=== PATIENT | male | born 1995 | race Caucasian/White ===

== ENCOUNTER 2017-12-06 09:32 | Inpatient (IN) | payer OTHER ==
[2017-12-06 09:40] VITALS: BMI 26.2
[2017-12-06] MEDS ORDERED: ACETAMINOPHEN 500 MG TABLET (FP) PO ONE (12:12)
[2017-12-06] MEDS ORDERED: CLINDAMYCIN 600MG PREMIX IVPB 600 MG/50 ML BAG IVPB ONE ×2 (12:12→13:18)
--- NOTE | 2017-12-06 12:49 | PDOC ---
History of Present Illness - General Chief Complaint: Abscess Boil Stated Complaint: ABSCESS BOIL Time Seen by Provider: 12/06/17 10:37 History Source: Patient, Parent(s) (mother) Exam Limitations: No Limitations - History of Present Illness Initial Comments: 12/06/17 12:00 22-year-old male brought in by mother for evaluation of abscess to the right knee and right arm. Patient with history of cerebral palsy who was mainly wheelchair bound but can pull himself on the ground. Patient goes to day program and mother states unsure when the abscess started on his right arm although she bathes him. She states patient started complaining of the one on his right arm this morning but states the abscess on his right knee started 3 days ago but has worsened in severity over the past few days. Patient denies fever, chills but states pain with movement or palpation minimally relieved with Motrin. Mother denies history of MRSA. Timing/Duration: unsure, getting worse Severity: moderate Associated Symptoms: denies: fever/chills Past History - Travel Traveled outside of the country in the last 30 days: No - Past Medical History Allergies/Adverse Reactions: Allergies Allergy/AdvReac Type Severity Reaction Status Date / Time No Known Allergies Allergy Verified 12/06/17 09:34 Home Medications: Ambulatory Orders Enalapril Maleate 0 mg PO DAILY 12/06/17 Hydrochlorothiazide [Hctz -] 0 mg PO DAILY 12/06/17 Levothyroxine [Synthroid -] 0 mcg PO DAILY 12/06/17 COPD: No Hypercholesterolemia: Yes Thyroid Disease: Yes (HYPER) Other medical history: CEREBRAL PALSY - Suicide/Smoking/Psychosocial Hx Smoking History: Never smoked Have you smoked in the past 12 months: No Information on smoking cessation initiated: No Hx Alcohol Use: No Drug/Substance Use Hx: No Substance Use Type: None Patient Lives Alone: No Lives with/in: parents Review of Systems - Review of Systems Able to Perform ROS?: Yes Constitutional: No: Symptoms Reported HEENTM: No: Symptoms Reported Respiratory: No: Symptoms reported Cardiac (ROS): No: Symptoms Reported ABD/GI: No: Symptoms Reported : No: Symptoms Reported Musculoskeletal: Yes: Joint Pain (right knee) Integumentary: Yes: Erythema, Lumps *Physical Exam - Vital Signs Last Vital Signs Temp Pulse Resp BP Pulse Ox 98.7 F 117 H 18 165/93 100 12/06/17 09:34 12/06/17 09:34 12/06/17 09:34 12/06/17 09:34 12/06/17 09:34 - Physical Exam General Appearance: Yes: Nourished, Appropriately Dressed. No: Apparent Distress Respiratory/Chest: positive: Lungs Clear, Normal Breath Sounds. negative: Respiratory Distress, Accessory Muscle Use Cardiovascular: positive: Regular Rhythm, Tachycardia. negative: Murmur Extremity: positive: Normal Capillary Refill, Tender (noted5 x 3" tender erythematous raised papule with center draining nonodorous purulence drainage. No fluctuance. surrounding skin intact). negative: Normal Inspection (noted 4 x 4 " erythematous raised papule over the right patellla. Noted crepitus to lateral aspect of opened center which is draining minimal purulent drainage. surrounding skin intact), Normal Range of Motion (slightly contracted) Integumentary: positive: Erythema, Swelling Neurologic: positive: Normal Mood/Affect, Motor Strength 02/25 ED Treatment Course - LABORATORY CBC & Chemistry Diagram: 12/06/17 13:30 12/06/17 13:30 - RADIOLOGY Radiology Studies Ordered: Category Date Time Status LOWER EXTREMITY CT W/O CONTR [CT] Stat CT Scan 12/06/17 12:11 Ordered Medical Decision Making - Medical Decision Making 12/06/17 12:12 Patient sent for evaluation of 2 draining abscesses was right forearm and right knee. mother denies history of MRSA. Patient concerning for sepsis secondary to heart rate and clinical presentation of wounds. Patient ordered for IV clindamycin cleaning blood cultures, lactic acid and CT of the right patella. wound culture ordered. 12/06/17 15:19 Laboratory Tests 12/06/17 12/06/17 13:30 13:30 WBC 10.2 H Hgb 15.4 Hct 46.0 Neutrophils % 66.5 Monocytes % 14.6 H Lactic Acid 2.3 H* 12/06/17 16:02 ET of the lower extremity shows confluent complex prepatellar fluid as described above may be attributed to the provided clinical history of abscess. However alternative consideration to be considered including prepatellar bursitis and hematoma. Right prepatellar skin thickening and subcutaneous fat reticulation with fluid extending from the level of the distal femur to the proximal tibia is nonspecific. Please correlate for cellulitis. Pt to be admitted to hospitalist group *DC/Admit/Observation/Transfer Diagnosis at time of Disposition: Elevated lactic acid level, Cellulitis - Discharge Dispostion Admit: Yes - Referrals Referrals: Osmani Lee [Primary Care Provider] - - Patient Instructions - Post Discharge Activity
[2017-12-06] MEDS ORDERED: ACETAMINOPHEN 325 MG TABLET (FP) ONE ×2 (13:19→20:01)
[2017-12-06 13:58] LABS: BASO % 0.3 % (0-2.0); EOS % 0.8 % (0-4.5); HEMOGLOBIN 15.4 GM/dL (11.7-16.9); LYMPH % 17.8 % (8-40); MCH 28.8 pg (25.7-33.7); MCHC 33.5 g/dl (32.0-35.9); MEAN PLT VOLUME 7.8 fl (7.5-11.1); MONO % 14.6 % (3.8-10.2); NEUT % 66.5 % (42.8-82.8); PLATELET COUNT 383 K/MM3 (134-434); RBC 5.35 M/mm3 (4.00-5.60); RDW 12.2 % (11.9-15.9); WHITE BLOOD COUNT 10.2 K/mm3 (4.0-10.0)
--- NOTE | 2017-12-06 18:14 | PDOC ---
*Physical Exam - Vital Signs Last Vital Signs Temp Pulse Resp BP Pulse Ox 98.7 F 117 H 18 165/93 100 12/06/17 09:34 12/06/17 09:34 12/06/17 09:34 12/06/17 09:34 12/06/17 09:34 ED Treatment Course - LABORATORY CBC & Chemistry Diagram: 12/06/17 13:30 12/06/17 13:30 - ADDITIONAL ORDERS Additional order review: Laboratory Results 12/06/17 12/06/17 12/06/17 15:30 13:30 13:30 Sodium Cancelled Cancelled Potassium Cancelled Cancelled Chloride Cancelled Cancelled Carbon Dioxide Cancelled Cancelled Anion Gap Cancelled Cancelled BUN Cancelled Cancelled Creatinine Cancelled Cancelled Creat Clearance w eGFR Cancelled Cancelled Random Glucose Cancelled Cancelled Lactic Acid 2.3 H* Calcium Cancelled Cancelled Total Bilirubin Cancelled Cancelled AST Cancelled Cancelled ALT Cancelled Cancelled Alkaline Phosphatase Cancelled Cancelled Total Protein Cancelled Cancelled Albumin Cancelled Cancelled 12/06/17 13:30 RBC 5.35 MCV 86.0 MCHC 33.5 RDW 12.2 MPV 7.8 Neutrophils % 66.5 Lymphocytes % 17.8 Monocytes % 14.6 H Eosinophils % 0.8 Basophils % 0.3 - Medications Given in the ED: ED Medications Discontinued Medications Generic Name Dose Route Start Last Admin Trade Name Freq PRN Reason Stop Dose Admin Acetaminophen 975 mg 12/06/17 12:12 12/06/17 13:14 Tylenol - PO 12/06/17 12:13 975 mg ONCE ONE Administration Clindamycin Phosphate 600 mg in 50 mls @ 100 mls/hr 12/06/17 12:12 12/06/17 13:14 Cleocin 600 Mg Premix Ivpb - IVPB 12/06/17 12:41 100 mls/hr ONCE ONE Administration Medical Decision Making - Medical Decision Making 12/06/17 18:11 22 yo M h/o CP presenting to the ER due to right arm and right knee abscess Mild surrounding erythema No fevers or chills No drainage Pt has had abscesses in the past ? MRSA GENERAL: The patient is in no acute distress. HEAD: Normal LUNGS: Breath sounds equal, clear to auscultation bilaterally. No wheezes, and no crackles. HEART:Regular rate and rhythm, normal S1 and S2 without murmur, rub or gallop. ABDOMEN: Soft, nontender, normoactive bowel sounds. No guarding, no rebound. No masses palpable. EXTREMITIES: Normal range of motion, no edema. NEUROLOGICAL: Cranial nerves II through XII grossly intact. Normal speech. No focal neurological deficits. MUSCULOSKELETAL: Back non-tender to palpation, no CVA tenderness SKIN: Right forearm abscess Right knee abscess Pt would not allow me to touch the area of tenderness Patient appears to have local abscesses Will plan to give antibiotics Will plan to have patient admitted Clinical impression: Abscess, initial presentation Pt seen by Midlevel Provider under my direct supervision Pt interviewed and examined Ancillary studies reviewed I agree with plan as outlined by Midlevel Provider *DC/Admit/Observation/Transfer Diagnosis at time of Disposition: Elevated lactic acid level, Cellulitis - Referrals Referrals: Osmani Lee [Primary Care Provider] - - Patient Instructions - Post Discharge Activity
[2017-12-06] MEDS ORDERED: VANCOMYCIN 1,000 MG in DEXTROSE 5%-WATER - 250 ML IVPB ONE (18:30)
[2017-12-06 18:49] LABS: ALBUMIN 3.6 g/dl (3.4-5.0); ANION GAP 7 (8-16); BLOOD UREA NITROGEN 12 mg/dL (7-18); CALCIUM 8.7 mg/dL (8.5-10.1); CHLORIDE 97 mmol/L (98-107); CO2 31 mmol/L (21-32); GLUCOSE,RANDOM 93 mg/dL (74-106); POTASSIUM 3.3 mmol/L (3.5-5.1); SGOT/AST 65 U/L (15-37); SODIUM 135 mmol/L (136-145)
[2017-12-06 19:12] LABS: ALK PHOS 107 U/L (45-117); SGPT/ALT 55 U/L (12-78); TOT PROT 7.5 g/dl (6.4-8.2)
[2017-12-06] MEDS ORDERED: PIPERACILLIN/TAZOB 3.375 GM/50 ML PRE-DOCKED IVPB SCH (19:15)
--- NOTE | 2017-12-06 19:16 | HP ---
CHIEF COMPLAINT: Painful abscesses right knee and right arm PCP: Osmani Lee HISTORY OF PRESENT ILLNESS: 22 year-old young man with a PMH significant for hypothyroidism and cerebral palsy with developmental delay, wheelchair bound. Patient brought to the ED by his mother for draining abscesses of his right knee and right forearm. Mother states patient is taken out of his wheelchair at times and is allowed to pull himself across the floor. She noticed a pimple on his right knee about three days ago. Today the pimple became enlarged, painful, and started draining pus. It was only today when patient complained of pain to his right arm that she noticed a similar large, painful, draining abscess on his right forearm. Mother states patient has not had a fever, sweats, or chills, nausea, vomiting, or diarrhea. ER course was notable for: (1) Clindamycin IV 600mg x 1; Tylenol (2) Right knee culture sent Recent Travel: No PAST MEDICAL HISTORY: Hypothyroidism Cerebral palsy Developmental delay PAST SURGICAL HISTORY: Social History: attends [employer]; lives with mother, stepfather, other children Smoking: no Alcohol: no Drugs: no Family History: Allergies No Known Allergies Allergy (Verified 12/06/17 09:34) HOME MEDICATIONS: Home Medications Medication Instructions Recorded Enalapril Maleate 0 mg PO DAILY 12/06/17 Hydrochlorothiazide [Hctz -] 0 mg PO DAILY 12/06/17 Levothyroxine [Synthroid -] 0 mcg PO DAILY 12/06/17 REVIEW OF SYSTEMS CONSTITUTIONAL: Absent: fever, chills, diaphoresis, generalized weakness, malaise, loss of appetite, weight change HEENT: Absent: rhinorrhea, nasal congestion, throat pain, throat swelling, difficulty swallowing, mouth swelling, ear pain, eye pain, visual changes CARDIOVASCULAR: Absent: chest pain, syncope, palpitations, irregular heart rate, lightheadedness , peripheral edema RESPIRATORY: Absent: cough, shortness of breath, dyspnea with exertion, orthopnea, wheezing, stridor, hemoptysis GASTROINTESTINAL: Absent: abdominal pain, abdominal distension, nausea, vomiting, diarrhea, constipation, melena, hematochezia GENITOURINARY: Absent: dysuria, frequency, urgency, hesitancy, hematuria, flank pain, genital pain MUSCULOSKELETAL: Absent: myalgia, arthralgia, joint swelling, back pain, neck pain SKIN: +right knee abscess, right forearm abscess Absent: rash, itching, pallor HEMATOLOGIC/IMMUNOLOGIC: Absent: easy bleeding, easy bruising, lymphadenopathy, frequent infections ENDOCRINE: Absent: unexplained weight gain, unexplained weight loss, heat intolerance, cold intolerance NEUROLOGIC: Absent: headache, focal weakness or paresthesias, dizziness, unsteady gait, seizure, mental status changes, bladder or bowel incontinence PSYCHIATRIC: Absent: anxiety, depression, suicidal or homicidal ideation, hallucinations. PHYSICAL EXAMINATION Vital Signs - 24 hr 12/06/17 09:34 Temperature 98.7 F Pulse Rate 117 H Respiratory 18 Rate Blood Pressure 165/93 O2 Sat by Pulse 100 Oximetry (%) GENERAL/NEURO: Awake, alert, and fully oriented. Tearful, distressed about mother leaving him alone. HEAD: Normal with no signs of trauma. EYES: Pupils equal, round and reactive to light, extraocular movements intact, sclera anicteric, conjunctiva clear. No lid lag. EARS, NOSE, THROAT: Ears normal, nares patent, oropharynx clear without exudates. Moist mucous membranes. NECK: Normal range of motion, supple without lymphadenopathy, JVD, or masses. LUNGS: Breath sounds equal, clear to auscultation bilaterally. No wheezes, and no crackles. No accessory muscle use. HEART: Regular rate and rhythm, normal S1 and S2 without murmur, rub or gallop. ABDOMEN: Soft, nontender, not distended, normoactive bowel sounds, no guarding, no rebound, no masses. MUSCULOSKELETAL: Normal range of motion at all joints. No bony deformities or tenderness. No CVA tenderness. UPPER EXTREMITIES: RIGHT FOREARM: large, approx 10cm in circumference, area of induration with a raised center, erythematous, warm to touch, no drainage observed LOWER EXTREMITIES: RIGHT KNEE: large, approx 8cm in circumference, area of induration, fluid, with raised center, erythematous, warm to touch, no drainage observed Laboratory Results - last 24 hr 12/06/17 12/06/17 12/06/17 13:30 13:30 13:30 WBC 10.2 H RBC 5.35 Hgb 15.4 Hct 46.0 MCV 86.0 MCH 28.8 MCHC 33.5 RDW 12.2 Plt Count 383 MPV 7.8 Neutrophils % 66.5 Lymphocytes % 17.8 Monocytes % 14.6 H Eosinophils % 0.8 Basophils % 0.3 Sodium Cancelled Potassium Cancelled Chloride Cancelled Carbon Dioxide Cancelled Anion Gap Cancelled BUN Cancelled Creatinine Cancelled Creat Clearance w eGFR Cancelled Random Glucose Cancelled Lactic Acid 2.3 H* Calcium Cancelled Total Bilirubin Cancelled AST Cancelled ALT Cancelled Alkaline Phosphatase Cancelled Total Protein Cancelled Albumin Cancelled 12/06/17 15:30 WBC RBC Hgb Hct MCV MCH MCHC RDW Plt Count MPV Neutrophils % Lymphocytes % Monocytes % Eosinophils % Basophils % Sodium Cancelled Potassium Cancelled Chloride Cancelled Carbon Dioxide Cancelled Anion Gap Cancelled BUN Cancelled Creatinine Cancelled Creat Clearance w eGFR Cancelled Random Glucose Cancelled Lactic Acid Calcium Cancelled Total Bilirubin Cancelled AST Cancelled ALT Cancelled Alkaline Phosphatase Cancelled Total Protein Cancelled Albumin Cancelled Imaging 12/06 CT RLE: mild confluent fluid within subq fat and subq fat reticulation from distal femur to proximal tibia; fluid overlying the patella with extension posteriorly; thickening of quadricepts tendon suggestive of tendinopathy with possible tears. ASSESSMENT/PLAN: 22 year-old young man with a PMH significant for hypothyroidism and cerebral palsy with developmental delay, admitted for two large, draining skin abscesses. Right forearm abscess Right knee abscess Cellulitis --start vanco and Zosyn --ortho consult for knee; will see if ortho will address arm abscess, if not will need general surgery --ID consult --Tylenol PRN (mother does not want narcotics to be given) Hypothyroidism --TSH ordered --continue levothyroxine Hypertension --continue enalapril, HCTZ FEN Fluids: PO intake adequate Electrolytes: replete as indicated Nutrition: low sodium DVT prophylaxis: hold chemical prophylaxis pending surgical intervention; SCD left leg Physical therapy: ROM Dispo: continues to require inpatient care. Full code. Visit type - Emergency Visit Emergency Visit: Yes ED Registration Date: 12/06/17 Care time: The patient presented to the Emergency Department on the above date and was hospitalized for further evaluation of their emergent condition. - New Patient This patient is new to me today: Yes Date on this admission: 12/07/17 - Critical Care Critical Care patient: No
[2017-12-06] MEDS ORDERED: HYDROCHLOROTHIAZIDE 25 MG TABLET (FP) ONE ×2 (21:16→22:56)
[2017-12-06] MEDS ORDERED: ENALAPRIL MALEATE 5 MG TABLET (FP) ONE ×2 (21:16→22:56)
[2017-12-06] MEDS ORDERED: PIPERACILLIN/TAZOB 3.375 GM 3.375 GM/50 ML BAG IVPB ONE (21:17)
[2017-12-06] MEDS: ENALAPRIL MALEATE 2.5 MG TABLET (FP) PO SCH (22:04)
[2017-12-06] MEDS: HYDROCHLOROTHIAZIDE 12.5 MG CAPSULE (FP) PO SCH (22:04)
[2017-12-06] MEDS: PIPERACILLIN/TAZOB 3.375 GM 3.375 GM in DEXTROSE 5%-WATER - 50 ML IVPB SCH (22:04)
[2017-12-06] MEDS: HEPARIN NA (PORCINE) 5,000 UNITS/ML 1ML VIAL SQ SCH (22:05)
[2017-12-07] MEDS ORDERED: POTASSIUM CHLORIDE TABS 20 MEQ TABLET.ER (FP) PO ONE ×2 (01:35→07:35)
[2017-12-07] MEDS: POTASSIUM CHLORIDE TABS 20 MEQ TABLET.ER (FP) PO SCH ×2 (02:03→08:08)
[2017-12-07] MEDS ORDERED: PIPERACILLIN/TAZOB 3.375 GM 3.375 GM/50 ML BAG IVPB ONE (02:29)
[2017-12-07] MEDS: PIPERACILLIN/TAZOB 3.375 GM 3.375 GM in DEXTROSE 5%-WATER - 50 ML IVPB SCH (02:43)
[2017-12-07] MEDS ORDERED: LEVOTHYROXINE NA 25 MCG TABLET (FP) ONE (07:35)
[2017-12-07 07:41] LABS: BASO % 0.2 % (0-2.0); EOS % 3.7 % (0-4.5); HEMATOCRIT 45.6 % (35.4-49); LYMPH % 27.5 % (8-40); MCH 28.6 pg (25.7-33.7); MEAN CELL VOLUME 86.8 fl (80-96); MEAN PLT VOLUME 8.2 fl (7.5-11.1); MONO % 15.4 % (3.8-10.2); NEUT % 53.2 % (42.8-82.8); PLATELET COUNT 330 K/MM3 (134-434); RBC 5.26 M/mm3 (4.00-5.60); RDW 12.7 % (11.9-15.9); WHITE BLOOD COUNT 6.4 K/mm3 (4.0-10.0)
[2017-12-07] MEDS ORDERED: POTASSIUM CHLORIDE ORAL LIQUID 20 MEQ/15 ML ONE (07:48)
[2017-12-07 08:08] LABS: CHLORIDE 98 mmol/L (98-107); SODIUM 136 mmol/L (136-145)
[2017-12-07] MEDS: LEVOTHYROXINE NA 25 MCG TABLET (FP) PO SCH (08:08)
[2017-12-07 08:18] LABS: ALBUMIN 3.4 g/dl (3.4-5.0); ALK PHOS 103 U/L (45-117); ANION GAP 10 (8-16); BILIRUBIN,TOTAL 0.8 mg/dL (0.2-1.0); BLOOD UREA NITROGEN 11 mg/dL (7-18); CALCIUM 8.7 mg/dL (8.5-10.1); CO2 28 mmol/L (21-32); CREATININE 1.2 mg/dL (0.7-1.3); GLUCOSE,RANDOM 86 mg/dL (74-106); MAGNESIUM 1.8 mg/dL (1.8-2.4); PHOSPHOROUS 3.9 mg/dL (2.5-4.9); SGOT/AST 59 U/L (15-37); SGPT/ALT 58 U/L (12-78); TOT PROT 7.2 g/dl (6.4-8.2)
[2017-12-07] MEDS: ENALAPRIL MALEATE 2.5 MG TABLET (FP) PO SCH (11:00)
[2017-12-07] MEDS: HYDROCHLOROTHIAZIDE 12.5 MG CAPSULE (FP) PO SCH (11:00)
[2017-12-07] MEDS: HEPARIN NA (PORCINE) 5,000 UNITS/ML 1ML VIAL SQ SCH (12:15)
--- NOTE | 2017-12-07 12:41 | PN ---
Physical Exam: SUBJECTIVE: Patient seen and examined with mother present. Periods of agitation , expresses he wants to go home. OBJECTIVE: Vital Signs Period Temp Pulse Resp BP Sys/Hubbard Pulse Ox Last 24 Hr 98.4 F-98.5 F 78-101 16-18 128-148/74-110 99-99 GENERAL/NEURO: Awake, alert, and fully oriented. Anxious. LUNGS: Breath sounds equal, clear to auscultation bilaterally. No wheezes, and no crackles. No accessory muscle use. HEART: Regular rate and rhythm, normal S1 and S2 without murmur, rub or gallop. ABDOMEN: Soft, nontender, not distended, normoactive bowel sounds, no guarding, no rebound, no masses. MUSCULOSKELETAL: Normal range of motion at all joints. No bony deformities or tenderness. No CVA tenderness. UPPER EXTREMITIES: RIGHT FOREARM: large, approx 10cm in circumference, area of induration with a raised center, erythema improved, warm to touch, no drainage observed LOWER EXTREMITIES: RIGHT KNEE: large, approx 8cm in circumference, area of induration, fluid, with raised center, erythema improved, warm to touch, no drainage observed Laboratory Results - last 24 hr 12/06/17 12/06/17 12/06/17 13:30 13:30 13:30 WBC 10.2 H RBC 5.35 Hgb 15.4 Hct 46.0 MCV 86.0 MCH 28.8 MCHC 33.5 RDW 12.2 Plt Count 383 MPV 7.8 Neutrophils % 66.5 Lymphocytes % 17.8 Monocytes % 14.6 H Eosinophils % 0.8 Basophils % 0.3 Sodium Cancelled Potassium Cancelled Chloride Cancelled Carbon Dioxide Cancelled Anion Gap Cancelled BUN Cancelled Creatinine Cancelled Creat Clearance w eGFR Cancelled Random Glucose Cancelled Lactic Acid 2.3 H* Calcium Cancelled Phosphorus Magnesium Total Bilirubin Cancelled AST Cancelled ALT Cancelled Alkaline Phosphatase Cancelled Total Protein Cancelled Albumin Cancelled 12/06/17 12/06/17 12/07/17 15:30 16:05 06:30 WBC 6.4 D RBC 5.26 Hgb 15.0 Hct 45.6 MCV 86.8 MCH 28.6 MCHC 33.0 RDW 12.7 Plt Count 330 MPV 8.2 Neutrophils % 53.2 Lymphocytes % 27.5 D Monocytes % 15.4 H Eosinophils % 3.7 D Basophils % 0.2 Sodium Cancelled 135 L Potassium Cancelled 3.3 L Chloride Cancelled 97 L Carbon Dioxide Cancelled 31 Anion Gap Cancelled 7 L BUN Cancelled 12 Creatinine Cancelled 1.0 Creat Clearance w eGFR Cancelled > 60 Random Glucose Cancelled 93 Lactic Acid Calcium Cancelled 8.7 Phosphorus Magnesium Total Bilirubin Cancelled 1.0 AST Cancelled 65 H ALT Cancelled 55 Alkaline Phosphatase Cancelled 107 Total Protein Cancelled 7.5 Albumin Cancelled 3.6 12/07/17 12/07/17 06:30 06:57 WBC RBC Hgb Hct MCV MCH MCHC RDW Plt Count MPV Neutrophils % Lymphocytes % Monocytes % Eosinophils % Basophils % Sodium 136 Potassium 4.0 D Chloride 98 Carbon Dioxide 28 Anion Gap 10 BUN 11 Creatinine 1.2 Creat Clearance w eGFR > 60 Random Glucose 86 Lactic Acid 1.5 Calcium 8.7 Phosphorus 3.9 Magnesium 1.8 Total Bilirubin 0.8 AST 59 H ALT 58 Alkaline Phosphatase 103 Total Protein 7.2 Albumin 3.4 Active Medications Generic Name Dose Route Start Last Admin Trade Name Freq PRN Reason Stop Dose Admin Enalapril Maleate 2.5 mg 12/06/17 19:00 12/07/17 11:00 Vasotec - PO 2.5 mg DAILY JUAN Administration Hydrochlorothiazide 12.5 mg 12/06/17 19:00 12/07/17 11:00 Hctz - PO 12.5 mg DAILY JUAN Administration Levothyroxine Sodium 25 mcg 12/07/17 07:00 12/07/17 08:08 Synthroid - PO 25 mcg DAILY@0700 JUAN Administration Piperacillin Sod/Tazobactam Sod 3.375 gm 12/06/17 19:15 Zosyn 3.375gm Ivpb (Pre-Docked) IVPB Q8H [facility] Protocol ASSESSMENT/PLAN Imaging 12/06 CT RLE: mild confluent fluid within subq fat and subq fat reticulation from distal femur to proximal tibia; fluid overlying the patella with extension posteriorly; thickening of quadricepts tendon suggestive of tendinopathy with possible tears. ASSESSMENT/PLAN: 22 year-old young man with a PMH significant for hypothyroidism and cerebral palsy with developmental delay, admitted for two large, draining skin abscesses. Right forearm abscess Right knee abscess Cellulitis --mother gives history of boils, does not know MRSA status; continue vanco ( day #2) --ortho consult for knee, discussed with Dr. Vera --general surgery for arm, Dr. Ford requested --ID following --Tylenol PRN (mother does not want narcotics to be given) Hypothyroidism --TSH very elevated 53.50 --free T4 ordered --continue levothyroxine Hypertension Tachycardia --may be thyroid-related --increase enalapril to 5mg daily; continue HCTZ FEN Fluids: PO intake adequate Electrolytes: replete as indicated Nutrition: low sodium DVT prophylaxis: hold chemical prophylaxis pending surgical intervention; SCD left leg Physical therapy: ROM Dispo: continues to require inpatient care. Full code. Visit type - Emergency Visit Emergency Visit: Yes ED Registration Date: 12/06/17 Care time: The patient presented to the Emergency Department on the above date and was hospitalized for further evaluation of their emergent condition. - New Patient This patient is new to me today: No - Critical Care Critical Care patient: No
[2017-12-07] MEDS ORDERED: VANCOMYCIN 1 GRAM (PRE-DOCKED) 1,000 MG/250 ML BAG IVPB ONE (13:45)
--- NOTE | 2017-12-07 13:48 | CON.ID ---
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 presents with worsening abscess on his right arm and right knee he gets frequent skin boils- mom places warm compresses and they usually pop sometimes he takes antibiotics she is unaware of MRSA status no fevers/chills eating well - History Source History Provided By: Family Member Limitations to Obtaining History: Clinical Condition - Past Medical History PHERESIS SPECIALIST: Yes: Other (cerebral palsy) Endocrine: Yes: Hypothyroidism - Alcohol/Substance Use Hx Alcohol Use: No - Smoking History Smoking history: Never smoked Have you smoked in the past 12 months: No - Social History Usual Living Arrangement: With Parent ADL: Family Assistance Place of : [facility] History of Recent Travel: No Home Medications - Allergies Allergies/Adverse Reactions: Allergies Allergy/AdvReac Type Severity Reaction Status Date / Time No Known Allergies Allergy Verified 12/06/17 09:34 - Home Medications Home Medications: Ambulatory Orders Enalapril Maleate 0 mg PO DAILY 12/06/17 Hydrochlorothiazide [Hctz -] 0 mg PO DAILY 12/06/17 Levothyroxine [Synthroid -] 0 mcg PO DAILY 12/06/17 Family Disease History - Family Disease History Family History: Unable to Obtain Review of Systems - Review of Systems Constitutional: reports: No Symptoms. denies: Chills, Fever Eyes: reports: No Symptoms HENT: reports: No Symptoms Neck: reports: No Symptoms Cardiovascular: denies: Chest Pain Respiratory: denies: Cough, SOB Gastrointestinal: denies: Abdominal Pain Musculoskeletal: reports: No Symptoms Integumentary: reports: Other (abscesses) Physical Exam Vital Signs: Vital Signs Temperature 98.4 F 12/06/17 22:05 Pulse Rate 101 H 12/07/17 10:30 Respiratory Rate 18 12/07/17 10:30 Blood Pressure 148/110 12/07/17 10:30 O2 Sat by Pulse Oximetry (%) 99 12/07/17 10:30 Constitutional: Yes: Well Nourished, Anxious HENT: Yes: Atraumatic, Normocephalic Neck: Yes: Supple, Trachea Midline Cardiovascular: Yes: Regular Rate and Rhythm Respiratory: Yes: Regular, CTA Bilaterally Gastrointestinal: Yes: Normal Bowel Sounds, Soft Extremities: Yes: Other (right elbow with 3 cm abscess on patella, 2 cm abscess right upper arm +erythema) Labs: CBC, BMP 12/07/17 06:30 12/07/17 06:30 cultures pending Imaging - Results Cat Scan: Report Reviewed Problem List - Problems (1) Abscess Code(s): L02.91 - CUTANEOUS ABSCESS, UNSPECIFIED (2) Cerebral palsy Code(s): G80.9 - CEREBRAL PALSY, UNSPECIFIED Assessment/Plan skin abscesses with history of recurrent skin boils most likely staph or strep continue vancomycin, surgical evaluation
[2017-12-07] MEDS: VANCOMYCIN 1,000 MG in DEXTROSE 5%-WATER - 250 ML IVPB SCH ×2 (13:50→14:09)
--- NOTE | 2017-12-07 15:36 | PN ---
Progress Note (short form) - Note Progress Note: General Surgery: Pt seen and examined with his mother at the bedside. She states that while changing his shirt he flinched with pain and stated that his arm hurt. His mother was aware of his right knee redness and had been applying warm compresses. This has happened to him in the past because he is wheelchair bound but does crawl on his forearms. No fevers/chills. Overall, the mother states that his arm has improved, not as red PMHX: Cerebral palsy, developmental delay, hypothyroidism Vital Signs Period Temp Pulse Resp BP Sys/Hubbard Pulse Ox Last 24 Hr 98.4 F-98.5 F 78-101 16-18 128-148/74-110 99-99 GEN: appears comfortable Right upper ext: quarter sized scab area with mild erythema approximately 1cm. Mild induration/no purulent drainage but somewhat difficult to access the level of tenderness because pt retracts his arm with examination. CBC, BMP 12/07/17 06:30 12/07/17 06:30 Microbiology 12/06/17 13:30 Blood - Peripheral Venous Blood Culture - Preliminary NO GROWTH OBTAINED AFTER 24 HOURS, INCUBATION TO CONTINUE FOR 4 DAYS. 12/06/17 13:15 Blood - Peripheral Venous Blood Culture - Preliminary NO GROWTH OBTAINED AFTER 24 HOURS, INCUBATION TO CONTINUE FOR 4 DAYS. A/P: 22 yo male with CP right forearm abscess Abscess seems to be clinically improving, he was treated with IV Vacno/zosyn Recommend warm compresses to the area with bacitracin daily and keep the area covered D/w Dr. Ford and he agress with the care plan If the patient is to be discharged recommend the above local wound care with continued oral antibiotics as per ID Pt to f/u with Dr. Ford in his office for wound check
[2017-12-07] MEDS: ENALAPRIL MALEATE 5 MG TABLET (FP) PO SCH (17:02)
--- NOTE | 2017-12-07 17:46 | CONSULT ---
Consult - History of Present Illness History of Present Illness: 22y/o male c/o right knee pain which began 4 days ago. mother states he crawls on the ground and might have had a small cut on the knee. Pt has a history of CP and is unable to walk. He had increased pain, swelling and redness of the knee and was eventually taken to the ER. Has been on IV abx and symptoms have been improving. - History Source History Provided By: Patient, Medical Record - Past Medical History [employer]: Yes: Other (cerebral palsy) Endocrine: Yes: Hypothyroidism - Alcohol/Substance Use Hx Alcohol Use: No - Smoking History Smoking history: Never smoked Have you smoked in the past 12 months: No - Social History Usual Living Arrangement: With Parent ADL: Family Assistance History of Recent Travel: No Home Medications - Allergies Allergies/Adverse Reactions: Allergies Allergy/AdvReac Type Severity Reaction Status Date / Time No Known Allergies Allergy Verified 12/06/17 09:34 - Home Medications Home Medications: Ambulatory Orders Enalapril Maleate 0 mg PO DAILY 12/06/17 Hydrochlorothiazide [Hctz -] 0 mg PO DAILY 12/06/17 Levothyroxine [Synthroid -] 0 mcg PO DAILY 12/06/17 Review of Systems - Review of Systems Constitutional: reports: No Symptoms Eyes: reports: No Symptoms HENT: reports: No Symptoms Neck: reports: No Symptoms Cardiovascular: reports: No Symptoms Respiratory: reports: No Symptoms Gastrointestinal: reports: No Symptoms Genitourinary: reports: No Symptoms Breasts: reports: No Symptoms Reported Musculoskeletal: reports: No Symptoms Integumentary: reports: No Symptoms Neurological: reports: No Symptoms Endocrine: reports: No Symptoms Hematology/Lymphatic: reports: No Symptoms Psychiatric: reports: No Symptoms Physical Exam Vital Signs: Vital Signs Temperature 98.3 F 12/07/17 17:07 Pulse Rate 113 H 12/07/17 17:07 Respiratory Rate 20 12/07/17 17:07 Blood Pressure 154/114 12/07/17 17:07 O2 Sat by Pulse Oximetry (%) 96 12/07/17 17:07 Constitutional: Yes: Well Nourished, Calm HENT: Yes: Atraumatic, Normocephalic Musculoskeletal: Yes: Other (Right knee: There is a aproxamently 1.5cmx1.5cm area of erythema along the patella. there is mild swelling in this area and a healed wound without drainage along the patella. No palpable abcess. No joint space tenderness. Smooth motion of the knee 0-90 degrees. has mild discomfort with ROM. patella centrally tracking. Calf nontender. Compartments soft. NVID.) Labs: CBC, BMP 12/07/17 06:30 12/07/17 06:30 Imaging - Results Cat Scan: Report Reviewed, Image Reviewed (Prepatellar fluid.) Assessment/Plan Right knee cellulitis, improving on IV abx -Continue ABX per ID -No surgical intervention indicated at this time -Awaiting C/S -Please reconsult if needed
[2017-12-07] MEDS: ACETAMINOPHEN 325 MG TABLET (FP) PO PRN (18:31)
[2017-12-07] MEDS: BACITRACIN 15 GM TUBE TOPICAL OINTMENT TP SCH (22:18)
[2017-12-08] MEDS: VANCOMYCIN 1,000 MG in DEXTROSE 5%-WATER - 250 ML IVPB SCH ×2 (01:36→14:39)
[2017-12-08] MEDS: ACETAMINOPHEN 325 MG TABLET (FP) PO PRN ×3 (01:57→21:07)
[2017-12-08] MEDS: LEVOTHYROXINE NA 25 MCG TABLET (FP) PO SCH (06:13)
[2017-12-08 07:41] LABS: BASO % 0.4 % (0-2.0); EOS % 4.4 % (0-4.5); HEMATOCRIT 43.9 % (35.4-49); HEMOGLOBIN 14.5 GM/dL (11.7-16.9); LYMPH % 30.2 % (8-40); MCH 28.7 pg (25.7-33.7); MEAN CELL VOLUME 87.1 fl (80-96); MEAN PLT VOLUME 8.1 fl (7.5-11.1); MONO % 13.1 % (3.8-10.2); NEUT % 51.9 % (42.8-82.8); PLATELET COUNT 366 K/MM3 (134-434); RBC 5.04 M/mm3 (4.00-5.60); RDW 12.5 % (11.9-15.9); WHITE BLOOD COUNT 7.1 K/mm3 (4.0-10.0)
[2017-12-08 07:56] LABS: ALBUMIN 3.5 g/dl (3.4-5.0); ANION GAP 5 (8-16); BLOOD UREA NITROGEN 11 mg/dL (7-18); CALCIUM 8.8 mg/dL (8.5-10.1); CHLORIDE 99 mmol/L (98-107); CO2 33 mmol/L (21-32); GLUCOSE,RANDOM 87 mg/dL (74-106); MAGNESIUM 1.9 mg/dL (1.8-2.4); SGPT/ALT 52 U/L (12-78); SODIUM 137 mmol/L (136-145)
[2017-12-08 08:00] LABS: ALK PHOS 101 U/L (45-117); BILIRUBIN,TOTAL 0.7 mg/dL (0.2-1.0); CREATININE 1.2 mg/dL (0.7-1.3); SGOT/AST 33 U/L (15-37); TOT PROT 7.5 g/dl (6.4-8.2)
--- NOTE | 2017-12-08 10:04 | PN ---
Progress Note (short form) - Note Progress Note: Subjective: The patient was seen and examined at the bedside, he states he knee no longer hurts. He states he is missing his mother Current Medications Generic Name Dose Route Start Last Admin Trade Name Freq PRN Reason Stop Dose Admin Acetaminophen 650 mg 12/07/17 18:21 12/08/17 01:57 Tylenol - PO 650 mg Q6H PRN Administration PAIN LEVEL 6-10 Bacitracin 1 applic 12/07/17 22:00 12/07/17 22:18 Bacitracin - TP 1 applic BID JUAN Administration Enalapril Maleate 5 mg 12/07/17 14:53 12/07/17 17:02 Vasotec - PO 5 mg DAILY JUAN Administration Hydrochlorothiazide 12.5 mg 12/06/17 19:00 12/07/17 11:00 Hctz - PO 12.5 mg DAILY JUAN Administration Vancomycin HCl 1,000 mg/ 250 mls @ 166.667 mls/hr 12/07/17 13:45 12/08/17 01: 36 Dextrose IVPB 166.667 mls/hr BID@0200,1400 JUAN Administration Protocol Levothyroxine Sodium 25 mcg 12/07/17 07:00 12/08/17 06:13 Synthroid - PO 25 mcg DAILY@0700 JUAN Administration Objective: Vital Signs Period Temp Pulse Resp BP Sys/Hubbard Pulse Ox Last 24 Hr 98.3 F-99.3 F 64-113 18-20 134-154/78-114 96-99 Physical Exam: General: NAD HEENT: B/l strabismus Lungs: CTA bilaterally Heart: RRR, S1S2 Abd: Soft, non-tender, non-distended. Normoactive bowel sounds Ext: Right knee with anterior scab, no drainage, mild erythema. No tenderness. Right forearm abscess CBCD WBC 7.1 K/mm3 (4.0-10.0) 12/08/17 06:00 RBC 5.04 M/mm3 (4.00-5.60) 12/08/17 06:00 Hgb 14.5 GM/dL (11.7-16.9) 12/08/17 06:00 Hct 43.9 % (35.4-49) 12/08/17 06:00 MCV 87.1 fl (80-96) 12/08/17 06:00 MCHC 33.0 g/dl (32.0-35.9) 12/08/17 06:00 RDW 12.5 % (11.9-15.9) 12/08/17 06:00 Plt Count 366 K/MM3 (134-434) 12/08/17 06:00 MPV 8.1 fl (7.5-11.1) 12/08/17 06:00 CMP Sodium 137 mmol/L (136-145) 12/08/17 06:00 Potassium 4.0 mmol/L (3.5-5.1) 12/08/17 06:00 Chloride 99 mmol/L (98-107) 12/08/17 06:00 Carbon Dioxide 33 mmol/L (21-32) H 12/08/17 06:00 Anion Gap 5 (8-16) L 12/08/17 06:00 BUN 11 mg/dL (7-18) 12/08/17 06:00 Creatinine 1.2 mg/dL (0.7-1.3) 12/08/17 06:00 Creat Clearance w eGFR > 60 (>60) 12/08/17 06:00 Random Glucose 87 mg/dL (74-106) 12/08/17 06:00 Calcium 8.8 mg/dL (8.5-10.1) 12/08/17 06:00 Total Bilirubin 0.7 mg/dL (0.2-1.0) 12/08/17 06:00 AST 33 U/L (15-37) D 12/08/17 06:00 ALT 52 U/L (12-78) 12/08/17 06:00 Alkaline Phosphatase 101 U/L (45-117) 12/08/17 06:00 Total Protein 7.5 g/dl (6.4-8.2) 12/08/17 06:00 Albumin 3.5 g/dl (3.4-5.0) 12/08/17 06:00 Microbiology 12/06/17 13:19 Knee - Right Gram Stain - Final 12/06/17 13:30 Blood - Peripheral Venous Blood Culture - Preliminary NO GROWTH OBTAINED AFTER 24 HOURS, INCUBATION TO CONTINUE FOR 4 DAYS. 12/06/17 13:15 Blood - Peripheral Venous Blood Culture - Preliminary NO GROWTH OBTAINED AFTER 24 HOURS, INCUBATION TO CONTINUE FOR 4 DAYS. Assessment: This is a 22 year old male with PMHx of hypothyroidism, cerebral palsy with developmental delay, who presented to the ED with two skin abscesses. Plan: 1) Right forearm abscess, right knee abscess with cellulitis - Mother states patient gets frequent skin boils for which she treats with warm soaks - Continue Vancomycin (12/06- ) - F/u wound culture - Per surgery, warm compresses to area with bacitracin daily. Keep area covered - Ortho consult appreciated, no surgical intervention at this time 2) Hypothyroidism - TSH 53.5, T4 1.01 - Called pharmacy and verified dosage of Synthroid 137mcg daily. Given high TSH (with tachycardia), will increase to 150mcg daily - Will need repeat TSH testing in 2 weeks 3) F/E/N: - Sodium controlled diet - Monitor electrolytes 4) Prophylaxis: - Heparin 5,000u sq tid 5) Dispo: - Requires continued inpatient care CODE STATUS: FULL CODE Visit type - Emergency Visit Emergency Visit: Yes ED Registration Date: 12/06/17 Care time: The patient presented to the Emergency Department on the above date and was hospitalized for further evaluation of their emergent condition. - New Patient This patient is new to me today: Yes Date on this admission: 12/08/17 - Critical Care Critical Care patient: No
[2017-12-08] MEDS: HYDROCHLOROTHIAZIDE 12.5 MG CAPSULE (FP) PO SCH (10:09)
[2017-12-08] MEDS: BACITRACIN 15 GM TUBE TOPICAL OINTMENT TP SCH ×2 (10:09→21:03)
[2017-12-08] MEDS: ENALAPRIL MALEATE 5 MG TABLET (FP) PO SCH (10:09)
[2017-12-08] MEDS ORDERED: LEVOTHYROXINE NA 25 MCG TABLET (FP) PO SCH (10:27)
--- NOTE | 2017-12-08 10:33 | PN ---
Progress Note (short form) - Note Progress Note: Attending Surgeon Patient seen and evaluated; concur w/ a/p as outlined by GUEVARA Mcmahan 12/07/17. Barry Ford MD FACS
[2017-12-08] MEDS ORDERED: LEVOTHYROXINE 112 MCG, LEVOTHYROXINE 25 MCG PO SCH (11:00)
[2017-12-08] MEDS: LEVOTHYROXINE NA 150 MCG TABLET PO SCH (12:32)
[2017-12-08] MEDS: HEPARIN NA (PORCINE) 5,000 UNITS/ML 1ML VIAL SQ SCH ×2 (14:39→21:03)
[2017-12-08] MEDS ORDERED: DOCUSATE SODIUM 100 MG CAPSULE (FP) PO PRN (16:23)
[2017-12-08] MEDS: POLYETHYLENE GLYCOL 3350 119 GM BTL PO SCH (18:31)
[2017-12-09] MEDS: VANCOMYCIN 1,000 MG in DEXTROSE 5%-WATER - 250 ML IVPB SCH ×2 (01:14→17:15)
[2017-12-09] MEDS ORDERED: ONDANSETRON 4 MG/2 ML VIAL IVPUSH ONE (03:13)
[2017-12-09] MEDS ORDERED: ONDANSETRON 4 MG/2 ML VIAL ONE (03:23)
[2017-12-09] MEDS: LEVOTHYROXINE NA 150 MCG TABLET PO SCH (06:05)
[2017-12-09] MEDS: HEPARIN NA (PORCINE) 5,000 UNITS/ML 1ML VIAL SQ SCH ×2 (06:05→17:15)
[2017-12-09] MEDS ORDERED: LEVOTHYROXINE 112 MCG, LEVOTHYROXINE 25 MCG PO SCH (07:00)
[2017-12-09] MEDS: ACETAMINOPHEN 325 MG TABLET (FP) PO PRN (10:05)
[2017-12-09] MEDS: HYDROCHLOROTHIAZIDE 12.5 MG CAPSULE (FP) PO SCH (10:05)
[2017-12-09] MEDS: POLYETHYLENE GLYCOL 3350 119 GM BTL PO SCH (10:06)
[2017-12-09] MEDS: BACITRACIN 15 GM TUBE TOPICAL OINTMENT TP SCH (10:06)
[2017-12-09] MEDS: ENALAPRIL MALEATE 5 MG TABLET (FP) PO SCH (10:06)
--- NOTE | 2017-12-09 11:11 | PN ---
Progress Note (short form) - Note Progress Note: Subjective: The patient was seen and examined at the bedside, he states his right knee hurts, has just received Tylenol prior to exam Current Medications Generic Name Dose Route Start Last Admin Trade Name Freq PRN Reason Stop Dose Admin Acetaminophen 650 mg 12/07/17 18:21 12/09/17 10:05 Tylenol - PO 650 mg Q6H PRN Administration PAIN LEVEL 6-10 Bacitracin 1 applic 12/07/17 22:00 12/09/17 10:06 Bacitracin - TP 1 applic BID JUAN Administration Docusate Sodium 100 mg 12/08/17 16:23 12/08/17 21:08 Colace - PO 100 mg Q8H PRN Administration CONSTIPATION Enalapril Maleate 5 mg 12/07/17 14:53 12/09/17 10:06 Vasotec - PO 5 mg DAILY JUAN Administration Heparin Sodium (Porcine) 5,000 unit 12/08/17 14:00 12/09/17 06:05 Heparin - SQ 5,000 unit TID JUAN Administration Hydrochlorothiazide 12.5 mg 12/06/17 19:00 12/09/17 10:05 Hctz - PO 12.5 mg DAILY JUAN Administration Vancomycin HCl 1,000 mg/ 250 mls @ 166.667 mls/hr 12/07/17 13:45 12/09/17 01: 14 Dextrose IVPB 166.667 mls/hr BID@0200,1400 JUAN Administration Protocol Levothyroxine Sodium 150 mcg 12/08/17 11:00 12/09/17 06:05 Synthroid - PO 150 mcg DAILY@0700 JUAN Administration Polyethylene Glycol 17 gm 12/08/17 16:30 12/09/17 10:06 Miralax (For Daily Use) - PO 17 gm DAILY JUAN Administration Objective: Vital Signs Period Temp Pulse Resp BP Sys/Hubbard Pulse Ox Last 24 Hr 97.9 F-98.8 F 77-113 18-18 129-144/76-96 97 Physical Exam: General: NAD HEENT: B/l strabismus Lungs: CTA bilaterally Heart: RRR, S1S2 Abd: Soft, non-tender, non-distended. Normoactive bowel sounds Ext: Right knee with anterior scab, no drainage, mild erythema. No tenderness. Right forearm abscess CBCD WBC 7.1 K/mm3 (4.0-10.0) 12/08/17 06:00 RBC 5.04 M/mm3 (4.00-5.60) 12/08/17 06:00 Hgb 14.5 GM/dL (11.7-16.9) 12/08/17 06:00 Hct 43.9 % (35.4-49) 12/08/17 06:00 MCV 87.1 fl (80-96) 12/08/17 06:00 MCHC 33.0 g/dl (32.0-35.9) 12/08/17 06:00 RDW 12.5 % (11.9-15.9) 12/08/17 06:00 Plt Count 366 K/MM3 (134-434) 12/08/17 06:00 MPV 8.1 fl (7.5-11.1) 12/08/17 06:00 CMP Sodium 137 mmol/L (136-145) 12/08/17 06:00 Potassium 4.0 mmol/L (3.5-5.1) 12/08/17 06:00 Chloride 99 mmol/L (98-107) 12/08/17 06:00 Carbon Dioxide 33 mmol/L (21-32) H 12/08/17 06:00 Anion Gap 5 (8-16) L 12/08/17 06:00 BUN 11 mg/dL (7-18) 12/08/17 06:00 Creatinine 1.2 mg/dL (0.7-1.3) 12/08/17 06:00 Creat Clearance w eGFR > 60 (>60) 12/08/17 06:00 Random Glucose 87 mg/dL (74-106) 12/08/17 06:00 Calcium 8.8 mg/dL (8.5-10.1) 12/08/17 06:00 Total Bilirubin 0.7 mg/dL (0.2-1.0) 12/08/17 06:00 AST 33 U/L (15-37) D 12/08/17 06:00 ALT 52 U/L (12-78) 12/08/17 06:00 Alkaline Phosphatase 101 U/L (45-117) 12/08/17 06:00 Total Protein 7.5 g/dl (6.4-8.2) 12/08/17 06:00 Albumin 3.5 g/dl (3.4-5.0) 12/08/17 06:00 Microbiology 12/06/17 13:30 Blood - Peripheral Venous Blood Culture - Preliminary NO GROWTH OBTAINED AFTER 48 HOURS, INCUBATION TO CONTINUE FOR 3 DAYS. 12/06/17 13:15 Blood - Peripheral Venous Blood Culture - Preliminary NO GROWTH OBTAINED AFTER 48 HOURS, INCUBATION TO CONTINUE FOR 3 DAYS. 12/06/17 13:19 Knee - Right Gram Stain - Final 12/06/17 13:19 Knee - Right Wound Culture - Preliminary Presumptive Mrsa (Pbp2a Pos) Assessment: This is a 22 year old male with PMHx of hypothyroidism, cerebral palsy with developmental delay, who presented to the ED with two skin abscesses. Plan: 1) Right forearm abscess, right knee abscess with cellulitis, presumptive MRSA - Continue Vancomycin (12/06- ) - Per surgery, warm compresses to area with bacitracin daily. Keep area covered - Ortho consult appreciated, no surgical intervention at this time 2) Hypothyroidism - TSH 53.5, T4 1.01 - Called pharmacy and verified dosage of Synthroid 137mcg daily. Given high TSH (with tachycardia), will increase to 150mcg daily - Will need repeat TSH testing in 2 weeks 3) F/E/N: - Sodium controlled diet - Monitor electrolytes 4) Prophylaxis: - Heparin 5,000u sq tid 5) Dispo: - Requires continued inpatient care CODE STATUS: FULL CODE Visit type - Emergency Visit Emergency Visit: Yes ED Registration Date: 12/06/17 Care time: The patient presented to the Emergency Department on the above date and was hospitalized for further evaluation of their emergent condition. - New Patient This patient is new to me today: No - Critical Care Critical Care patient: No
--- NOTE | 2017-12-09 12:40 | PN ---
Progress Note (short form) - Note Progress Note: doing well alert conversant mom at bedside Vital Signs Period Temp Pulse Resp BP Sys/Hubbard Pulse Ox Last 24 Hr 97.9 F-98.8 F 77-113 18-18 129-144/76-96 97 cor-rrr lungs clear forearm abscess much improved knee abscess much improved CBC, BMP 12/08/17 06:00 12/08/17 06:00 Microbiology 12/06/17 13:19 Knee - Right Gram Stain - Final 12/06/17 13:19 Knee - Right Wound Culture - Final S Aureus 12/06/17 13:30 Blood - Peripheral Venous Blood Culture - Preliminary NO GROWTH OBTAINED AFTER 48 HOURS, INCUBATION TO CONTINUE FOR 3 DAYS. 12/06/17 13:15 Blood - Peripheral Venous Blood Culture - Preliminary NO GROWTH OBTAINED AFTER 48 HOURS, INCUBATION TO CONTINUE FOR 3 DAYS. a/p MRSA skin abscess mom reports this is the first time in a very long time doing well day #3 vancomycin plan po bactrim ds 1 po bid for 7 days explained to mom that if he gets recurrent abscesses - she should discuss MRSA decolonization with his PMD Problem List - Problems (1) Abscess Code(s): L02.91 - CUTANEOUS ABSCESS, UNSPECIFIED (2) Cerebral palsy Code(s): G80.9 - CEREBRAL PALSY, UNSPECIFIED
--- NOTE | 2017-12-09 13:20 | DS ---
Physical Examination Vital Signs: Vital Signs Temperature 98.5 F 12/09/17 06:38 Pulse Rate 77 12/09/17 06:38 Respiratory Rate 18 12/09/17 06:38 Blood Pressure 129/76 12/09/17 06:38 O2 Sat by Pulse Oximetry (%) 97 12/08/17 21:00 Labs: CBC, BMP 12/08/17 06:00 12/08/17 06:00 Discharge Summary Reason For Visit: CELLULITIS Current Active Problems Abscess (Acute) Cellulitis (Acute) Cerebral palsy (Acute) Elevated lactic acid level (Acute) Condition: Improved - Instructions Diet, Activity, Other Instructions: Please return to the ED with new, persistent, or worsening symptoms. Please follow-up with providers as indicated. Wound care: Warm compresses to the area Bacitracin ointment daily and keep the area covered Referrals: Osmani Lee [Primary Care Provider] - (Please follow-up with your primary care provider within 1 week for follow-up on your abscesses and to discuss MRSA decolonization. ) Judy Parada MD [Staff Physician] - 1 Week Disposition: HOME - Home Medications Comprehensive Discharge Medication List: Ambulatory Orders Enalapril Maleate 0 mg PO DAILY 12/06/17 Levothyroxine [Synthroid -] 0 mcg PO DAILY 12/06/17 Bacitracin - [Bacitracin Topical Ointment -] 1 applic TP BID #1 tube 12/09/17 Docusate Sodium [Colace -] 100 mg PO Q8H PRN #90 capsule 12/09/17 Enalapril Maleate [Vasotec -] 5 mg PO DAILY #30 tablet 12/09/17 Hydrochlorothiazide [Hctz -] 12.5 mg PO DAILY #30 cap 12/09/17 Levothyroxine [Synthroid -] 150 mcg PO DAILY@0700 #30 tablet 12/09/17 Polyethylene Glycol 3350 [Miralax 119 gm Btl -] 17 gm PO DAILY #1 bottle Sulfamethoxazole/Trimethoprim [Bactrim Ds -] 1 tab PO BID #14 tablet 12/09/17
[2017-12-09 15:16] VITALS: BP 142/74; PULSE 101; TEMP 98.9
== END 2017-12-09 18:55 | disposition home or self-care (01) | DRG 383 ==
LOC: JERFT 09:32 → JER 09:32 → JERBED 18:00 → J7W 12-07 16:38
PROVIDERS: ADMIT Internal Medicine; ATTEND Registered Nurse
DX: L03.115 Cellulitis of right lower limb (principal); L03.113 Cellulitis of right upper limb; E03.9 Hypothyroidism, unspecified; G80.9 Cerebral palsy, unspecified; E87.2 Acidosis; R62.50 Unspecified lack of expected normal physiological development in childhood; R00.0 Tachycardia, unspecified; I10 Essential (primary) hypertension
CPT/HCPCS: 36415; 73700-TC-RT; 74018-TC-FY; 80053; 83605; 83735; 84100; 84439; 84443; 85025; 87040; 87070; 87186; 87205; 97161-GP; 99283-25; J1644

== ENCOUNTER 2019-10-31 23:36 | Emergency (ER) | payer OTHER ==
[2019-10-31 23:53] VITALS: BMI 25.2
--- NOTE | 2019-11-01 00:30 | PDOC ---
Attending Attestation - Resident Resident Name: Rachel Holloway - ED Attending Attestation I have performed the following: I have examined & evaluated the patient, The case was reviewed & discussed with the resident, I agree w/resident's findings & plan - HPI HPI: 11/01/19 01:44 see resident hpi - Physicial Exam PE: 11/01/19 01:44 agree with resident exam - Medical Decision Making 11/01/19 01:44 24-year-old male with pain and swelling to the left hip consistent with abscess I&D performed by emergency department resident with drainage of purulent fluid Wound culture sent Will DC on Clinda with 48-hour follow-up for wound check
[2019-11-01] MEDS ORDERED: CLINDAMYCIN HCL 150 MG CAPSULE (FP) PO ONE (01:43)
--- NOTE | 2019-11-01 01:48 | PDOC ---
History of Present Illness - General Chief Complaint: Wound Stated Complaint: BOIL ON LEFT LEG Time Seen by Provider: 11/01/19 00:25 - History of Present Illness Initial Comments: 24 year old with mental delay who presents with L thigh abcess for 1 day with no apparent drainage. kasey deniex any fever but reports that he finds the abscess very painful. mother has no other compliants ROS- limitex 2/2 delay GENERAL/CONSTITUTIONAL: No fever or chills. No weakness. HEAD, EYES, EARS, NOSE AND THROAT: No sore throat. CARDIOVASCULAR: No chest pain or shortness of breath RESPIRATORY: No cough, wheezing GASTROINTESTINAL: No nausea, vomiting, diarrhea or constipation. GENITOURINARY: No dysuria, frequency, or change in urination. MUSCULOSKELETAL: No joint or muscle swelling + pain. No neck or back pain. SKIN: + abscess NEUROLOGIC: No headache, vertigo, loss of consciousness, or change in strength/ sensation. ENDOCRINE: No increased thirst. No abnormal weight change PE GENERAL: Awake, alert, and fully oriented, in no acute distress HEAD: No signs of trauma, normocephalic, atraumatic EYES: EOMI, sclera anicteric, conjunctiva clear ENT: oropharynx clear without exudates. Moist mucosa NECK: Normal ROM, supple, LUNGS: No distress, speaks full sentences, clear to auscultation bilaterally HEART: Regular rate and rhythm, normal S1 and S2, no murmurs, rubs or gallops, peripheral pulses normal and equal bilaterally. ABDOMEN: Soft, nontender, No guarding, no rebound. No masses EXTREMITIES : Normal inspection, Normal range of motion, no edema. No clubbing or cyanosis. NEUROLOGICAL: Cranial nerves II through XII grossly intact. Normal speech, normal gait, no focal sensorimotor deficits SKIN:+ L lateral thigh 2x3cm erythematius fluctuang abscess O MDM ED Course: id abscess with no complications dc eith clindamycin strict return preactuotions pcp fu Patient stable for discharge. Given follow up instructions and strict return precaution Rachel Holloway, PGY2 Emergency Medicine Past History - Past Medical History Allergies/Adverse Reactions: Allergies Allergy/AdvReac Type Severity Reaction Status Date / Time No Known Allergies Allergy Verified 10/31/19 23:53 Home Medications: Ambulatory Orders Docusate Sodium [Colace -] 100 mg PO Q8H PRN #90 capsule 12/09/17 Enalapril Maleate [Vasotec -] 5 mg PO DAILY #30 tablet 12/09/17 Hydrochlorothiazide [Hctz -] 12.5 mg PO DAILY #30 cap 12/09/17 Levothyroxine [Synthroid -] 150 mcg PO DAILY@0700 #30 tablet 12/09/17 Polyethylene Glycol 3350 [Miralax 119 gm Btl -] 17 gm PO DAILY #1 bottle Pantoprazole Sodium [Protonix -] 20 mg PO DAILY #30 tablet.ec 11/14/19 Polyethylene Glycol 3350 [Miralax 119 gm Btl -] 17 gm PO BID bottle 11/14/19 Simethicone [Mylicon -] 80 mg PO PRN PRN #30 tab.chew 11/14/19 Vancomycin HCl 1,250 mg IVPB DAILY 2 Days #2 vial 11/14/19 COPD: No Hypercholesterolemia: Yes Thyroid Disease: Yes (HYPER) Other medical history: CP - Psycho Social/Smoking Cessation Hx Smoking History: Never smoked Have you smoked in the past 12 months: No Information on smoking cessation initiated: No Hx Alcohol Use: No Drug/Substance Use Hx: No Substance Use Type: None *Physical Exam - Vital Signs Last Vital Signs Temp Pulse Resp BP Pulse Ox 98.6 F 156 H 22 H 191/134 H 100 10/31/19 23:51 10/31/19 23:51 10/31/19 23:51 10/31/19 23:51 10/31/19 23:51 ED Treatment Course - LABORATORY CBC & Chemistry Diagram: 11/01/19 01:32 11/01/19 01:32 Discharge - Discharge Information Problems reviewed: Yes Clinical Impression/Diagnosis: Abscess Condition: Stable Disposition: HOME - Admission No - Follow up/Referral - Patient Discharge Instructions Patient Printed Discharge Instructions: DI for Skin Abscess Additional Instructions: You were seen in the ED for complaints of L leg abscess In the ED you were evaluated and had an incision and drainage of the wound Your labs were within normal There does not appear to be an acute need for immediate hospitalization. You are advised to follow up with your Primary Care Physician within 1 week. You were given a prescription for antibiotics that should be taken as prescribed Return to the ER or your Primary Doctor in 48 hours for wound check Return to the ED immediately if you experience worsening swelling, rash, drainage, fever or any other concerning symptoms. - Post Discharge Activity
[2019-11-01] MEDS ORDERED: CLINDAMYCIN HCL 150 MG CAPSULE (FP) ONE (01:54)
[2019-11-01 01:57] LABS: BASO % 0.2 % (0-2.0); EOS % 0.4 % (0-4.5); HEMATOCRIT 51.6 % (35.4-49); HEMOGLOBIN 17.5 GM/dL (11.7-16.9); LYMPH % 18.6 % (8-40); MCH 30.3 pg (25.7-33.7); MCHC 33.8 g/dl (32.0-35.9); MEAN CELL VOLUME 89.7 fl (80-96); MEAN PLT VOLUME 8.5 fl (7.5-11.1); MONO % 24.8 % (3.8-10.2); PLATELET COUNT 240 K/MM3 (134-434); RBC 5.76 M/mm3 (4.00-5.60); RDW 12.9 % (11.9-15.9); WHITE BLOOD COUNT 9.9 K/mm3 (4.0-10.0)
[2019-11-01 02:25] LABS: ALBUMIN 4.2 g/dl (3.4-5.0); BILIRUBIN,TOTAL 1.1 mg/dL (0.2-1); BLOOD UREA NITROGEN 17.9 mg/dL (7-18); CALCIUM 10.1 mg/dL (8.5-10.1); CREATININE 1.3 mg/dL (0.55-1.3); POTASSIUM 3.5 mmol/L (3.5-5.1); TOT PROT 8.9 g/dl (6.4-8.2)
[2019-11-01 02:46] VITALS: BP 101/61; PULSE 79; TEMP 98.1
[2019-11-01 10:27] LABS: ANISOCYTOSIS 0; MACROCYTOSIS 0; PLATELET ESTIMATE NORMAL
== END 2019-11-01 02:57 | disposition home or self-care (01) ==
LOC: JER 23:36
PROC: 0J9M0ZZ Drainage of Left Upper Leg Subcutaneous Tissue and Fascia, Open Approach (ICD-10-PCS; principal; 2019-10-31)
DX: L02.416 Cutaneous abscess of left lower limb (principal)
CPT/HCPCS: 36415; 80053; 85025; 87040; 87186; 99282-25

== ENCOUNTER 2019-11-03 20:52 | Inpatient (IN) | payer OTHER ==
[2019-11-03] MEDS ORDERED: VANCOMYCIN 1 GM in D5W (PRE-DOCKED) 1,000 MG/250 ML IVPB ONE (23:32)
--- NOTE | 2019-11-03 23:32 | PDOC ---
History of Present Illness <Tami Smith - Last Filed: 11/04/19 03:31> - General History Source: Patient, Care Provider, Old Records Exam Limitations: No Limitations - History of Present Illness Initial Comments: HPI: 24 y/o male presenting to [facility] ER for evaluation of pt was called back by this department for positive blood culture findings. One aerobic bottle grew gram positive cocci in clusters. No catalase status or speciation available tonight. Pt was seen in this department on 31 Oct 2019 for abscess to his left thigh. I& D was performed and the pt was discharged on Clindamycin. Pt's caregiver at bedside reports the pt has not had a fever in several days. The wound on his leg has continued to express a small amount of purulence, but the overlying erythema has decreased in size. Caregiver states the pt has a h/o of smaller lesions, and that multiple other patients in the [place] [facility] have developed similar lesions. Medical Hx: - Cerebral palsy Review of Systems: In addition to that documented in the HPI above, the additional ROS was obtained : Constitutional- Denies fevers or chills ENMT- Denies sore throat CV- Denies chest pain Resp- Denies SOB GI- Denies vomiting or diarrhea - Denies dysuria, hematuria, or urinary frequency Physical Examination: Vital signs and nursing notes reviewed. Constitutional- Nontoxic adult male in no acute distress or obvious discomfort. Found sitting in home wheelchair with caregiver at bedside. Head- Normocephalic. No obvious external signs of trauma. Cardiovascular / Chest- Tachycardic rate with regular rhythm. No murmur, rubs, clicks, or gallops. Peripheral pulses- radial pulses full. Respiratory- Breathing unlabored. Equal chest rise and fall. Clear to auscultation bilaterally. No stridor, no wheezing, no rhonchi. Gastrointestinal- abdomen is soft, non-tender, non-distended. Neuro- Alert and oriented x4. Moving all four extremities spontaneously. Skin- Approx. 5cm circular patch of erythema with central abscess and induration. Small amount of white purulent material. No sanguineous drainage. Erythema does not extend to previously drawn outline harris. Psych- Affect- appropriate. Mood- normal. Speech was non-labored, non- pressured. MDM: 24 y/o male presenting with single positive blood culture. Febrile at triage; given acetaminophen. Vitals remarkable for tachycardia without hypotension. Physical exam as described above. Lactic acid is not elevated. No leukocytosis. Low suspicion for bacteremia, rather suspect the pt has a MRSA skin infection. However, will treat the pt with Vancomycin and LR IVFB. Will admit pt to med/ surg while awaiting further culture data. 04 Nov 2019 04:05 AM In person discussion with Dr. Keating. Verbally appraised of the pts HPI, ED course, and current plan of management. Will admit pt to med /surg. Capo Hilliard M.D., PGY2 Emergency Medicine Resident <Capo Hilliard - Last Filed: 11/04/19 07:01> - General Chief Complaint: Revisit, Lab Variance Stated Complaint: BLOOD WORK Time Seen by Provider: 11/03/19 22:47 Attending Attestation - Resident Resident Name: Capo Hilliard - ED Attending Attestation I have performed the following: I have examined & evaluated the patient, The case was reviewed & discussed with the resident, I agree w/resident's findings & plan - HPI HPI: 11/04/19 03:31 Pt comes from a [place] [facility]; called back because he has a +blood cx. He has gram pos cocci in clusters Catalase + vs - not back yet. Pt will be admitted as he is tachy and febrile. - Physicial Exam PE: 11/04/19 03:32 Agree with resident exam Pt has clear lungs and heart S1S2 very tachy Pt's I+D wound looks like it is improving. - Medical Decision Making 11/04/19 03:33 Rx with IV vanco and admit for observation. <Tami Smith - Last Filed: 11/04/19 03:31> Past History <Tami Smith - Last Filed: 11/04/19 03:31> - Past Medical History COPD: No Hypercholesterolemia: Yes Thyroid Disease: Yes (HYPER) - Psycho Social/Smoking Cessation Hx Smoking History: Never smoked Have you smoked in the past 12 months: No Hx Alcohol Use: No Drug/Substance Use Hx: No Substance Use Type: None <Capo Hilliard - Last Filed: 11/04/19 07:01> - Past Medical History Allergies/Adverse Reactions: Allergies Allergy/AdvReac Type Severity Reaction Status Date / Time No Known Allergies Allergy Verified 10/31/19 23:53 Home Medications: Ambulatory Orders Enalapril Maleate 0 mg PO DAILY 12/06/17 Levothyroxine [Synthroid -] 0 mcg PO DAILY 12/06/17 Bacitracin - [Bacitracin Topical Ointment -] 1 applic TP BID #1 tube 12/09/17 Docusate Sodium [Colace -] 100 mg PO Q8H PRN #90 capsule 12/09/17 Enalapril Maleate [Vasotec -] 5 mg PO DAILY #30 tablet 12/09/17 Hydrochlorothiazide [Hctz -] 12.5 mg PO DAILY #30 cap 12/09/17 Levothyroxine [Synthroid -] 150 mcg PO DAILY@0700 #30 tablet 12/09/17 Polyethylene Glycol 3350 [Miralax 119 gm Btl -] 17 gm PO DAILY #1 bottle Sulfamethoxazole/Trimethoprim [Bactrim Ds -] 1 tab PO BID #14 tablet 12/09/17 Clindamycin [Cleocin -] 450 mg PO TID #63 capsule 11/01/19 *Physical Exam - Vital Signs Last Vital Signs Temp Pulse Resp BP Pulse Ox 100.6 F H 126 H 19 94/74 98 11/03/19 23:59 11/03/19 21:00 11/03/19 21:00 11/03/19 21:00 11/03/19 21:00 <Tami Smith - Last Filed: 11/04/19 03:31> - Vital Signs Last Vital Signs Temp Pulse Resp BP Pulse Ox 97.9 F 126 H 19 94/74 98 11/03/19 21:00 11/03/19 21:00 11/03/19 21:00 11/03/19 21:00 11/03/19 21:00 <Capo Hilliard - Last Filed: 11/04/19 07:01> ED Treatment Course - LABORATORY CBC & Chemistry Diagram: 11/04/19 01:30 11/04/19 01:30 <Tami Smith - Last Filed: 11/04/19 03:31> - LABORATORY CBC & Chemistry Diagram: 11/04/19 01:30 11/04/19 01:30 <Capo Hilliard - Last Filed: 11/04/19 07:01> Medical Decision Making - Medical Decision Making 11/04/19 00:07 CXR: normal chest; clear lung friedman <Tami Smith - Last Filed: 11/04/19 03:31> Discharge <Tami Smith - Last Filed: 11/04/19 03:31> - Discharge Information Problems reviewed: Yes - Admission Yes <Capo Hilliard - Last Filed: 11/04/19 07:01> - Discharge Information Clinical Impression/Diagnosis: Gram-positive cocci in clusters, Tachycardia Fever Qualifiers: Fever type: unspecified Qualified Code(s): R50.9 - Fever, unspecified Condition: Stable
[2019-11-03] MEDS ORDERED: LACTATED RINGERS SOLUTION 1000 ML INFUS.BAG IV ONE (23:39)
[2019-11-03] MEDS ORDERED: ACETAMINOPHEN 1000 MG/100 ML VIAL (NON FORMULARY) IVPB ONE (23:39)
[2019-11-04] MEDS ORDERED: VANCOMYCIN 1 GRAM (PRE-DOCKED) 1,000 MG/250 ML BAG IVPB ONE ×2 (01:01→12:47)
[2019-11-04] MEDS ORDERED: ACETAMINOPHEN INJECTION 100 ML IVPB ONE (01:01)
[2019-11-04 02:20] LABS: VENOUS PC02 46.1 mmHg (38-52); VENOUS PH 7.43 (7.31-7.41)
[2019-11-04 02:21] LABS: VENOUS PO2 < 49 mmHg (28-48)
[2019-11-04 02:32] LABS: BASO % 0.3 % (0-2.0); EOS % 2.3 % (0-4.5); HEMOGLOBIN 16.6 GM/dL (11.7-16.9); LYMPH % 15.6 % (8-40); MCH 30.2 pg (25.7-33.7); MEAN CELL VOLUME 88.9 fl (80-96); MEAN PLT VOLUME 8.6 fl (7.5-11.1); MONO % 14.2 % (3.8-10.2); NEUT % 67.6 % (42.8-82.8); PLATELET COUNT 352 K/MM3 (134-434); RDW 12.5 % (11.9-15.9); WHITE BLOOD COUNT 8.2 K/mm3 (4.0-10.0)
[2019-11-04 02:56] LABS: ALBUMIN 4.2 g/dl (3.4-5.0); BILIRUBIN,TOTAL 0.4 mg/dL (0.2-1); BLOOD UREA NITROGEN 18.8 mg/dL (7-18); CALCIUM 9.8 mg/dL (8.5-10.1); CREATININE 1.2 mg/dL (0.55-1.3); POTASSIUM 3.2 mmol/L (3.5-5.1); TOT PROT 8.9 g/dl (6.4-8.2)
[2019-11-04] MEDS ORDERED: IBUPROFEN 600 MG TABLET (FP) PO ONE ×2 (03:02→03:29)
[2019-11-04] MEDS ORDERED: LACTATED RINGERS SOLUTION 1000 ML INFUS.BAG IV ONE (03:02)
[2019-11-04] MEDS ORDERED: ONDANSETRON 4 MG/2 ML VIAL IVPUSH ONE (04:07)
[2019-11-04] MEDS ORDERED: ONDANSETRON 4 MG/2 ML VIAL ONE (04:13)
[2019-11-04] MEDS ORDERED: POTASSIUM CHLORIDE ORAL LIQUID 20 MEQ/15 ML PO ONE (04:48)
[2019-11-04] MEDS ORDERED: DOCUSATE SODIUM 100 MG CAPSULE (FP) PO PRN (04:51)
--- NOTE | 2019-11-04 04:57 | HP ---
CHIEF COMPLAINT: Gram positive bacteremia PCP: Zahraa Singh HISTORY OF PRESENT ILLNESS: 24-year-old male with cerebral palsy who lives in long term was here on 2019 and underwent left thigh abscess I&D and sent home on clindamycin, subsequently recalled to hospital after 1 of 2 blood cultures from 11/01 was found to be positive for gram-positive cocci in clusters. Culture from I&D from left thigh abscess was growing MRSA. Patient was found to have fever and was tachycardic upon initial presentation. ER course was notable for: (1)Blood cultures (2)Vancomycin (3) Recent Travel:No PAST MEDICAL HISTORY:Cerebral palsy, hypertension, hypothyroidism PAST SURGICAL HISTORY:No Social History: Smoking:no Alcohol:no Drugs: no Allergies No Known Allergies Allergy (Verified 10/31/19 23:53) HOME MEDICATIONS: Home Medications Medication Instructions Recorded Enalapril Maleate 0 mg PO DAILY 12/06/17 Levothyroxine [Synthroid -] 0 mcg PO DAILY 12/06/17 Bacitracin - [Bacitracin Topical 1 applic TP BID #1 tube 12/09/17 Ointment -] Docusate Sodium [Colace -] 100 mg PO Q8H PRN #90 capsule 12/09/17 Enalapril Maleate [Vasotec -] 5 mg PO DAILY #30 tablet 12/09/17 Hydrochlorothiazide [Hctz -] 12.5 mg PO DAILY #30 cap 12/09/17 Levothyroxine [Synthroid -] 150 mcg PO DAILY@0700 #30 tablet 12/09/17 Polyethylene Glycol 3350 [Miralax 17 gm PO DAILY #1 bottle 12/09/17 119 gm Btl -] Sulfamethoxazole/Trimethoprim 1 tab PO BID #14 tablet 12/09/17 [Bactrim Ds -] Clindamycin [Cleocin -] 450 mg PO TID #63 capsule 11/01/19 REVIEW OF SYSTEMS- Unable to effectively obtain as patient has cerebral palsy and is not very reliable for ROS PHYSICAL EXAMINATION Vital Signs - 24 hr 11/03/19 11/03/19 11/04/19 21:00 23:59 02:33 Temperature 97.9 F 100.6 F H 98.4 F Pulse Rate 126 H Pulse Rate [ 133 H Right Radial] Respiratory 19 20 Rate Blood Pressure 94/74 Blood Pressure 164/102 H [Left Arm] O2 Sat by Pulse 98 100 Oximetry (%) GENERAL: Awake, alert, and fully oriented, in no acute distress. HEAD: Normal with no signs of trauma. EYES: Pupils equal, round and reactive to light, extraocular movements intact, sclera anicteric, conjunctiva clear. No lid lag. EARS, NOSE, THROAT: Ears normal, nares patent, oropharynx clear without exudates. Moist mucous membranes. NECK: Normal range of motion, supple without lymphadenopathy, JVD, or masses. LUNGS: Breath sounds equal, clear to auscultation bilaterally. No wheezes, and no crackles. No accessory muscle use. HEART: Regular rate and rhythm, normal S1 and S2 without murmur, rub or gallop. ABDOMEN: Soft, nontender, not distended, normoactive bowel sounds, no guarding, no rebound, no masses. MUSCULOSKELETAL: Normal range of motion at all joints. No bony deformities or tenderness. No CVA tenderness. UPPER EXTREMITIES: 2+ pulses, warm, well-perfused. No cyanosis. No clubbing. No peripheral edema. LOWER EXTREMITIES:Proximal left lateral thigh with erythema status post I&D. No tenderness to palpation NEUROLOGICAL: Cranial nerves II-XII intact. Normal speech. Unable to ambulate PSYCHIATRIC: Somewhat cooperative suspect developmental delay SKIN: Warm, dry, normal turgor, no rashes or lesions noted, normal capillary refill. Laboratory Results - last 24 hr 11/04/19 11/04/19 11/04/19 01:30 01:30 01:30 WBC 8.2 RBC 5.50 Hgb 16.6 Hct 49.0 MCV 88.9 MCH 30.2 MCHC 34.0 RDW 12.5 Plt Count 352 D MPV 8.6 Absolute Neuts (auto) 5.6 Neutrophils % 67.6 D Lymphocytes % 15.6 Monocytes % 14.2 H Eosinophils % 2.3 D Basophils % 0.3 Nucleated RBC % 0 VBG pH POC VBG pCO2 POC VBG pO2 VBG HCO3 VBG O2 Sat (Abdullahi) VBG Base Excess Sodium 135 L Potassium 3.2 L Chloride 96 L Carbon Dioxide 29 Anion Gap 10 BUN 18.8 H Creatinine 1.2 Est GFR (CKD-EPI)AfAm 98.19 Est GFR (CKD-EPI)NonAf 84.72 Random Glucose 119 H Lactic Acid 1.3 Calcium 9.8 Total Bilirubin 0.4 AST 51 H ALT 61 Alkaline Phosphatase 130 H Total Protein 8.9 H Albumin 4.2 11/04/19 01:30 WBC RBC Hgb Hct MCV MCH MCHC RDW Plt Count MPV Absolute Neuts (auto) Neutrophils % Lymphocytes % Monocytes % Eosinophils % Basophils % Nucleated RBC % VBG pH 7.43 H POC VBG pCO2 46.1 POC VBG pO2 < 49 H VBG HCO3 30.2 H VBG O2 Sat (Abdullahi) 78.8 VBG Base Excess 5.3 H Sodium Potassium Chloride Carbon Dioxide Anion Gap BUN Creatinine Est GFR (CKD-EPI)AfAm Est GFR (CKD-EPI)NonAf Random Glucose Lactic Acid Calcium Total Bilirubin AST ALT Alkaline Phosphatase Total Protein Albumin Imaging studies reviewed ASSESSMENT/PLAN: Sepsis secondary to left thigh abscess status post I&D with gram-positive cocci in clusters in 1 bottle from 11/01 blood cultures. Suspect probable MRSA. Admit to [facility] Lactic acid Vancomycin 1 g every 12 Chest x-ray Transthoracic echo to rule out cardiac vegetations Patient needs isolation room with contact precautions Blood cultures must be repeated to ensure clearance ESR and CRP Infectious disease consultation #Hypothyroidism Continue with home dose levothyroxinemust confirm dose with pharmacy during the day Send TSH #Hypertension Continue home dose enalapril, hydrochlorothiazide #DVT prophylaxisheparin subcutaneously Visit type - Emergency Visit Emergency Visit: Yes ED Registration Date: 11/04/19 Care time: The patient presented to the Emergency Department on the above date and was hospitalized for further evaluation of their emergent condition. - New Patient This patient is new to me today: Yes Date on this admission: 11/04/19 - Critical Care Critical Care patient: No
[2019-11-04] MEDS: SODIUM CHLORIDE 1,000 ML IV SCH ×2 (06:53→21:42)
[2019-11-04] MEDS ORDERED: HEPARIN NA (PORCINE) 5,000 UNITS/ML 1ML VIAL ONE (07:47)
[2019-11-04] MEDS: KCL 10 MEQ IVPB 10 MEQ/100 ML INFUS.BAG IVPB SCH ×3 (07:56→10:07)
[2019-11-04] MEDS: HEPARIN NA (PORCINE) 5,000 UNITS/ML 1ML VIAL SQ SCH ×3 (07:56→21:42)
[2019-11-04] MEDS ORDERED: KCL 10 MEQ IVPB 10 MEQ/100 ML INFUS.BAG IVPB ONE ×2 (08:57→10:03)
[2019-11-04] MEDS: LEVOTHYROXINE NA 150 MCG TABLET PO SCH (09:39)
[2019-11-04] MEDS: ENALAPRIL MALEATE 5 MG TABLET (FP) PO SCH (09:39)
[2019-11-04] MEDS: HYDROCHLOROTHIAZIDE 12.5 MG CAPSULE (FP) PO SCH (09:39)
[2019-11-04] MEDS ORDERED: LORazepam 2 MG/ML SDV VIAL ONE (11:56)
[2019-11-04] MEDS: LORazepam 2 MG/ML SDV VIAL IVPUSH PRN ×2 (12:05→18:41)
[2019-11-04] MEDS: VANCOMYCIN 1 GRAM (PRE-DOCKED) 1,000 MG/250 ML BAG IVPB SCH (13:01)
--- NOTE | 2019-11-04 13:04 | EKG ---
Test Reason : Blood Pressure : / mmHG Vent. Rate : 145 BPM Atrial Rate : 145 BPM P-R Int : 138 ms QRS Dur : 080 ms QT Int : 258 ms P-R-T Axes : 065 013 043 degrees QTc Int : 400 ms SINUS TACHYCARDIA POSSIBLE LEFT ATRIAL ENLARGEMENT BORDERLINE ECG WHEN COMPARED WITH ECG OF 03-NOV-2010 22:50, PREVIOUS ECG IS PRESENT Confirmed by ZABRINA ALDRIDGE MD ([id number]) on 11/04/2019 1:04:30 PM Referred By: Confirmed By:ZABRINA ALDRIDGE MD
--- NOTE | 2019-11-04 16:35 | PN ---
Progress Note, Physician Chief Complaint: positive blood cultures History of Present Illness: seen and examined in ER with stepfather present. patient is agitated, crying for his mother, wants to go home. - Current Medication List Current Medications: Active Medications Acetaminophen (Ofirmev Injection -) 1,000 mg IVPB Q6H PRN PRN Reason: PAIN LEVEL 1-5 Docusate Sodium (Colace -) 100 mg PO Q8H PRN PRN Reason: CONSTIPATION Enalapril Maleate (Vasotec -) 5 mg PO DAILY [facility] Last Admin: 11/04/19 09:39 Dose: 5 mg Heparin Sodium (Porcine) (Heparin -) 5,000 unit SQ TID [facility] Last Admin: 11/04/19 14:12 Dose: 5,000 unit Hydrochlorothiazide (Hctz -) 12.5 mg PO DAILY [facility] Last Admin: 11/04/19 09:39 Dose: 12.5 mg Sodium Chloride (Normal Saline -) 1,000 mls @ 75 mls/hr IV ASDIR [facility] Last Admin: 11/04/19 06:53 Dose: 75 mls/hr Vancomycin HCl (Vancomycin (Pre-Docked)) 1,000 mg in 250 mls @ 166.667 mls/hr IVPB Q12H JUAN; Protocol Stop: 11/05/19 02:29 Last Admin: 11/04/19 13:01 Dose: 166.667 mls/hr Vancomycin HCl (Vancomycin (Pre-Docked)) 1,000 mg in 250 mls @ 166.667 mls/hr IVPB Q12H [facility]; Protocol Levothyroxine Sodium (Synthroid -) 150 mcg PO DAILY@0700 [facility] Last Admin: 11/04/19 09:39 Dose: 150 mcg Lorazepam (Ativan Injection -) 0.5 mg IVPUSH Q6H PRN PRN Reason: ANXIETY Last Admin: 11/04/19 12:05 Dose: 0.5 mg - Objective Vital Signs: Vital Signs Temperature 98.2 F 11/04/19 11:15 Pulse Rate 126 H 11/04/19 15:05 Respiratory Rate 20 11/04/19 15:05 Blood Pressure 146/94 11/04/19 15:05 O2 Sat by Pulse Oximetry (%) 98 11/04/19 15:05 Constitutional: Yes: Anxious, Other (MR) Cardiovascular: Yes: Tachycardia Respiratory: Yes: WNL, Regular, CTA Bilaterally Gastrointestinal: Yes: WNL, Normal Bowel Sounds, Soft Musculoskeletal: Yes: WNL Extremities: Yes: Other (left hip abscess, quarter sized, no drainage, dry) Edema: No Peripheral Pulses WNL: Yes Labs: CBC, BMP 11/04/19 01:30 11/04/19 01:30 Problem List - Problems (1) Fever Code(s): R50.9 - FEVER, UNSPECIFIED Qualifiers: Fever type: unspecified Qualified Code(s): R50.9 - Fever, unspecified (2) Gram-positive cocci in clusters Code(s): R68.89 - OTHER GENERAL SYMPTOMS AND SIGNS (3) Tachycardia Code(s): R00.0 - TACHYCARDIA, UNSPECIFIED (4) Abscess Code(s): L02.91 - CUTANEOUS ABSCESS, UNSPECIFIED (5) Cellulitis Code(s): L03.90 - CELLULITIS, UNSPECIFIED (6) Cerebral palsy Code(s): G80.9 - CEREBRAL PALSY, UNSPECIFIED (7) Elevated lactic acid level Code(s): R79.89 - OTHER SPECIFIED ABNORMAL FINDINGS OF BLOOD CHEMISTRY Assessment/Plan Assessment: Sepsis MRSA bacteremia Left hip abscess HTN Hypothyroidism Cerebral Palsy Plan: blood cx + MRSA IV vanco 2decho in AM repeat blood cultures ID eval pain control anxiolytics cw BP meds cw synthroid
[2019-11-04] MEDS: ACETAMINOPHEN 1000 MG/100 ML VIAL (NON FORMULARY) IVPB PRN (21:41)
[2019-11-04] MEDS ORDERED: amLODIPine BESYLATE 5 MG TABLET (FP) PO ONE (22:00)
[2019-11-05] MEDS ORDERED: PANTOPRAZOLE SODIUM 40 MG VIAL IVPUSH ONE (00:19)
[2019-11-05] MEDS: LORazepam 2 MG/ML SDV VIAL IVPUSH PRN ×2 (00:27→18:36)
[2019-11-05] MEDS: ONDANSETRON 4 MG/2 ML VIAL IVPUSH PRN (00:27)
[2019-11-05] MEDS: VANCOMYCIN 1 GRAM (PRE-DOCKED) 1,000 MG/250 ML BAG IVPB SCH (02:28)
[2019-11-05] MEDS ORDERED: PT OWN MED DRAWER 7, Y5N ONE ×3 (04:49→15:25)
[2019-11-05 04:52] LABS: PH,URINE 7.5 (5.0-8.0); URINE APPEARANCE Clear; URINE BILIRUBIN Negative (NEGATIVE); URINE COLOR Yellow; URINE GLUCOSE (UA) Negative (NEGATIVE); URINE KETONE Negative (NEGATIVE); URINE LEUK ESTERASE Negative (NEGATIVE); URINE NITRITE Negative (NEGATIVE); URINE PROTEIN 2+ (NEGATIVE)
[2019-11-05 06:09] LABS: URINE RBC 2 /hpf (0-4)
[2019-11-05 06:10] LABS: HYALINE CASTS 5 /lpf (0-8)
[2019-11-05] MEDS: SODIUM CHLORIDE 1,000 ML IV SCH ×2 (06:14→15:34)
[2019-11-05] MEDS: HEPARIN NA (PORCINE) 5,000 UNITS/ML 1ML VIAL SQ SCH (06:15)
[2019-11-05] MEDS: LEVOTHYROXINE NA 150 MCG TABLET PO SCH (06:22)
[2019-11-05 07:46] LABS: HEMATOCRIT 45.8 % (35.4-49); HEMOGLOBIN 15.9 GM/dL (11.7-16.9); MCH 30.7 pg (25.7-33.7); MCHC 34.8 g/dl (32.0-35.9); MEAN CELL VOLUME 88.4 fl (80-96); PLATELET COUNT 309 K/MM3 (134-434); RBC 5.18 M/mm3 (4.00-5.60); RDW 12.5 % (11.9-15.9); WHITE BLOOD COUNT 7.6 K/mm3 (4.0-10.0)
[2019-11-05 08:46] LABS: BLOOD UREA NITROGEN 13.4 mg/dL (7-18); CALCIUM 9.2 mg/dL (8.5-10.1); CREATININE 1.3 mg/dL (0.55-1.3); MAGNESIUM 1.7 mg/dL (1.8-2.4)
[2019-11-05] MEDS: ENALAPRIL MALEATE 5 MG TABLET (FP) PO SCH (09:22)
[2019-11-05] MEDS: HYDROCHLOROTHIAZIDE 12.5 MG CAPSULE (FP) PO SCH (09:22)
--- NOTE | 2019-11-05 09:38 | PN ---
Physical Exam: SUBJECTIVE: Patient seen and examined. He complains of epigastric abdominal pain. Overnight he was noted to have bloody emesis. OBJECTIVE: Vital Signs Period Temp Pulse Resp BP Sys/Hubbard Pulse Ox Last 24 Hr 98.2 F-98.8 F 107-126 20-20 146-180/94-130 98-100 GENERAL: The patient is awake, alert, in no acute distress. LUNGS: Breath sounds equal, clear to auscultation bilaterally, no wheezes, no crackles, no accessory muscle use. HEART: Regular rate and rhythm, S1, S2 without murmur, rub or gallop. ABDOMEN: Soft, (+) epigastric tenderness, nondistended, normoactive bowel sounds , no guarding, no rebound, no hepatosplenomegaly, no masses. EXTREMITIES: 2+ pulses, warm, well-perfused, no edema. Laboratory Results - last 24 hr 11/04/19 11/04/19 11/05/19 06:55 21:41 01:00 WBC RBC Hgb Hct MCV MCH MCHC RDW Plt Count MPV ESR 34 H Sodium Potassium Chloride Carbon Dioxide Anion Gap BUN Creatinine Est GFR (CKD-EPI)AfAm Est GFR (CKD-EPI)NonAf POC Glucometer 110 Random Glucose Lactic Acid 1.2 Calcium Magnesium Urine Color Urine Appearance Urine pH Ur Specific [place] Urine Protein Urine Glucose (UA) Urine Ketones Urine Blood Urine Nitrite Urine Bilirubin Urine Urobilinogen Ur Leukocyte Esterase Urine RBC (Auto) Urine Casts (Auto) 11/05/19 11/05/19 11/05/19 03:40 06:23 06:23 WBC 7.6 RBC 5.18 Hgb 15.9 Hct 45.8 MCV 88.4 MCH 30.7 MCHC 34.8 RDW 12.5 Plt Count 309 MPV 8.0 ESR Sodium 138 Potassium 4.0 Chloride 104 Carbon Dioxide 26 Anion Gap 9 BUN 13.4 Creatinine 1.3 Est GFR (CKD-EPI)AfAm 89.14 Est GFR (CKD-EPI)NonAf 76.91 POC Glucometer Random Glucose 99 Lactic Acid Calcium 9.2 Magnesium 1.7 L Urine Color Yellow Urine Appearance Clear Urine pH 7.5 Ur Specific [place] 1.020 Urine Protein 2+ H Urine Glucose (UA) Negative Urine Ketones Negative Urine Blood Negative Urine Nitrite Negative Urine Bilirubin Negative Urine Urobilinogen 2.0 Ur Leukocyte Esterase Negative Urine RBC (Auto) 2 Urine Casts (Auto) 5 Active Medications Generic Name Dose Route Start Last Admin Trade Name Freq PRN Reason Stop Dose Admin Acetaminophen 1,000 mg 11/04/19 12:12 11/04/19 21:41 Ofirmev Injection - IVPB 1,000 mg Q6H PRN Administration PAIN LEVEL 1-5 Docusate Sodium 100 mg 11/04/19 04:51 Colace - PO Q8H PRN CONSTIPATION Enalapril Maleate 5 mg 11/04/19 10:00 11/05/19 09:22 Vasotec - PO 5 mg DAILY JUAN Administration Hydrochlorothiazide 12.5 mg 11/04/19 10:00 11/05/19 09:22 Hctz - PO 12.5 mg DAILY JUAN Administration Sodium Chloride 1,000 mls @ 75 mls/hr 11/04/19 04:45 11/05/19 06:14 Normal Saline - IV 75 mls/hr ASDIR [facility]UAN Administration Vancomycin HCl 1,000 mg in 250 mls @ 166.667 mls/hr 11/05/19 13:00 Vancomycin (Pre-Docked) IVPB Q12H [facility]UAN Protocol Piperacillin Sod/Tazobactam 50 mls @ 100 mls/hr 11/05/19 21:45 Sod 3.375 gm/ Dextrose IVPB Q8H-IV [facility]UAN Levothyroxine Sodium 150 mcg 11/04/19 07:00 11/05/19 06:22 Synthroid - PO 150 mcg DAILY@0700 [facility]UAN Administration Lorazepam 0.5 mg 11/04/19 11:41 11/05/19 00:27 Ativan Injection - IVPUSH 0.5 mg Q6H PRN Administration ANXIETY Ondansetron HCl 4 mg 11/04/19 18:09 11/05/19 00:27 Zofran Injection IVPUSH 4 mg Q8H PRN Administration NAUSEA ASSESSMENT/PLAN: This is a 24 year old man with a history of HTN, hypothyroidism, cerebral palsy who underwent I&D of left thigh abscess on 11/01 and was called to return because of a positive blood culture. 1. Sepsis (tachypnea, tachycardia) secondary to MRSA bacteremia from left thigh abscess - Continue Zosyn, vancomycin - ID consult 2. Epigastric pain with hematemesis - NPO - Protonix IV - Monitor hemoglobin - GI consult 3. HTN - Continue Vasotec, HCTZ 4. Hypothyroidism - Continue Synthroid 5. Cerebral palsy Visit type - Emergency Visit Emergency Visit: Yes ED Registration Date: 11/04/19 Care time: The patient presented to the Emergency Department on the above date and was hospitalized for further evaluation of their emergent condition. - New Patient This patient is new to me today: Yes Date on this admission: 11/05/19 - Critical Care Critical Care patient: No - Discharge Referral Referred to [facility] Med P.C.: No
[2019-11-05] MEDS ORDERED: PANTOPRAZOLE SODIUM 40 MG VIAL IVPUSH SCH (10:00)
[2019-11-05] MEDS ORDERED: VANCOMYCIN 1 GRAM (PRE-DOCKED) 1,000 MG/250 ML BAG IVPB SCH (13:00)
--- NOTE | 2019-11-05 13:16 | CON.ID ---
Consult Consult Specialty:: infectious diseases Referred by:: Reason for Consultation:: gm positive bacteremia. abscess - History of Present Illness Chief Complaint: gm positive bactermia History of Present Illness: 24-year-old male with cerebral palsy who lives in snf was here on 2019 and underwent left thigh abscess I&D and sent home on clindamycin, subsequently recalled to hospital after 1 of 2 blood cultures from 11/01 was found to be positive for gram-positive cocci in clusters. Culture from I&D from left thigh abscess was growing MRSA. Patient was found to have fever and was tachycardic upon initial presentation. 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) Endocrine: Yes: Hypothyroidism - Alcohol/Substance Use Hx Alcohol Use: No - Smoking History Smoking history: Never smoked Have you smoked in the past 12 months: No - Social History Usual Living Arrangement: With Parent ADL: Family Assistance History of Recent Travel: No Home Medications - Allergies Allergies/Adverse Reactions: Allergies Allergy/AdvReac Type Severity Reaction Status Date / Time No Known Allergies Allergy Verified 10/31/19 23:53 - Home Medications Home Medications: Ambulatory Orders Bacitracin - [Bacitracin Topical Ointment -] 1 applic TP BID #1 tube 12/09/17 Docusate Sodium [Colace -] 100 mg PO Q8H PRN #90 capsule 12/09/17 Enalapril Maleate [Vasotec -] 5 mg PO DAILY #30 tablet 12/09/17 Hydrochlorothiazide [Hctz -] 12.5 mg PO DAILY #30 cap 12/09/17 Levothyroxine [Synthroid -] 150 mcg PO DAILY@0700 #30 tablet 12/09/17 Polyethylene Glycol 3350 [Miralax 119 gm Btl -] 17 gm PO DAILY #1 bottle Sulfamethoxazole/Trimethoprim [Bactrim Ds -] 1 tab PO BID #14 tablet 12/09/17 Clindamycin [Cleocin -] 450 mg PO TID #63 capsule 11/01/19 Review of Systems Unable to obtain ROS, reason: unable to obtain Physical Exam Vital Signs: Vital Signs Temperature 98.2 F 11/05/19 10:00 Pulse Rate 109 H 11/05/19 10:00 Respiratory Rate 11/05/19 10:00 Blood Pressure 153/106 H 11/05/19 10:00 O2 Sat by Pulse Oximetry (%) 98 11/05/19 09:00 Constitutional: Yes: Well Nourished, No Distress, Calm Cardiovascular: Yes: Regular Rate and Rhythm Respiratory: Yes: Regular, CTA Bilaterally Gastrointestinal: Yes: Normal Bowel Sounds, Soft Musculoskeletal: Yes: Other Extremities: Yes: Other Neurological: Yes: Alert, Other Psychiatric: Yes: Other Labs: CBC, BMP 11/05/19 06:23 11/05/19 06:23 Imaging - Results Chest X-ray: Report Reviewed, Image Reviewed Assessment/Plan this patient coming in the hospital with sepsis blood cx positive and abscess on the left thigh i do not see cx from the wound send i am going to give him vanco and ceftriaxone for now and send wound cx monitor for fevers
--- NOTE | 2019-11-05 13:48 | CON.GI ---
Consult Consult Specialty:: GI Referred by:: Medicine Reason for Consultation:: bloody emesis - History of Present Illness Chief Complaint: blood cx positive History of Present Illness: 24M with ho cerebral palsy admitted after abscess drained and blood cx positive. GI consulted for bloody emesis. Reportedly per RN overnight patient was screaming a lot and gagging. Per report had red emesis, unquantified Patient reported emesis was once and purple. States he has abdominal pain. Per RN, no bm today or yesterday. 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) Endocrine: Yes: Hypothyroidism - Alcohol/Substance Use Hx Alcohol Use: No - Smoking History Smoking history: Never smoked Have you smoked in the past 12 months: No - Social History Usual Living Arrangement: With Parent ADL: Family Assistance History of Recent Travel: No Home Medications - Allergies Allergies/Adverse Reactions: Allergies Allergy/AdvReac Type Severity Reaction Status Date / Time No Known Allergies Allergy Verified 10/31/19 23:53 - Home Medications Home Medications: Ambulatory Orders Bacitracin - [Bacitracin Topical Ointment -] 1 applic TP BID #1 tube 12/09/17 Docusate Sodium [Colace -] 100 mg PO Q8H PRN #90 capsule 12/09/17 Enalapril Maleate [Vasotec -] 5 mg PO DAILY #30 tablet 12/09/17 Hydrochlorothiazide [Hctz -] 12.5 mg PO DAILY #30 cap 12/09/17 Levothyroxine [Synthroid -] 150 mcg PO DAILY@0700 #30 tablet 12/09/17 Polyethylene Glycol 3350 [Miralax 119 gm Btl -] 17 gm PO DAILY #1 bottle Sulfamethoxazole/Trimethoprim [Bactrim Ds -] 1 tab PO BID #14 tablet 12/09/17 Clindamycin [Cleocin -] 450 mg PO TID #63 capsule 11/01/19 Review of Systems Unable to obtain ROS, reason: mental status Physical Exam-GI Vital Signs: Vital Signs Temperature 98.2 F 11/05/19 10:00 Pulse Rate 109 H 11/05/19 10:00 Respiratory Rate 20 11/05/19 10:00 Blood Pressure 153/106 H 11/05/19 10:00 O2 Sat by Pulse Oximetry (%) 98 11/05/19 09:00 Constitutional: Yes: No Distress, Diaphoresis HENT: Yes: Atraumatic, Normocephalic Cardiovascular: Yes: Regular Rate and Rhythm Respiratory: Yes: CTA Bilaterally ...Palpate: Yes: Soft, Tenderness (diffusely) ...Rectal Exam: Yes: Deferred (pt uncooperative for rectal exam) Edema: No Neurological: Yes: Alert, Oriented Psychiatric: Yes: Alert, Oriented Labs: CBC, BMP 11/05/19 06:23 11/05/19 06:23 Assessment/Plan Unclear etiology of blood in emesis - perhaps when screaming/gagging caused Emilia Calloway tear vs esophagitis. Unable to do rectal, but no bm x2d at least. Suspect ematogenic injury. Would continue IV BID PPI Can start clear liquids; if hgb is stable again then can put back on diet
[2019-11-05] MEDS ORDERED: DEXTROSE 5%-WATER - 50 ML IVPB ONE (15:26)
[2019-11-05] MEDS ORDERED: cefTRIAXone SODIUM 1 GM VIAL ONE (15:26)
[2019-11-05] MEDS: CEFTRIAXONE 1 GM in DEXTROSE 5%-WATER - 50 ML IVPB SCH (15:32)
[2019-11-05] MEDS ORDERED: ENALAPRIL MALEATE 5 MG TABLET (FP) PO ONE (15:36)
--- NOTE | 2019-11-05 15:45 | ECHO ---
Name: AISLINN WORKMANTEN Exam:Adult Echocardiogram Study Date: 11/05/2019 02:40 PM Age: 24 yrs Height: 60 in Weight: 130 lb BSA: 1.6 m2 MMode/2D Measurements & Calculations IVSd: 1.1 cm EDV(Teich): 28.5 ml LVIDd: 2.8 cm LVPWd: 1.2 cm LVOT diam: 1.8 cm RV S Tristan: 17.4 cm/sec Doppler Measurements & Calculations MV E max tristan: 74.5 cm/sec Ao V2 max: 110.3 cm/sec MV A max tristan: 88.4 cm/sec Ao max P.9 mmHg MV E/A: 0.84 MV dec time: 0.10 sec TAYLOR(V,D): 2.4 cm2 LV V1 max P.2 mmHg PA V2 max: 107.9 cm/sec LV V1 max: 102.2 cm/sec PA max P.7 mmHg Med Peak E' Tristan: 5.9 cm/sec Med E/e': 12.5 Lat Peak E' Tristan: 12.0 cm/sec Lat E/e': 6.2 Procedure Severely limited study. Left Ventricle The left ventricle is normal in size. Left ventricular systolic function is normal. Ejection Fraction = 65- 70%. No regional wall motion abnormalities noted. Right Ventricle The right ventricle is not well visualized. Atria The left atrial size is normal. Right atrium not well visualized. Mitral Valve The mitral valve is normal in structure and function. There is no mitral regurgitation noted. Tricuspid Valve The tricuspid valve is normal in structure and function. No tricuspid regurgitation. Aortic Valve The aortic valve is normal in structure and function. No aortic regurgitation is present. Pulmonic Valve The pulmonic valve is not well visualized. Great Vessels The aortic root is normal size. Pericardium/Pleura There is no pericardial effusion. Interpretation Summary Severely limited study The left ventricle is normal in size. Left ventricular systolic function is normal. No regional wall motion abnormalities noted. Ejection Fraction = 65-70%. The right ventricle is not well visualized. The left atrial size is normal. No significant valvular regurgitations There is no pericardial effusion. Vincent Barrett MD 11/05/2019 03:45 PM
[2019-11-05] MEDS: VANCOMYCIN HCL 1,250 MG in DEXTROSE 5%-WATER - 250 ML IVPB SCH (16:26)
[2019-11-05 18:07] VITALS: BMI 23.4
[2019-11-05] MEDS: ACETAMINOPHEN 1000 MG/100 ML VIAL (NON FORMULARY) IVPB PRN (18:16)
[2019-11-05] MEDS ORDERED: MAGNESIUM OXIDE 400 MG TABLET (FP) PO ONE (18:53)
[2019-11-05] MEDS ORDERED: PIPERACILLIN/TAZOB 3.375 GM 3.375 GM in DEXTROSE 5%-WATER - 50 ML IVPB SCH (21:45)
[2019-11-05] MEDS: PANTOPRAZOLE SODIUM 40 MG VIAL IVPUSH SCH (21:52)
[2019-11-06] MEDS ORDERED: PT OWN MED DRAWER 7, Y5N ONE (01:35)
[2019-11-06] MEDS: VANCOMYCIN HCL 1,250 MG in DEXTROSE 5%-WATER - 250 ML IVPB SCH ×2 (01:41→14:46)
[2019-11-06] MEDS: LORazepam 2 MG/ML SDV VIAL IVPUSH PRN (02:43)
[2019-11-06] MEDS: LEVOTHYROXINE NA 150 MCG TABLET PO SCH (06:01)
[2019-11-06 08:41] LABS: HEMATOCRIT 46.7 % (35.4-49); HEMOGLOBIN 16.2 GM/dL (11.7-16.9); MCH 30.5 pg (25.7-33.7); MCHC 34.6 g/dl (32.0-35.9); MEAN CELL VOLUME 88.1 fl (80-96); MEAN PLT VOLUME 7.7 fl (7.5-11.1); PLATELET COUNT 314 K/MM3 (134-434); WHITE BLOOD COUNT 6.9 K/mm3 (4.0-10.0)
[2019-11-06 09:01] LABS: BLOOD UREA NITROGEN 12.2 mg/dL (7-18); CALCIUM 9.4 mg/dL (8.5-10.1); CREATININE 1.3 mg/dL (0.55-1.3); MAGNESIUM 1.8 mg/dL (1.8-2.4); PHOSPHOROUS 3.8 mg/dL (2.5-4.9); POTASSIUM 3.9 mmol/L (3.5-5.1)
[2019-11-06] MEDS ORDERED: cefTRIAXone SODIUM 1 GM VIAL ONE (09:03)
[2019-11-06] MEDS ORDERED: DEXTROSE 5%-WATER - 50 ML IVPB ONE (09:04)
[2019-11-06] MEDS: PANTOPRAZOLE SODIUM 40 MG VIAL IVPUSH SCH (10:10)
[2019-11-06] MEDS: CEFTRIAXONE 1 GM in DEXTROSE 5%-WATER - 50 ML IVPB SCH (10:13)
[2019-11-06] MEDS: HYDROCHLOROTHIAZIDE 12.5 MG CAPSULE (FP) PO SCH (10:21)
[2019-11-06] MEDS: ENALAPRIL MALEATE 10 MG TABLET (FP) PO SCH (10:22)
[2019-11-06] MEDS: ONDANSETRON 4 MG/2 ML VIAL IVPUSH PRN (10:27)
--- NOTE | 2019-11-06 10:51 | PN ---
Physical Exam: SUBJECTIVE: Patient seen and examined. No acute events overnight. Offers no complaints at this time. OBJECTIVE: Vital Signs Period Temp Pulse Resp BP Sys/Hubbard Pulse Ox Last 24 Hr 97.4 F-98.5 F 91-115 20-20 143-167/98-114 97 GENERAL: anxious EYES: PERRL ENT: moist mucous membranes. NECK: supple. LUNGS: Breath sounds equal, clear to auscultation bilaterally HEART: Regular rate and rhythm, S1, S2 without murmur, rub or gallop. ABDOMEN: Soft, nontender, nondistended, normoactive bowel sounds EXTREMITIES: 2+ pulses, no edema, left hip abscess, quarter sized, no drainage, dry Laboratory Results - last 24 hr 11/06/19 11/06/19 07:45 07:45 WBC 6.9 RBC 5.30 Hgb 16.2 Hct 46.7 MCV 88.1 MCH 30.5 MCHC 34.6 RDW 13.0 Plt Count 314 MPV 7.7 Sodium 137 Potassium 3.9 Chloride 101 Carbon Dioxide 28 Anion Gap 8 BUN 12.2 Creatinine 1.3 Est GFR (CKD-EPI)AfAm 89.14 Est GFR (CKD-EPI)NonAf 76.91 Random Glucose 80 Calcium 9.4 Phosphorus 3.8 Magnesium 1.8 Active Medications Generic Name Dose Route Start Last Admin Trade Name Freq PRN Reason Stop Dose Admin Acetaminophen 1,000 mg 11/04/19 12:12 11/05/19 18:16 Ofirmev Injection - IVPB 1,000 mg Q6H PRN Administration PAIN LEVEL 1-5 Docusate Sodium 100 mg 11/04/19 04:51 Colace - PO Q8H PRN CONSTIPATION Enalapril Maleate 10 mg 11/06/19 10:00 11/06/19 10:22 Vasotec - PO 10 mg DAILY JUAN Administration Hydrochlorothiazide 12.5 mg 11/04/19 10:00 11/06/19 10:21 Hctz - PO 12.5 mg DAILY JUAN Administration Vancomycin HCl 1,250 mg/ 250 mls @ 166.667 mls/hr 11/05/19 14:00 11/06/19 01: 41 Dextrose IVPB 166.667 mls/hr Q12H JUAN Administration Protocol Ceftriaxone Sodium 1 gm/ 50 mls @ 100 mls/hr 11/05/19 13:30 11/06/19 10:13 Dextrose IVPB 100 mls/hr DAILY JUAN Administration Protocol Levothyroxine Sodium 150 mcg 11/04/19 07:00 11/06/19 06:01 Synthroid - PO 150 mcg DAILY@0700 JUAN Administration Lorazepam 0.5 mg 11/04/19 11:41 11/06/19 02:43 Ativan Injection - IVPUSH 0.5 mg Q6H PRN Administration ANXIETY Ondansetron HCl 4 mg 11/04/19 18:09 11/06/19 10:27 Zofran Injection IVPUSH 4 mg Q8H PRN Administration NAUSEA Pantoprazole Sodium 40 mg 11/05/19 22:00 11/06/19 10:10 Protonix Iv IVPUSH 40 mg BID JUAN Administration ASSESSMENT/PLAN: #Sepsis #MRSA bacteremia #Left hip abscess #HTN #Hypothyroidism #Cerebral Palsy Plan: -blood cx + MRSA -FU repeat cultures -IV vanco, ceftriaxone per ID -follow up ID reccs -Echo unremarkable -pain control -protonix 40mg BID per GI -anxiolytics -cw BP meds -cw synthroid Visit type - Emergency Visit Emergency Visit: Yes ED Registration Date: 11/04/19 Care time: The patient presented to the Emergency Department on the above date and was hospitalized for further evaluation of their emergent condition. - New Patient This patient is new to me today: Yes Date on this admission: 11/06/19 - Critical Care Critical Care patient: No ATTENDING PHYSICIAN STATEMENT I saw and evaluated the patient. I reviewed the resident's note and discussed the case with the resident. I agree with the resident's findings and plan as documented. SUBJECTIVE: OBJECTIVE: ASSESSMENT AND PLAN:
--- NOTE | 2019-11-06 11:51 | PN ---
Progress Note, Physician History of Present Illness: stable - Current Medication List Current Medications: Active Medications Acetaminophen (Ofirmev Injection -) 1,000 mg IVPB Q6H PRN PRN Reason: PAIN LEVEL 1-5 Last Admin: 11/05/19 18:16 Dose: 1,000 mg Docusate Sodium (Colace -) 100 mg PO Q8H PRN PRN Reason: CONSTIPATION Enalapril Maleate (Vasotec -) 10 mg PO DAILY [facility] Last Admin: 11/06/19 10:22 Dose: 10 mg Heparin Sodium (Porcine) (Heparin -) 5,000 unit SQ TID [facility] Hydrochlorothiazide (Hctz -) 12.5 mg PO DAILY [facility] Last Admin: 11/06/19 10:21 Dose: 12.5 mg Vancomycin HCl 1,250 mg/ (Dextrose) 250 mls @ 166.667 mls/hr IVPB Q12H [facility]; Protocol Last Admin: 11/06/19 01:41 Dose: 166.667 mls/hr Ceftriaxone Sodium 1 gm/ (Dextrose) 50 mls @ 100 mls/hr IVPB DAILY [facility]; Protocol Last Admin: 11/06/19 10:13 Dose: 100 mls/hr Levothyroxine Sodium (Synthroid -) 150 mcg PO DAILY@0700 [facility] Last Admin: 11/06/19 06:01 Dose: 150 mcg Lorazepam (Ativan Injection -) 0.5 mg IVPUSH Q6H PRN PRN Reason: ANXIETY Last Admin: 11/06/19 02:43 Dose: 0.5 mg Ondansetron HCl (Zofran Injection) 4 mg IVPUSH Q8H PRN PRN Reason: NAUSEA Last Admin: 11/06/19 10:27 Dose: 4 mg Pantoprazole Sodium (Protonix Iv) 40 mg IVPUSH BID [facility] Last Admin: 11/06/19 10:10 Dose: 40 mg - Objective Vital Signs: Vital Signs Temperature 97.4 F L 11/06/19 06:06 Pulse Rate 91 H 11/06/19 06:06 Respiratory Rate 20 11/06/19 06:06 Blood Pressure 143/114 H 11/06/19 06:06 O2 Sat by Pulse Oximetry (%) 97 11/05/19 21:00 Constitutional: Yes: No Distress, Calm Cardiovascular: Yes: S1, S2 Respiratory: Yes: Regular, CTA Bilaterally Gastrointestinal: Yes: Normal Bowel Sounds, Soft Musculoskeletal: Yes: WNL Extremities: Yes: WNL Neurological: Yes: Alert, Oriented Labs: CBC, BMP 11/06/19 07:45 11/06/19 07:45 Assessment/Plan plan conitnue abx check vanco level rest as per the team
[2019-11-06] MEDS: HEPARIN NA (PORCINE) 5,000 UNITS/ML 1ML VIAL SQ SCH ×2 (14:53→22:29)
--- NOTE | 2019-11-06 16:38 | PN ---
Teaching Attending Note Name of Resident: Roxane Reich ATTENDING PHYSICIAN STATEMENT I saw and evaluated the patient. I reviewed the resident's note and discussed the case with the resident. I agree with the resident's findings and plan as documented. SUBJECTIVE: Seen and examined at bedside, patient smiling today, no complaints. As per RN, vomited after clears this AM. OBJECTIVE: Vital Signs - 24 hr 11/05/19 11/05/19 11/05/19 19:13 21:00 22:00 Temperature 98.5 F 98 F Pulse Rate 115 H 111 H Respiratory 20 20 20 Rate Blood Pressure 167/107 H 152/98 O2 Sat by Pulse 97 Oximetry (%) 11/06/19 11/06/19 11/06/19 06:06 09:00 10:00 Temperature 97.4 F L 97.8 F Pulse Rate 91 H 94 H Respiratory 20 20 Rate Blood Pressure 143/114 H 156/99 O2 Sat by Pulse 98 Oximetry (%) 11/06/19 14:04 Temperature 98.1 F Pulse Rate 98 H Respiratory 20 Rate Blood Pressure 159/96 O2 Sat by Pulse Oximetry (%) PE: Constitutional: NAD Cardiovascular: RRR Respiratory: WNL, Regular, CTA Bilaterally Gastrointestinal: WNL, Normal Bowel Sounds, Soft Musculoskeletal: WNL Extremities: left hip abscess, quarter sized, no drainage, dry Edema: No Peripheral Pulses WNL: Yes Current Medications Acetaminophen (Ofirmev Injection -) 1,000 mg IVPB Q6H PRN PRN Reason: PAIN LEVEL 1-5 Last Admin: 11/05/19 18:16 Dose: 1,000 mg Docusate Sodium (Colace -) 100 mg PO Q8H PRN PRN Reason: CONSTIPATION Enalapril Maleate (Vasotec -) 10 mg PO DAILY [facility] Last Admin: 11/06/19 10:22 Dose: 10 mg Heparin Sodium (Porcine) (Heparin -) 5,000 unit SQ TID [facility] Last Admin: 11/06/19 14:53 Dose: 5,000 unit Hydrochlorothiazide (Hctz -) 12.5 mg PO DAILY [facility] Last Admin: 11/06/19 10:21 Dose: 12.5 mg Vancomycin HCl 1,250 mg/ (Dextrose) 250 mls @ 166.667 mls/hr IVPB Q12H [facility]; Protocol Last Admin: 11/06/19 14:46 Dose: 166.667 mls/hr Ceftriaxone Sodium 1 gm/ (Dextrose) 50 mls @ 100 mls/hr IVPB DAILY [facility]; Protocol Last Admin: 11/06/19 10:13 Dose: 100 mls/hr Levothyroxine Sodium (Synthroid -) 150 mcg PO DAILY@0700 [facility] Last Admin: 11/06/19 06:01 Dose: 150 mcg Lorazepam (Ativan Injection -) 0.5 mg IVPUSH Q6H PRN PRN Reason: ANXIETY Last Admin: 11/06/19 02:43 Dose: 0.5 mg Ondansetron HCl (Zofran Injection) 4 mg IVPUSH Q8H PRN PRN Reason: NAUSEA Last Admin: 11/06/19 10:27 Dose: 4 mg Pantoprazole Sodium (Protonix Iv) 40 mg IVPUSH BID [facility] Last Admin: 11/06/19 10:10 Dose: 40 mg Laboratory Results - last 24 hr 11/06/19 11/06/19 07:45 07:45 WBC 6.9 RBC 5.30 Hgb 16.2 Hct 46.7 MCV 88.1 MCH 30.5 MCHC 34.6 RDW 13.0 Plt Count 314 MPV 7.7 Sodium 137 Potassium 3.9 Chloride 101 Carbon Dioxide 28 Anion Gap 8 BUN 12.2 Creatinine 1.3 Est GFR (CKD-EPI)AfAm 89.14 Est GFR (CKD-EPI)NonAf 76.91 Random Glucose 80 Calcium 9.4 Phosphorus 3.8 Magnesium 1.8 Microbiology 11/05/19 16:03 Hip - Left Gram Stain - Final 11/04/19 01:30 Blood - Peripheral Venous Blood Culture - Preliminary NO GROWTH OBTAINED AFTER 48 HOURS, INCUBATION TO CONTINUE FOR 3 DAYS. 11/04/19 01:30 Blood - Peripheral Venous Blood Culture - Preliminary NO GROWTH OBTAINED AFTER 48 HOURS, INCUBATION TO CONTINUE FOR 3 DAYS. Assessment: Sepsis MRSA bacteremia Left hip abscess HTN Hypothyroidism Cerebral Palsy ? Hematemesis Plan: blood cx + MRSA IV vanco culture pending 2decho no vegetations, limited study repeat blood cultures neg to date ID eval zofran as needed cw BP meds cw synthroid cw clears, monitor for further bleeding, h/h stable advance diet in AM fu FOBT PPI GI eval Problem List - Problems (1) Fever Code(s): R50.9 - FEVER, UNSPECIFIED Qualifiers: Fever type: unspecified Qualified Code(s): R50.9 - Fever, unspecified (2) Gram-positive cocci in clusters Code(s): R68.89 - OTHER GENERAL SYMPTOMS AND SIGNS (3) Tachycardia Code(s): R00.0 - TACHYCARDIA, UNSPECIFIED (4) Abscess Code(s): L02.91 - CUTANEOUS ABSCESS, UNSPECIFIED (5) Cellulitis Code(s): L03.90 - CELLULITIS, UNSPECIFIED (6) Cerebral palsy Code(s): G80.9 - CEREBRAL PALSY, UNSPECIFIED (7) Elevated lactic acid level Code(s): R79.89 - OTHER SPECIFIED ABNORMAL FINDINGS OF BLOOD CHEMISTRY
--- NOTE | 2019-11-06 16:58 | PN.GI ---
GI Progress Note Subjective: No acute events No abdominal pain No vomiting, melena or hematemesis Mother present at bedside - Objective Vital Signs: Vital Signs Temperature 98.1 F 11/06/19 14:04 Pulse Rate 98 H 11/06/19 14:04 Respiratory Rate 11/06/19 14:04 Blood Pressure 159/96 11/06/19 14:04 O2 Sat by Pulse Oximetry (%) 98 11/06/19 09:00 Constitutional: Calm Eyes: No: Sclera Icterus Cardiovascular: Yes: Regular Rate and Rhythm Respiratory: Yes: CTA Bilaterally Gastrointestinal Inspection: No: Distention ...Auscultate: Yes: Normoactive Bowel Sounds ...Percussion: No: Tympanitic Edema: No (No LE edema) Neurological: Yes: Alert Labs: CBC, BMP 11/06/19 07:45 11/06/19 07:45 Problem List - Problems (1) Vomiting Assessment/Plan: No further vomiting and Hgb remains normal/elevated Changed to protonix 40mg once daily. Can continue for 6-8 weeks Recall as needed Code(s): R11.10 - VOMITING, UNSPECIFIED
[2019-11-07] MEDS: VANCOMYCIN HCL 1,250 MG in DEXTROSE 5%-WATER - 250 ML IVPB SCH ×2 (01:39→14:19)
[2019-11-07] MEDS: HEPARIN NA (PORCINE) 5,000 UNITS/ML 1ML VIAL SQ SCH ×3 (06:04→23:32)
[2019-11-07] MEDS: LEVOTHYROXINE NA 150 MCG TABLET PO SCH (06:04)
[2019-11-07 08:26] LABS: BASO % 0.3 % (0-2.0); EOS % 5.9 % (0-4.5); HEMATOCRIT 48.5 % (35.4-49); HEMOGLOBIN 16.7 GM/dL (11.7-16.9); MCH 30.4 pg (25.7-33.7); MCHC 34.5 g/dl (32.0-35.9); MEAN CELL VOLUME 88.1 fl (80-96); MEAN PLT VOLUME 7.7 fl (7.5-11.1); MONO % 12.1 % (3.8-10.2); NEUT % 62.7 % (42.8-82.8); PLATELET COUNT 324 K/MM3 (134-434); RBC 5.51 M/mm3 (4.00-5.60); RDW 12.8 % (11.9-15.9); WHITE BLOOD COUNT 7.9 K/mm3 (4.0-10.0)
[2019-11-07 08:39] LABS: ALBUMIN 3.9 g/dl (3.4-5.0); BILIRUBIN,TOTAL 0.8 mg/dL (0.2-1); BLOOD UREA NITROGEN 13.7 mg/dL (7-18); CALCIUM 9.9 mg/dL (8.5-10.1); CREATININE 1.5 mg/dL (0.55-1.3); TOT PROT 8.2 g/dl (6.4-8.2)
[2019-11-07] MEDS ORDERED: cefTRIAXone SODIUM 1 GM VIAL ONE (08:56)
[2019-11-07] MEDS ORDERED: DEXTROSE 5%-WATER - 50 ML IVPB ONE (08:57)
--- NOTE | 2019-11-07 09:33 | PN ---
Progress Note, Physician History of Present Illness: stable no new issues still with abd pain after eating - Current Medication List Current Medications: Active Medications Acetaminophen (Ofirmev Injection -) 1,000 mg IVPB Q6H PRN PRN Reason: PAIN LEVEL 1-5 Last Admin: 11/05/19 18:16 Dose: 1,000 mg Docusate Sodium (Colace -) 100 mg PO Q8H PRN PRN Reason: CONSTIPATION Enalapril Maleate (Vasotec -) 10 mg PO DAILY [facility] Last Admin: 11/06/19 10:22 Dose: 10 mg Heparin Sodium (Porcine) (Heparin -) 5,000 unit SQ TID [facility] Last Admin: 11/07/19 06:04 Dose: 5,000 unit Hydrochlorothiazide (Hctz -) 12.5 mg PO DAILY [facility] Last Admin: 11/06/19 10:21 Dose: 12.5 mg Vancomycin HCl 1,250 mg/ (Dextrose) 250 mls @ 166.667 mls/hr IVPB Q12H [facility]; Protocol Last Admin: 11/07/19 01:39 Dose: 166.667 mls/hr Ceftriaxone Sodium 1 gm/ (Dextrose) 50 mls @ 100 mls/hr IVPB DAILY [facility]; Protocol Last Admin: 11/06/19 10:13 Dose: 100 mls/hr Levothyroxine Sodium (Synthroid -) 150 mcg PO DAILY@0700 [facility] Last Admin: 11/07/19 06:04 Dose: 150 mcg Lorazepam (Ativan Injection -) 0.5 mg IVPUSH Q6H PRN PRN Reason: ANXIETY Last Admin: 11/06/19 02:43 Dose: 0.5 mg Ondansetron HCl (Zofran Injection) 4 mg IVPUSH Q8H PRN PRN Reason: NAUSEA Last Admin: 11/06/19 10:27 Dose: 4 mg Pantoprazole Sodium (Protonix -) 40 mg PO DAILY [facility] - Objective Vital Signs: Vital Signs Temperature 97.6 F 11/07/19 06:05 Pulse Rate 108 H 11/07/19 06:05 Respiratory Rate 11/07/19 06:05 Blood Pressure 152/109 H 11/07/19 06:05 O2 Sat by Pulse Oximetry (%) 97 11/06/19 21:00 Constitutional: Yes: No Distress, Calm Cardiovascular: Yes: S1, S2 Respiratory: Yes: Regular, CTA Bilaterally Gastrointestinal: Yes: Normal Bowel Sounds, Soft Musculoskeletal: Yes: WNL Extremities: Yes: Other Neurological: Yes: Alert Labs: CBC, BMP 11/07/19 07:45 11/07/19 07:45 Assessment/Plan Problem List - Problems (1) Fever Code(s): R50.9 - FEVER, UNSPECIFIED Qualifiers: Fever type: unspecified Qualified Code(s): R50.9 - Fever, unspecified (2) Gram-positive cocci in clusters Code(s): R68.89 - OTHER GENERAL SYMPTOMS AND SIGNS (3) Tachycardia Code(s): R00.0 - TACHYCARDIA, UNSPECIFIED (4) Abscess Code(s): L02.91 - CUTANEOUS ABSCESS, UNSPECIFIED (5) Cellulitis Code(s): L03.90 - CELLULITIS, UNSPECIFIED (6) Cerebral palsy Code(s): G80.9 - CEREBRAL PALSY, UNSPECIFIED (7) Elevated lactic acid level Code(s): R79.89 - OTHER SPECIFIED ABNORMAL FINDINGS OF BLOOD CHEMISTRY plan continue abx await for cx report will check vano trough rest as per the team
[2019-11-07] MEDS: HYDROCHLOROTHIAZIDE 12.5 MG CAPSULE (FP) PO SCH (09:52)
[2019-11-07] MEDS: PANTOPRAZOLE 40 MG TABLET PO SCH (09:52)
[2019-11-07] MEDS: ENALAPRIL MALEATE 10 MG TABLET (FP) PO SCH (09:53)
[2019-11-07] MEDS: CEFTRIAXONE 1 GM in DEXTROSE 5%-WATER - 50 ML IVPB SCH (09:53)
--- NOTE | 2019-11-07 13:38 | PN ---
Physical Exam: SUBJECTIVE: Patient seen and examined. Says he has abdominal pain. No acute events overnight. OBJECTIVE: Vital Signs Period Temp Pulse Resp BP Sys/Hubbard Pulse Ox Last 24 Hr 97.6 F-98.1 F 88-113 16-20 151-164/96-109 97-98 GENERAL: comfortable, in NAD EYES: PERRL ENT: moist mucous membranes. NECK: supple. LUNGS: Breath sounds equal, clear to auscultation bilaterally HEART: Regular rate and rhythm, S1, S2 without murmur, rub or gallop. ABDOMEN: Soft, nontender, nondistended, normoactive bowel sounds EXTREMITIES: 2+ pulses, no edema, left hip abscess, quarter sized, no drainage, dry Laboratory Results - last 24 hr 11/07/19 11/07/19 07:45 07:45 WBC 7.9 RBC 5.51 Hgb 16.7 Hct 48.5 MCV 88.1 MCH 30.4 MCHC 34.5 RDW 12.8 Plt Count 324 MPV 7.7 Absolute Neuts (auto) 4.9 Neutrophils % 62.7 Lymphocytes % 19.0 D Monocytes % 12.1 H Eosinophils % 5.9 H D Basophils % 0.3 Nucleated RBC % 0 Sodium 137 Potassium 4.0 Chloride 100 Carbon Dioxide 29 Anion Gap 9 BUN 13.7 Creatinine 1.5 H Est GFR (CKD-EPI)AfAm 74.98 Est GFR (CKD-EPI)NonAf 64.69 Random Glucose 95 Calcium 9.9 Total Bilirubin 0.8 AST 60 H ALT 59 Alkaline Phosphatase 107 Total Protein 8.2 Albumin 3.9 Active Medications Generic Name Dose Route Start Last Admin Trade Name Weiq PRN Reason Stop Dose Admin Acetaminophen 1,000 mg 11/04/19 12:12 11/05/19 18:16 Ofirmev Injection - IVPB 1,000 mg Q6H PRN Administration PAIN LEVEL 1-5 Docusate Sodium 100 mg 11/04/19 04:51 Colace - PO Q8H PRN CONSTIPATION Enalapril Maleate 10 mg 11/06/19 10:00 11/07/19 09:53 Vasotec - PO 10 mg DAILY JUAN Administration Heparin Sodium (Porcine) 5,000 unit 11/06/19 14:00 11/07/19 13:23 Heparin - SQ 5,000 unit TID JUAN Administration Hydrochlorothiazide 12.5 mg 11/04/19 10:00 11/07/19 09:52 Hctz - PO 12.5 mg DAILY [facility]UAN Administration Vancomycin HCl 1,250 mg/ 250 mls @ 166.667 mls/hr 11/05/19 14:00 11/07/19 01: 39 Dextrose IVPB 166.667 mls/hr Q12H [facility]UAN Administration Protocol Ceftriaxone Sodium 1 gm/ 50 mls @ 100 mls/hr 11/05/19 13:30 11/07/19 09:53 Dextrose IVPB 100 mls/hr DAILY [facility] Administration Protocol Levothyroxine Sodium 150 mcg 11/04/19 07:00 11/07/19 06:04 Synthroid - PO 150 mcg DAILY@0700 JUAN Administration Lorazepam 0.5 mg 11/04/19 11:41 11/06/19 02:43 Ativan Injection - IVPUSH 0.5 mg Q6H PRN Administration ANXIETY Ondansetron HCl 4 mg 11/04/19 18:09 11/06/19 10:27 Zofran Injection IVPUSH 4 mg Q8H PRN Administration NAUSEA Pantoprazole Sodium 40 mg 11/07/19 10:00 11/07/19 09:52 Protonix - PO 40 mg DAILY [facility] Administration ASSESSMENT/PLAN: #Sepsis #MRSA bacteremia #Left hip abscess #HTN #Hypothyroidism #Cerebral Palsy Plan: -blood cx + MRSA -FU repeat cultures. Negative after 72 hours. -IV vanco, ceftriaxone per ID -follow up ID reccs -Echo unremarkable -pain control -protonix 40mg BID per GI. can continue for 6-8 weeks. -anxiolytics -cw BP meds -cw synthroid -clear liquid diet Visit type - Emergency Visit Emergency Visit: Yes ED Registration Date: 11/04/19 Care time: The patient presented to the Emergency Department on the above date and was hospitalized for further evaluation of their emergent condition. - New Patient This patient is new to me today: Yes Date on this admission: 11/07/19 - Critical Care Critical Care patient: No ATTENDING PHYSICIAN STATEMENT I saw and evaluated the patient. I reviewed the resident's note and discussed the case with the resident. I agree with the resident's findings and plan as documented. SUBJECTIVE: OBJECTIVE: ASSESSMENT AND PLAN:
--- NOTE | 2019-11-07 17:55 | PN ---
Teaching Attending Note Name of Resident: Roxane Reich ATTENDING PHYSICIAN STATEMENT I saw and evaluated the patient. I reviewed the resident's note and discussed the case with the resident. I agree with the resident's findings and plan as documented. SUBJECTIVE: Seen and examined at bedside. feeling better. OBJECTIVE: Vital Signs - 24 hr 11/06/19 11/06/19 11/06/19 18:00 21:00 22:00 Temperature 97.6 F 98 F Pulse Rate 113 H 102 H Respiratory 20 16 20 Rate Blood Pressure 158/106 H 151/99 O2 Sat by Pulse 97 Oximetry (%) 11/07/19 11/07/19 11/07/19 06:05 09:00 10:00 Temperature 97.6 F 98.1 F Pulse Rate 108 H 88 Respiratory 20 18 18 Rate Blood Pressure 152/109 H 164/100 O2 Sat by Pulse 98 Oximetry (%) 11/07/19 11/07/19 14:37 14:40 Temperature 98.6 F 98.6 F Pulse Rate 111 H 111 H Respiratory 20 20 Rate Blood Pressure 152/94 152/94 O2 Sat by Pulse Oximetry (%) PE: Constitutional: NAD Cardiovascular: RRR Respiratory: WNL, Regular, CTA Bilaterally Gastrointestinal: WNL, Normal Bowel Sounds, Soft Musculoskeletal: WNL Extremities: left hip abscess, no drainage, dry Edema: No Current Medications Acetaminophen (Ofirmev Injection -) 1,000 mg IVPB Q6H PRN PRN Reason: PAIN LEVEL 1-5 Last Admin: 11/05/19 18:16 Dose: 1,000 mg Docusate Sodium (Colace -) 100 mg PO Q8H PRN PRN Reason: CONSTIPATION Enalapril Maleate (Vasotec -) 10 mg PO DAILY ON LICENSE OF [facility] Last Admin: 11/07/19 09:53 Dose: 10 mg Heparin Sodium (Porcine) (Heparin -) 5,000 unit SQ TID ON LICENSE OF [facility] Last Admin: 11/07/19 13:23 Dose: 5,000 unit Hydrochlorothiazide (Hctz -) 12.5 mg PO DAILY ON LICENSE OF [facility] Last Admin: 11/07/19 09:52 Dose: 12.5 mg Vancomycin HCl 1,250 mg/ (Dextrose) 250 mls @ 166.667 mls/hr IVPB Q12H ON LICENSE OF [facility]; Protocol Last Admin: 11/07/19 14:19 Dose: Not Given Ceftriaxone Sodium 1 gm/ (Dextrose) 50 mls @ 100 mls/hr IVPB DAILY ON LICENSE OF [facility]; Protocol Last Admin: 11/07/19 09:53 Dose: 100 mls/hr Levothyroxine Sodium (Synthroid -) 150 mcg PO DAILY@0700 ON LICENSE OF [facility] Last Admin: 11/07/19 06:04 Dose: 150 mcg Lorazepam (Ativan Injection -) 0.5 mg IVPUSH Q6H PRN PRN Reason: ANXIETY Last Admin: 11/06/19 02:43 Dose: 0.5 mg Ondansetron HCl (Zofran Injection) 4 mg IVPUSH Q8H PRN PRN Reason: NAUSEA Last Admin: 11/06/19 10:27 Dose: 4 mg Pantoprazole Sodium (Protonix -) 40 mg PO DAILY ON LICENSE OF [facility] Last Admin: 11/07/19 09:52 Dose: 40 mg Laboratory Results - last 24 hr 11/07/19 11/07/19 11/07/19 07:45 07:45 13:15 WBC 7.9 RBC 5.51 Hgb 16.7 Hct 48.5 MCV 88.1 MCH 30.4 MCHC 34.5 RDW 12.8 Plt Count 324 MPV 7.7 Absolute Neuts (auto) 4.9 Neutrophils % 62.7 Lymphocytes % 19.0 D Monocytes % 12.1 H Eosinophils % 5.9 H D Basophils % 0.3 Nucleated RBC % 0 Sodium 137 Potassium 4.0 Chloride 100 Carbon Dioxide 29 Anion Gap 9 BUN 13.7 Creatinine 1.5 H Est GFR (CKD-EPI)AfAm 74.98 Est GFR (CKD-EPI)NonAf 64.69 Random Glucose 95 Calcium 9.9 Total Bilirubin 0.8 AST 60 H ALT 59 Alkaline Phosphatase 107 Total Protein 8.2 Albumin 3.9 Vancomycin Pre-Dose 28.9 H Microbiology 11/05/19 16:03 Hip - Left Gram Stain - Final 11/05/19 16:03 Hip - Left Wound Culture - Preliminary Presumptive Mrsa (Pbp2a Pos) 11/05/19 18:45 Urine - Urine Clean Catch Urine Culture - Final NO GROWTH OBTAINED 11/04/19 01:30 Blood - Peripheral Venous Blood Culture - Preliminary NO GROWTH OBTAINED AFTER 72 HOURS, INCUBATION TO CONTINUE FOR 2 DAYS. 11/04/19 01:30 Blood - Peripheral Venous Blood Culture - Preliminary NO GROWTH OBTAINED AFTER 72 HOURS, INCUBATION TO CONTINUE FOR 2 DAYS. ASSESSMENT AND PLAN: Sepsis MRSA bacteremia Left hip abscess HTN Hypothyroidism Cerebral Palsy ? Hematemesis Plan: blood cx + MRSA wound cx +MRSA, DC rocephin c/w IV vanco, check trough 2decho no vegetations, limited study repeat blood cultures neg to date ID eval cw BP meds cw synthroid advance diet PPI 6-8 wks GI eval Problem List - Problems (1) Fever Code(s): R50.9 - FEVER, UNSPECIFIED Qualifiers: Fever type: unspecified Qualified Code(s): R50.9 - Fever, unspecified (2) Gram-positive cocci in clusters Code(s): R68.89 - OTHER GENERAL SYMPTOMS AND SIGNS (3) Tachycardia Code(s): R00.0 - TACHYCARDIA, UNSPECIFIED (4) Abscess Code(s): L02.91 - CUTANEOUS ABSCESS, UNSPECIFIED (5) Cellulitis Code(s): L03.90 - CELLULITIS, UNSPECIFIED (6) Cerebral palsy Code(s): G80.9 - CEREBRAL PALSY, UNSPECIFIED (7) Elevated lactic acid level Code(s): R79.89 - OTHER SPECIFIED ABNORMAL FINDINGS OF BLOOD CHEMISTRY
[2019-11-07] MEDS: ONDANSETRON 4 MG/2 ML VIAL IVPUSH PRN (23:32)
[2019-11-07] MEDS: LORazepam 2 MG/ML SDV VIAL IVPUSH PRN (23:32)
[2019-11-08] MEDS: LEVOTHYROXINE NA 150 MCG TABLET PO SCH (06:01)
[2019-11-08] MEDS: HEPARIN NA (PORCINE) 5,000 UNITS/ML 1ML VIAL SQ SCH ×3 (06:01→21:03)
[2019-11-08 07:46] LABS: BASO % 0.3 % (0-2.0); EOS % 8.1 % (0-4.5); HEMATOCRIT 48.5 % (35.4-49); HEMOGLOBIN 16.4 GM/dL (11.7-16.9); LYMPH % 42.4 % (8-40); MCH 30.6 pg (25.7-33.7); MCHC 33.9 g/dl (32.0-35.9); MEAN CELL VOLUME 90.3 fl (80-96); MEAN PLT VOLUME 7.8 fl (7.5-11.1); MONO % 21.7 % (3.8-10.2); NEUT % 27.5 % (42.8-82.8); PLATELET COUNT 312 K/MM3 (134-434); RBC 5.37 M/mm3 (4.00-5.60); RDW 12.7 % (11.9-15.9)
[2019-11-08 07:55] LABS: ALBUMIN 3.9 g/dl (3.4-5.0); BILIRUBIN,TOTAL 0.6 mg/dL (0.2-1); BLOOD UREA NITROGEN 19.1 mg/dL (7-18); CALCIUM 9.7 mg/dL (8.5-10.1); CREATININE 1.6 mg/dL (0.55-1.3); POTASSIUM 4.1 mmol/L (3.5-5.1); TOT PROT 8.3 g/dl (6.4-8.2)
[2019-11-08 09:21] LABS: ANISOCYTOSIS 0; MACROCYTOSIS 0; PLATELET ESTIMATE NORMAL
--- NOTE | 2019-11-08 09:32 | PN ---
Physical Exam: SUBJECTIVE: Patient seen and examined. Looks comfortable this AM. Says he feels good. Denies abdominal pain this morning. 1 episode of vomiting overnight. Per nurse, she believes patient vomits when he is alone in the room and anxious. She says when he is around people and less anxious, he never complains. OBJECTIVE: Vital Signs Period Temp Pulse Resp BP Sys/Hubbard Pulse Ox Last 24 Hr 98.1 F-98.6 F 88-114 18-20 138-164/83-100 98 GENERAL: comfortable, in NAD EYES: PERRL ENT: moist mucous membranes. NECK: supple. LUNGS: Breath sounds equal, clear to auscultation bilaterally HEART: Regular rate and rhythm, S1, S2 without murmur, rub or gallop. ABDOMEN: Soft, nontender, nondistended, normoactive bowel sounds EXTREMITIES: 2+ pulses, no edema, left hip abscess, quarter sized, small amount of purulence when squeezed. Laboratory Results - last 24 hr 11/07/19 11/08/19 11/08/19 13:15 06:05 06:05 WBC 4.0 RBC 5.37 Hgb 16.4 Hct 48.5 MCV 90.3 MCH 30.6 MCHC 33.9 RDW 12.7 Plt Count 312 MPV 7.8 Absolute Neuts (auto) 1.1 L Neutrophils % 27.5 L D Lymphocytes % 42.4 H D Monocytes % 21.7 H Eosinophils % 8.1 H Basophils % 0.3 Nucleated RBC % 0 Sodium 140 Potassium 4.1 Chloride 100 Carbon Dioxide 34 H Anion Gap 6 L BUN 19.1 H Creatinine 1.6 H Est GFR (CKD-EPI)AfAm 69.35 Est GFR (CKD-EPI)NonAf 59.83 Random Glucose 94 Calcium 9.7 Total Bilirubin 0.6 AST 78 H ALT 86 H Alkaline Phosphatase 105 Total Protein 8.3 H Albumin 3.9 Vancomycin Pre-Dose 28.9 H Active Medications Generic Name Dose Route Start Last Admin Trade Name Freq PRN Reason Stop Dose Admin Acetaminophen 1,000 mg 11/04/19 12:12 11/05/19 18:16 Ofirmev Injection - IVPB 1,000 mg Q6H PRN Administration PAIN LEVEL 1-5 Docusate Sodium 100 mg 11/04/19 04:51 Colace - PO Q8H PRN CONSTIPATION Enalapril Maleate 10 mg 11/06/19 10:00 11/07/19 09:53 Vasotec - PO 10 mg DAILY JUAN Administration Heparin Sodium (Porcine) 5,000 unit 11/06/19 14:00 11/08/19 06:01 Heparin - SQ 5,000 unit TID JUAN Administration Hydrochlorothiazide 12.5 mg 11/04/19 10:00 11/07/19 09:52 Hctz - PO 12.5 mg DAILY JUAN Administration Ceftriaxone Sodium 1 gm/ 50 mls @ 100 mls/hr 11/05/19 13:30 11/07/19 09:53 Dextrose IVPB 100 mls/hr DAILY JUAN Administration Protocol Levothyroxine Sodium 150 mcg 11/04/19 07:00 11/08/19 06:01 Synthroid - PO 150 mcg DAILY@0700 JUAN Administration Lorazepam 0.5 mg 11/04/19 11:41 11/07/19 23:32 Ativan Injection - IVPUSH 0.5 mg Q6H PRN Administration ANXIETY Ondansetron HCl 4 mg 11/04/19 18:09 11/07/19 23:32 Zofran Injection IVPUSH 4 mg Q8H PRN Administration NAUSEA Pantoprazole Sodium 40 mg 11/07/19 10:00 11/07/19 09:52 Protonix - PO 40 mg DAILY JUAN Administration ASSESSMENT/PLAN: #Sepsis (tachypnea, tachycardia) secondary to MRSA bacteremia from left thigh abscess #MRSA bacteremia #Left hip abscess #Abd Pain #vomiting #COLLEEN #HTN #Hypothyroidism #Cerebral Palsy Plan: -Abscess with mrsa -1st set blood cx + MRSA -repeat bcx cultures negative -IV vanco per ID -will d/c recopehin. -Cr with bump to 1.5 today. Will start IV fluids -follow up ID reccs -Echo unremarkable -pain control -protonix 40mg BID per GI. can continue for 6-8 weeks. -anxiolytics -cw BP meds -cw synthroid -clear liquid diet -dvt ppx hep sq Visit type - Emergency Visit Emergency Visit: Yes ED Registration Date: 11/04/19 Care time: The patient presented to the Emergency Department on the above date and was hospitalized for further evaluation of their emergent condition. - New Patient This patient is new to me today: Yes Date on this admission: 11/08/19 - Critical Care Critical Care patient: No ATTENDING PHYSICIAN STATEMENT I saw and evaluated the patient. I reviewed the resident's note and discussed the case with the resident. I agree with the resident's findings and plan as documented. SUBJECTIVE: OBJECTIVE: ASSESSMENT AND PLAN:
[2019-11-08] MEDS: ENALAPRIL MALEATE 10 MG TABLET (FP) PO SCH (11:38)
[2019-11-08] MEDS: HYDROCHLOROTHIAZIDE 12.5 MG CAPSULE (FP) PO SCH (11:38)
[2019-11-08] MEDS: PANTOPRAZOLE 40 MG TABLET PO SCH (11:38)
--- NOTE | 2019-11-08 11:39 | DS ---
Physical Exam: SUBJECTIVE: Patient seen and examined. Looks comfortable this AM. Says he feels good. Denies abdominal pain this morning. 1 episode of vomiting overnight. Per nurse, she believes patient vomits when he is alone in the room and anxious. She says when he is around people and less anxious, he never complains. OBJECTIVE: Vital Signs Period Temp Pulse Resp BP Sys/Hubbard Pulse Ox Last 24 Hr 98.2 F-98.6 F 96-114 18-20 138-161/83-99 98 PHYSICAL EXAM GENERAL: comfortable, in NAD EYES: PERRL ENT: moist mucous membranes. NECK: supple. LUNGS: Breath sounds equal, clear to auscultation bilaterally HEART: Regular rate and rhythm, S1, S2 without murmur, rub or gallop. ABDOMEN: Soft, nontender, nondistended, normoactive bowel sounds EXTREMITIES: 2+ pulses, no edema, left hip abscess, quarter sized, minimal purulence when squeezed. LABS Laboratory Results - last 24 hr 11/07/19 11/08/19 11/08/19 13:15 06:05 06:05 WBC 4.0 RBC 5.37 Hgb 16.4 Hct 48.5 MCV 90.3 MCH 30.6 MCHC 33.9 RDW 12.7 Plt Count 312 MPV 7.8 Absolute Neuts (auto) 1.1 L Neutrophils % 27.5 L D Neutrophils % (Manual) 35.0 L D Band Neutrophils % 0.0 Lymphocytes % 42.4 H D Lymphocytes % (Manual) 42.7 H D Monocytes % 21.7 H Monocytes % (Manual) 16 H Eosinophils % 8.1 H Eosinophils % (Manual) 5.8 H D Basophils % 0.3 Basophils % (Manual) 1.0 D Myelocytes % (Man) 0 Promyelocytes % (Man) 0 Blast Cells % (Manual) 0 Nucleated RBC % 0 Metamyelocytes 0 Hypochromia 0 Platelet Estimate Normal Polychromasia 0 Poikilocytosis 0 Anisocytosis 0 Microcytosis 0 Macrocytosis 0 Sodium 140 Potassium 4.1 Chloride 100 Carbon Dioxide 34 H Anion Gap 6 L BUN 19.1 H Creatinine 1.6 H Est GFR (CKD-EPI)AfAm 69.35 Est GFR (CKD-EPI)NonAf 59.83 Random Glucose 94 Calcium 9.7 Total Bilirubin 0.6 AST 78 H ALT 86 H Alkaline Phosphatase 105 Total Protein 8.3 H Albumin 3.9 Vancomycin Pre-Dose 28.9 H HOSPITAL COURSE: Date of Admission:11/04/19 #Sepsis (tachypnea, tachycardia) secondary to MRSA bacteremia from left thigh abscess #MRSA bacteremia #Left hip abscess #Abd Pain #vomiting #COLLEEN #HTN #Hypothyroidism #Cerebral Palsy Plan: -Abscess with mrsa. Completed 6 days of IV vancomycin. Will need to complete another 9 days. Complete on 11/17/2019 -1st set blood cx + MRSA -repeat bcx cultures negative -d/c recopehin. -Cr with bump to 1.5 today. likely from vomiting. Will start IV fluids -ID on board -Echo unremarkable -protonix 40mg BID per GI. can continue for 6-8 weeks. -anxiolytics -cw BP meds -cw synthroid Date of Discharge: 11/08/19 Discharge Summary Problems reviewed: Yes Reason For Visit: FEVER/GRAM-POSITIVE/COCCI IN CLUSTERS/TACHYCARDIA Current Active Problems Fever (Acute) GI bleed (Acute) Gram-positive cocci in clusters (Acute) MRSA (methicillin resistant staph aureus) culture positive (Acute) Tachycardia (Acute) Vomiting (Acute) Condition: Stable - Instructions Diet, Activity, Other Instructions: You were admitted because of an abscess in your left thigh which was also consistent with MRSA. You were treated with antibiotics in the hospital and will continue to take antibiotics for 9 more days (Last dose 11/17/2019). You can continue taking protonix 40mg twice a day for 6-8 weeks for the nausea/ vomiting. Please repeat CMP in facility after 1 week. Referrals: Becka Singh NP [Primary Care Provider] - 1 Week Disposition: [facility] - Home Medications Comprehensive Discharge Medication List: Ambulatory Orders Docusate Sodium [Colace -] 100 mg PO Q8H PRN #90 capsule 12/09/17 Enalapril Maleate [Vasotec -] 5 mg PO DAILY #30 tablet 12/09/17 Hydrochlorothiazide [Hctz -] 12.5 mg PO DAILY #30 cap 12/09/17 Levothyroxine [Synthroid -] 150 mcg PO DAILY@0700 #30 tablet 12/09/17 Polyethylene Glycol 3350 [Miralax 119 gm Btl -] 17 gm PO DAILY #1 bottle Ondansetron Injection [Zofran Injection] 4 mg IVPUSH Q8H PRN vial 11/08/19 Pantoprazole Sodium [Protonix -] 40 mg PO DAILY tablet.ec 11/08/19 - Discharge Referral Referred to [facility] No ATTENDING PHYSICIAN STATEMENT I saw and evaluated the patient. I reviewed the resident's note and discussed the case with the resident. I agree with the resident's findings and plan as documented. SUBJECTIVE: OBJECTIVE: ASSESSMENT AND PLAN:
[2019-11-08] MEDS: SODIUM CHLORIDE 0.45% 1,000 ML IV SCH (11:48)
[2019-11-08] MEDS: ONDANSETRON 4 MG/2 ML VIAL IVPUSH PRN ×2 (11:58→21:03)
--- NOTE | 2019-11-08 12:44 | PN ---
Progress Note, Physician History of Present Illness: stable no new issues - Current Medication List Current Medications: Active Medications Acetaminophen (Ofirmev Injection -) 1,000 mg IVPB Q6H PRN PRN Reason: PAIN LEVEL 1-5 Last Admin: 11/05/19 18:16 Dose: 1,000 mg Docusate Sodium (Colace -) 100 mg PO Q8H PRN PRN Reason: CONSTIPATION Enalapril Maleate (Vasotec -) 10 mg PO DAILY [facility] Last Admin: 11/08/19 11:38 Dose: 10 mg Heparin Sodium (Porcine) (Heparin -) 5,000 unit SQ TID [facility] Last Admin: 11/08/19 06:01 Dose: 5,000 unit Hydrochlorothiazide (Hctz -) 12.5 mg PO DAILY [facility] Last Admin: 11/08/19 11:38 Dose: 12.5 mg Sodium Chloride (1/2 Normal Saline) 1,000 mls @ 75 mls/hr IV ASDIR [facility] Last Admin: 11/08/19 11:48 Dose: 75 mls/hr Levothyroxine Sodium (Synthroid -) 150 mcg PO DAILY@0700 [facility] Last Admin: 11/08/19 06:01 Dose: 150 mcg Lorazepam (Ativan Injection -) 0.5 mg IVPUSH Q6H PRN PRN Reason: ANXIETY Last Admin: 11/07/19 23:32 Dose: 0.5 mg Ondansetron HCl (Zofran Injection) 4 mg IVPUSH Q8H PRN PRN Reason: NAUSEA Last Admin: 11/08/19 11:58 Dose: 4 mg Pantoprazole Sodium (Protonix -) 40 mg PO DAILY [facility] Last Admin: 11/08/19 11:38 Dose: 40 mg - Objective Vital Signs: Vital Signs Temperature 98.2 F 11/08/19 06:00 Pulse Rate 96 H 11/08/19 06:00 Respiratory Rate 18 11/08/19 06:00 Blood Pressure 138/98 11/08/19 06:00 O2 Sat by Pulse Oximetry (%) 98 11/07/19 21:00 Constitutional: Yes: No Distress, Calm Cardiovascular: Yes: S1, S2 Respiratory: Yes: Regular, CTA Bilaterally Gastrointestinal: Yes: Normal Bowel Sounds, Soft Musculoskeletal: Yes: WNL Extremities: Yes: Other Neurological: Yes: Alert Labs: CBC, BMP 11/08/19 06:05 11/08/19 06:05 Assessment/Plan Problem List - Problems (1) Fever Code(s): R50.9 - FEVER, UNSPECIFIED Qualifiers: Fever type: unspecified Qualified Code(s): R50.9 - Fever, unspecified (2) Gram-positive cocci in clusters Code(s): R68.89 - OTHER GENERAL SYMPTOMS AND SIGNS (3) Tachycardia Code(s): R00.0 - TACHYCARDIA, UNSPECIFIED (4) Abscess Code(s): L02.91 - CUTANEOUS ABSCESS, UNSPECIFIED (5) Cellulitis Code(s): L03.90 - CELLULITIS, UNSPECIFIED (6) Cerebral palsy Code(s): G80.9 - CEREBRAL PALSY, UNSPECIFIED (7) Elevated lactic acid level Code(s): R79.89 - OTHER SPECIFIED ABNORMAL FINDINGS OF BLOOD CHEMISTRY plan trough noted vanco suspended repeat vanco level once we have repeat vanco levels then we will decide further plan will need vanco for a total of 15 days
[2019-11-08] MEDS: ACETAMINOPHEN 1000 MG/100 ML VIAL (NON FORMULARY) IVPB PRN (13:58)
[2019-11-08] MEDS: LORazepam 2 MG/ML SDV VIAL IVPUSH PRN ×2 (14:24→21:49)
[2019-11-08] MEDS ORDERED: ONDANSETRON 4 MG/2 ML VIAL IVPUSH ONE (15:00)
--- NOTE | 2019-11-08 16:04 | PN.GI ---
GI Progress Note Subjective: Recalled by durable medical equipment repairer to evaluate vomiting. Vomited last night per his mother and today. Currently not vomiting No further work-up initiated as of yet - Objective Vital Signs: Vital Signs Temperature 98.2 F 11/08/19 15:09 Pulse Rate 108 H 11/08/19 15:09 Respiratory Rate 18 11/08/19 15:09 Blood Pressure 150/90 11/08/19 15:09 O2 Sat by Pulse Oximetry (%) 98 11/07/19 21:00 Constitutional: Calm Eyes: No: Sclera Icterus Cardiovascular: Yes: Regular Rate and Rhythm Respiratory: Yes: CTA Bilaterally Gastrointestinal Inspection: No: Distention ...Auscultate: Yes: Normoactive Bowel Sounds ...Palpate: Yes: Tenderness (TTP mid upper abdomen and RUQ) ...Percussion: No: Tympanitic Edema: No (No LE edema) Neurological: Yes: Alert Labs: CBC, BMP 11/08/19 06:05 11/08/19 06:05 Problem List - Problems (1) Vomiting Assessment/Plan: Continues: ? if this is related to anxiety, medications Advise: CT scan of the A/P with PO contrast (ordered) Pending findings and clinical course, discussed possible upper endoscopy for further intraluminal evaluation with Miguelito's mother. Wed discussed potential risks of the procedure like but not limited to bleeding, perforation requiring surgery to repair, infection, sedation medication effects all of which could be potentially life threatening. She is hesitant to have Miguelito undergo invasive testing. Will see what the CT scan shows and if he responds to conservative measures Continue protonix for now Code(s): R11.10 - VOMITING, UNSPECIFIED (2) Transaminitis Assessment/Plan: Question if medication related. (ie heparin, Abx, IV tylenol, last dose of which was yesterday) ? if related to current episodes of N/V and upper abdominal pain Screening hepatitis serologies (elevated on admission) Avoid hepatotoxic agents Await CT scan Code(s): R74.0 - NONSPEC ELEV OF LEVELS OF TRANSAMNS & LACTIC ACID DEHYDRGNSE
--- NOTE | 2019-11-08 16:23 | PN ---
Teaching Attending Note Name of Resident: Roxane Reich ATTENDING PHYSICIAN STATEMENT I saw and evaluated the patient. I reviewed the resident's note and discussed the case with the resident. I agree with the resident's findings and plan as documented. SUBJECTIVE: Seen and examined at bedside. Patient vomiting post meals. OBJECTIVE: Vital Signs - 24 hr 11/07/19 11/07/19 11/07/19 18:00 21:00 22:00 Temperature 98.2 F 98.5 F Pulse Rate 114 H 99 H Respiratory 20 20 Rate Blood Pressure 161/99 150/83 O2 Sat by Pulse 98 Oximetry (%) 11/08/19 11/08/19 11/08/19 06:00 15:07 15:09 Temperature 98.2 F 98.2 F 98.2 F Pulse Rate 96 H 108 H 108 H Respiratory 18 18 18 Rate Blood Pressure 138/98 150/90 150/90 O2 Sat by Pulse Oximetry (%) PE: Constitutional: NAD Cardiovascular: RRR Respiratory: WNL, Regular, CTA Bilaterally Gastrointestinal: WNL, Normal Bowel Sounds, Soft Musculoskeletal: WNL Extremities: left hip lesion, dry, non draining Edema: No Current Medications Docusate Sodium (Colace -) 100 mg PO Q8H PRN PRN Reason: CONSTIPATION Enalapril Maleate (Vasotec -) 10 mg PO DAILY [facility] Last Admin: 11/08/19 11:38 Dose: 10 mg Heparin Sodium (Porcine) (Heparin -) 5,000 unit SQ TID [facility] Last Admin: 11/08/19 14:24 Dose: 5,000 unit Hydrochlorothiazide (Hctz -) 12.5 mg PO DAILY [facility] Last Admin: 11/08/19 11:38 Dose: 12.5 mg Sodium Chloride (1/2 Normal Saline) 1,000 mls @ 75 mls/hr IV ASDIR [facility] Last Admin: 11/08/19 11:48 Dose: 75 mls/hr Levothyroxine Sodium (Synthroid -) 150 mcg PO DAILY@0700 [facility] Last Admin: 11/08/19 06:01 Dose: 150 mcg Lorazepam (Ativan Injection -) 0.5 mg IVPUSH Q6H PRN PRN Reason: ANXIETY Last Admin: 11/08/19 14:24 Dose: 0.5 mg Ondansetron HCl (Zofran Injection) 4 mg IVPUSH Q8H PRN PRN Reason: NAUSEA Last Admin: 11/08/19 11:58 Dose: 4 mg Pantoprazole Sodium (Protonix -) 40 mg PO DAILY [facility] Last Admin: 11/08/19 11:38 Dose: 40 mg Laboratory Results - last 24 hr 11/08/19 11/08/19 11/08/19 06:05 06:05 12:32 WBC 4.0 RBC 5.37 Hgb 16.4 Hct 48.5 MCV 90.3 MCH 30.6 MCHC 33.9 RDW 12.7 Plt Count 312 MPV 7.8 Absolute Neuts (auto) 1.1 L Neutrophils % 27.5 L D Neutrophils % (Manual) 35.0 L D Band Neutrophils % 0.0 Lymphocytes % 42.4 H D Lymphocytes % (Manual) 42.7 H D Monocytes % 21.7 H Monocytes % (Manual) 16 H Eosinophils % 8.1 H Eosinophils % (Manual) 5.8 H D Basophils % 0.3 Basophils % (Manual) 1.0 D Myelocytes % (Man) 0 Promyelocytes % (Man) 0 Blast Cells % (Manual) 0 Nucleated RBC % 0 Metamyelocytes 0 Hypochromia 0 Platelet Estimate Normal Polychromasia 0 Poikilocytosis 0 Anisocytosis 0 Microcytosis 0 Macrocytosis 0 Sodium 140 Potassium 4.1 Chloride 100 Carbon Dioxide 34 H Anion Gap 6 L BUN 19.1 H Creatinine 1.6 H Est GFR (CKD-EPI)AfAm 69.35 Est GFR (CKD-EPI)NonAf 59.83 Random Glucose 94 Calcium 9.7 Total Bilirubin 0.6 AST 78 H ALT 86 H Alkaline Phosphatase 105 Total Protein 8.3 H Albumin 3.9 Random Vancomycin 7.6 L Microbiology 11/05/19 16:03 Hip - Left Gram Stain - Final 11/05/19 16:03 Hip - Left Wound Culture - Final S Aureus 11/04/19 01:30 Blood - Peripheral Venous Blood Culture - Preliminary NO GROWTH OBTAINED AFTER 96 HOURS, INCUBATION TO CONTINUE FOR 1 DAYS. 11/04/19 01:30 Blood - Peripheral Venous Blood Culture - Preliminary NO GROWTH OBTAINED AFTER 96 HOURS, INCUBATION TO CONTINUE FOR 1 DAYS. ASSESSMENT: Sepsis MRSA bacteremia Left hip abscess HTN Hypothyroidism Cerebral Palsy Resolved Hematemesis Plan: MRSA bacteremia, wound cx MRSA c/w IV vanco repeat blood cultures neg to date transaminitis, vomiting post meals ct abdomen ordered back to clears cw BP meds cw synthroid PPI 6-8 wks GI eval ID eval Problem List - Problems (1) Fever Code(s): R50.9 - FEVER, UNSPECIFIED Qualifiers: Fever type: unspecified Qualified Code(s): R50.9 - Fever, unspecified (2) Gram-positive cocci in clusters Code(s): R68.89 - OTHER GENERAL SYMPTOMS AND SIGNS (3) Tachycardia Code(s): R00.0 - TACHYCARDIA, UNSPECIFIED (4) Abscess Code(s): L02.91 - CUTANEOUS ABSCESS, UNSPECIFIED (5) Cellulitis Code(s): L03.90 - CELLULITIS, UNSPECIFIED (6) Cerebral palsy Code(s): G80.9 - CEREBRAL PALSY, UNSPECIFIED (7) Elevated lactic acid level Code(s): R79.89 - OTHER SPECIFIED ABNORMAL FINDINGS OF BLOOD CHEMISTRY
[2019-11-08] MEDS ORDERED: ACETAMINOPHEN 325 MG TABLET (FP) PO PRN (16:32)
[2019-11-08] MEDS ORDERED: VANCOMYCIN HCL 1,250 MG in DEXTROSE 5%-WATER - 250 ML IVPB ONE (17:30)
[2019-11-09] MEDS: HEPARIN NA (PORCINE) 5,000 UNITS/ML 1ML VIAL SQ SCH ×3 (05:18→21:14)
[2019-11-09] MEDS: LEVOTHYROXINE NA 150 MCG TABLET PO SCH (06:01)
[2019-11-09 07:48] LABS: BASO % 0.1 % (0-2.0); EOS % 2.9 % (0-4.5); HEMATOCRIT 43.2 % (35.4-49); HEMOGLOBIN 14.9 GM/dL (11.7-16.9); LYMPH % 15.5 % (8-40); MCH 30.7 pg (25.7-33.7); MCHC 34.4 g/dl (32.0-35.9); MEAN CELL VOLUME 89.3 fl (80-96); MEAN PLT VOLUME 7.6 fl (7.5-11.1); MONO % 10.1 % (3.8-10.2); NEUT % 71.4 % (42.8-82.8); PLATELET COUNT 275 K/MM3 (134-434); RBC 4.84 M/mm3 (4.00-5.60); RDW 12.7 % (11.9-15.9)
[2019-11-09 08:14] LABS: ALBUMIN 3.6 g/dl (3.4-5.0); BILIRUBIN,TOTAL 0.7 mg/dL (0.2-1); BLOOD UREA NITROGEN 17.4 mg/dL (7-18); CALCIUM 9.1 mg/dL (8.5-10.1); CREATININE 1.5 mg/dL (0.55-1.3); TOT PROT 7.2 g/dl (6.4-8.2)
[2019-11-09] MEDS: LORazepam 2 MG/ML SDV VIAL IVPUSH PRN (09:42)
[2019-11-09] MEDS: SODIUM CHLORIDE 0.45% 1,000 ML IV SCH (09:44)
[2019-11-09] MEDS: ENALAPRIL MALEATE 10 MG TABLET (FP) PO SCH (10:35)
[2019-11-09] MEDS: HYDROCHLOROTHIAZIDE 12.5 MG CAPSULE (FP) PO SCH (10:35)
[2019-11-09] MEDS: PANTOPRAZOLE 40 MG TABLET PO SCH (10:35)
[2019-11-09] MEDS ORDERED: BISACODYL 5 MG TABLET.DR (FP) PO ONE (11:42)
--- NOTE | 2019-11-09 12:07 | PN ---
Teaching Attending Note Name of Resident: Roxane Reich ATTENDING PHYSICIAN STATEMENT I saw and evaluated the patient. I reviewed the resident's note and discussed the case with the resident. I agree with the resident's findings and plan as documented. SUBJECTIVE: He still complains of abdominal pain which is constant. OBJECTIVE: In no distress MMM CVS:S1S2 CTAB Abd: BS+, abdomen is soft, has mild generalized tenderness Vital Signs - 24 hr 11/08/19 11/08/19 11/08/19 15:07 15:09 18:00 Temperature 98.2 F 98.2 F 99 F Pulse Rate 108 H 108 H 101 H Respiratory 18 18 18 Rate Blood Pressure 150/90 150/90 161/98 O2 Sat by Pulse Oximetry (%) 11/08/19 11/08/19 11/09/19 21:00 22:00 06:00 Temperature 98.9 F 98.8 F Pulse Rate 99 H 110 H Respiratory 18 18 Rate Blood Pressure 149/87 128/89 O2 Sat by Pulse 98 Oximetry (%) CBCD WBC 8.0 K/mm3 (4.0-10.0) 11/09/19 06:45 RBC 4.84 M/mm3 (4.00-5.60) 11/09/19 06:45 Hgb 14.9 GM/dL (11.7-16.9) 11/09/19 06:45 Hct 43.2 % (35.4-49) 11/09/19 06:45 MCV 89.3 fl (80-96) 11/09/19 06:45 MCHC 34.4 g/dl (32.0-35.9) 11/09/19 06:45 RDW 12.7 % (11.9-15.9) 11/09/19 06:45 Plt Count 275 K/MM3 (134-434) 11/09/19 06:45 MPV 7.6 fl (7.5-11.1) 11/09/19 06:45 CMP Sodium 137 mmol/L (136-145) 11/09/19 06:45 Potassium 4.0 mmol/L (3.5-5.1) 11/09/19 06:45 Chloride 99 mmol/L (98-107) 11/09/19 06:45 Carbon Dioxide 34 mmol/L (21-32) H 11/09/19 06:45 Anion Gap 4 MMOL/L (8-16) L 11/09/19 06:45 BUN 17.4 mg/dL (7-18) 11/09/19 06:45 Creatinine 1.5 mg/dL (0.55-1.3) H 11/09/19 06:45 Random Glucose 87 mg/dL (74-106) 11/09/19 06:45 Calcium 9.1 mg/dL (8.5-10.1) 11/09/19 06:45 Total Bilirubin 0.7 mg/dL (0.2-1) 11/09/19 06:45 AST 69 U/L (15-37) H 11/09/19 06:45 ALT 86 U/L (13-61) H 11/09/19 06:45 Alkaline Phosphatase 93 U/L (45-117) 11/09/19 06:45 Total Protein 7.2 g/dl (6.4-8.2) 11/09/19 06:45 Albumin 3.6 g/dl (3.4-5.0) 11/09/19 06:45 ASSESSMENT AND PLAN: Imaging was reviewed has no abnormalities other than fecal impaction, Will give more aggressive bowel regimen including water enema and will monitor the response. will F/u with GI for recs. ID recs reviewed and their recs appreciated
--- NOTE | 2019-11-09 12:24 | PN ---
Progress Note, Physician History of Present Illness: patient stable ct scan noted vanco trough noted - Current Medication List Current Medications: Active Medications Acetaminophen (Tylenol -) 650 mg PO Q4H PRN PRN Reason: PAIN 1-5 Docusate Sodium (Colace -) 100 mg PO Q8H PRN PRN Reason: CONSTIPATION Enalapril Maleate (Vasotec -) 10 mg PO DAILY [facility] Last Admin: 11/09/19 10:35 Dose: 10 mg Heparin Sodium (Porcine) (Heparin -) 5,000 unit SQ TID [facility] Last Admin: 11/09/19 05:18 Dose: 5,000 unit Hydrochlorothiazide (Hctz -) 12.5 mg PO DAILY [facility] Last Admin: 11/09/19 10:35 Dose: 12.5 mg Sodium Chloride (1/2 Normal Saline) 1,000 mls @ 75 mls/hr IV ASDIR [facility] Last Admin: 11/09/19 09:44 Dose: 75 mls/hr Levothyroxine Sodium (Synthroid -) 150 mcg PO DAILY@0700 [facility] Last Admin: 11/09/19 06:01 Dose: 150 mcg Lorazepam (Ativan Injection -) 0.5 mg IVPUSH Q6H PRN PRN Reason: ANXIETY Last Admin: 11/09/19 09:42 Dose: 0.5 mg Ondansetron HCl (Zofran Injection) 4 mg IVPUSH Q8H PRN PRN Reason: NAUSEA Last Admin: 11/08/19 21:03 Dose: 4 mg Pantoprazole Sodium (Protonix -) 40 mg PO DAILY [facility] Last Admin: 11/09/19 10:35 Dose: 40 mg - Objective Vital Signs: Vital Signs Temperature 98.8 F 11/09/19 06:00 Pulse Rate 110 H 11/09/19 06:00 Respiratory Rate 18 11/09/19 06:00 Blood Pressure 128/89 11/09/19 06:00 O2 Sat by Pulse Oximetry (%) 98 11/08/19 21:00 Constitutional: Yes: No Distress, Calm Cardiovascular: Yes: S1, S2 Respiratory: Yes: Regular, CTA Bilaterally Gastrointestinal: Yes: Normal Bowel Sounds, Soft Musculoskeletal: Yes: WNL Extremities: Yes: WNL Neurological: Yes: Alert, Other Psychiatric: Yes: Alert Labs: CBC, BMP 11/09/19 06:45 11/09/19 06:45 Assessment/Plan Problem List - Problems (1) Fever Code(s): R50.9 - FEVER, UNSPECIFIED Qualifiers: Fever type: unspecified Qualified Code(s): R50.9 - Fever, unspecified (2) Gram-positive cocci in clusters Code(s): R68.89 - OTHER GENERAL SYMPTOMS AND SIGNS (3) Tachycardia Code(s): R00.0 - TACHYCARDIA, UNSPECIFIED (4) Abscess Code(s): L02.91 - CUTANEOUS ABSCESS, UNSPECIFIED (5) Cellulitis Code(s): L03.90 - CELLULITIS, UNSPECIFIED (6) Cerebral palsy Code(s): G80.9 - CEREBRAL PALSY, UNSPECIFIED (7) Elevated lactic acid level Code(s): R79.89 - OTHER SPECIFIED ABNORMAL FINDINGS OF BLOOD CHEMISTRY plan will start vanco complete a 15 day course since the beginning
[2019-11-09] MEDS: VANCOMYCIN HCL 1,500 MG in DEXTROSE 5%-WATER - 500 ML IVPB SCH (13:25)
--- NOTE | 2019-11-09 17:03 | PN.GI ---
GI Progress Note Subjective: CT scan was limited as there was motion artifact. Rectal fecal impaction noted. Given enema with large BM today. Seems to get anxious and startes coughing and gagging when caregivers enter the room. No vomiting today For some reason, acetaminopehn was again reordered - Objective Vital Signs: Vital Signs Temperature 98.9 F 11/09/19 14:18 Pulse Rate 108 H 11/09/19 14:18 Respiratory Rate 20 11/09/19 14:18 Blood Pressure 135/73 11/09/19 14:18 O2 Sat by Pulse Oximetry (%) 98 11/09/19 09:00 Constitutional: Anxious Cardiovascular: Yes: Regular Rate and Rhythm Respiratory: Yes: Diminished (at bases bilaterally with poor insp effort) Gastrointestinal Inspection: No: Distention ...Auscultate: Yes: Normoactive Bowel Sounds ...Palpate: Yes: Soft. No: Hepatomegaly, Splenomegaly, Tenderness ...Percussion: No: Tympanitic Edema: No (No LE edema) Neurological: Yes: Alert Labs: CBC, BMP 11/09/19 06:45 11/09/19 06:45 Hepatic Panel Total Bilirubin 0.7 mg/dL (0.2-1) 11/09/19 06:45 AST 69 U/L (15-37) H 11/09/19 06:45 ALT 86 U/L (13-61) H 11/09/19 06:45 Alkaline Phosphatase 93 U/L (45-117) 11/09/19 06:45 Albumin 3.6 g/dl (3.4-5.0) 11/09/19 06:45 Problem List - Problems (1) Vomiting Assessment/Plan: No further vomiting. the patient seems to get extremly anxious when caregivers enter the room. he started to gag and cough / hold his breath. Patient had a fecal impaction of the rectum. Needs to be on a bowel regimen. Mineral oil enema daily for three days, MiraLAX 17g BID. Can contribute to nausea and vomiting. Code(s): R11.10 - VOMITING, UNSPECIFIED (2) Transaminitis Assessment/Plan: I discontinued acetaminophen again I ordered and abdominal US I ordered screening hepatitis serologies Avoid hepatotoxic agents Follow liver chemistries Check CPK to exclude rhabdo Code(s): R74.0 - NONSPEC ELEV OF LEVELS OF TRANSAMNS & LACTIC ACID DEHYDRGNSE
--- NOTE | 2019-11-09 18:35 | PN ---
Physical Exam: SUBJECTIVE: Patient seen and examined. no vomiting today. patient continues to complain of abdominal pain. When talking with patient, he appeared anxious and started gagging. Did not vomit. OBJECTIVE: Vital Signs Period Temp Pulse Resp BP Sys/Hubbard Pulse Ox Last 24 Hr 98.2 F-98.9 F 99-111 18-22 128-149/73-98 98-98 GENERAL: anxious today EYES: PERRL ENT: moist mucous membranes. NECK: supple. LUNGS: Breath sounds equal, clear to auscultation bilaterally HEART: Regular rate and rhythm, S1, S2 without murmur, rub or gallop. ABDOMEN: Soft, diffuse tender to palpation EXTREMITIES: 2+ pulses, no edema, left hip abscess, quarter sized, dry. no purulent discharge Laboratory Results - last 24 hr 11/09/19 11/09/19 06:45 06:45 WBC 8.0 RBC 4.84 Hgb 14.9 Hct 43.2 MCV 89.3 MCH 30.7 MCHC 34.4 RDW 12.7 Plt Count 275 MPV 7.6 Absolute Neuts (auto) 5.7 Neutrophils % 71.4 D Lymphocytes % 15.5 D Monocytes % 10.1 Eosinophils % 2.9 Basophils % 0.1 Nucleated RBC % 0 Sodium 137 Potassium 4.0 Chloride 99 Carbon Dioxide 34 H Anion Gap 4 L BUN 17.4 Creatinine 1.5 H Est GFR (CKD-EPI)AfAm 74.98 Est GFR (CKD-EPI)NonAf 64.69 Random Glucose 87 Calcium 9.1 Total Bilirubin 0.7 AST 69 H ALT 86 H Alkaline Phosphatase 93 Total Protein 7.2 Albumin 3.6 Active Medications Generic Name Dose Route Start Last Admin Trade Name Freq PRN Reason Stop Dose Admin Docusate Sodium 100 mg 11/04/19 04:51 Colace - PO Q8H PRN CONSTIPATION Enalapril Maleate 10 mg 11/06/19 10:00 11/09/19 10:35 Vasotec - PO 10 mg DAILY [facility] Administration Heparin Sodium (Porcine) 5,000 unit 11/06/19 14:00 11/09/19 13:25 Heparin - SQ 5,000 unit TID [facility] Administration Hydrochlorothiazide 12.5 mg 11/04/19 10:00 11/09/19 10:35 Hctz - PO 12.5 mg DAILY [facility] Administration Sodium Chloride 1,000 mls @ 75 mls/hr 11/08/19 09:45 11/09/19 09:44 1/2 Normal Saline IV 75 mls/hr ASDIR [facility] Administration Vancomycin HCl 1,500 mg/ 500 mls @ 250 mls/hr 11/09/19 13:00 11/09/19 13:25 Dextrose IVPB 250 mls/hr Q24H [facility] Administration Protocol Levothyroxine Sodium 150 mcg 11/04/19 07:00 11/09/19 06:01 Synthroid - PO 150 mcg DAILY@0700 [facility] Administration Lorazepam 0.5 mg 11/08/19 21:31 11/09/19 09:42 Ativan Injection - IVPUSH 0.5 mg Q6H PRN Administration ANXIETY Mineral Oil 133 ml 11/10/19 10:00 Fleet Mineral Oil Rectal Enema - CA 11/13/19 09:59 DAILY [facility] Ondansetron HCl 4 mg 11/04/19 18:09 11/08/19 21:03 Zofran Injection IVPUSH 4 mg Q8H PRN Administration NAUSEA Pantoprazole Sodium 40 mg 11/07/19 10:00 11/09/19 10:35 Protonix - PO 40 mg DAILY [facility] Administration Polyethylene Glycol 17 gm 11/09/19 22:00 Miralax (For Daily Use) - PO BID [facility] ASSESSMENT/PLAN: #Sepsis (tachypnea, tachycardia) secondary to MRSA bacteremia from left thigh abscess #MRSA bacteremia #Left hip abscess #Abd Pain #vomiting #transaminitis #COLLEEN #HTN #Hypothyroidism #Cerebral Palsy Plan: -no episodes of vomiting today but vomiting likely from anxiety. -CT with fecal impaction. enema given with large BM -dc tylenol. patient with transaminitis. -Abd US ordered -follow hep serologies -check am CPK -Abscess with mrsa -1st set blood cx + MRSA -repeat bcx cultures negative -IV vanco per ID -Cr with with minimal improvement. cont Iv fluids -follow up ID reccs -Echo unremarkable -pain control -protonix 40mg per GI. can continue for 6-8 weeks. -anxiolytics -cw BP meds -cw synthroid -clear liquid diet -dvt ppx hep sq Visit type - Emergency Visit Emergency Visit: Yes ED Registration Date: 11/04/19 Care time: The patient presented to the Emergency Department on the above date and was hospitalized for further evaluation of their emergent condition. - New Patient This patient is new to me today: Yes Date on this admission: 11/09/19 - Critical Care Critical Care patient: No ATTENDING PHYSICIAN STATEMENT I saw and evaluated the patient. I reviewed the resident's note and discussed the case with the resident. I agree with the resident's findings and plan as documented. SUBJECTIVE: OBJECTIVE: ASSESSMENT AND PLAN:
[2019-11-09] MEDS: POLYETHYLENE GLYCOL 3350 119 GM BTL PO SCH (21:14)
[2019-11-10] MEDS: HEPARIN NA (PORCINE) 5,000 UNITS/ML 1ML VIAL SQ SCH ×3 (06:08→21:32)
[2019-11-10] MEDS: LEVOTHYROXINE NA 150 MCG TABLET PO SCH (06:09)
[2019-11-10] MEDS: SODIUM CHLORIDE 0.45% 1,000 ML IV SCH ×2 (06:09→13:48)
[2019-11-10 08:45] LABS: BASO % 0.3 % (0-2.0); EOS % 6.7 % (0-4.5); HEMATOCRIT 43.1 % (35.4-49); HEMOGLOBIN 14.8 GM/dL (11.7-16.9); LYMPH % 25.8 % (8-40); MCH 30.7 pg (25.7-33.7); MCHC 34.4 g/dl (32.0-35.9); MEAN CELL VOLUME 89.2 fl (80-96); MEAN PLT VOLUME 7.7 fl (7.5-11.1); MONO % 12.1 % (3.8-10.2); NEUT % 55.1 % (42.8-82.8); PLATELET COUNT 271 K/MM3 (134-434); RBC 4.84 M/mm3 (4.00-5.60); RDW 12.4 % (11.9-15.9); WHITE BLOOD COUNT 4.8 K/mm3 (4.0-10.0)
[2019-11-10] MEDS ORDERED: PT OWN MED DRAWER 7, Y5N ONE (09:14)
[2019-11-10 09:21] LABS: ALBUMIN 3.7 g/dl (3.4-5.0); BILIRUBIN,DIRECT 0.3 mg/dL (0.0-0.2); BILIRUBIN,TOTAL 1.1 mg/dL (0.2-1); BLOOD UREA NITROGEN 12.2 mg/dL (7-18); CALCIUM 9.1 mg/dL (8.5-10.1); CREATININE 1.3 mg/dL (0.55-1.3); TOT PROT 7.4 g/dl (6.4-8.2)
[2019-11-10] MEDS: PANTOPRAZOLE 40 MG TABLET PO SCH (09:21)
[2019-11-10] MEDS: MINERAL OIL ENEMA 133 ML ENEMA PR SCH (09:21)
[2019-11-10] MEDS: HYDROCHLOROTHIAZIDE 12.5 MG CAPSULE (FP) PO SCH (09:21)
[2019-11-10] MEDS: ENALAPRIL MALEATE 10 MG TABLET (FP) PO SCH (09:21)
[2019-11-10] MEDS: POLYETHYLENE GLYCOL 3350 119 GM BTL PO SCH ×2 (09:22→21:32)
--- NOTE | 2019-11-10 12:45 | PN.GI ---
GI Progress Note Subjective: no episodes of vomiting, good response to Miralax and enemas, patient is hungry no episodes of vomiting today but vomiting likely from anxiety. CT with fecal impaction. enema given with large BM - Objective Vital Signs: Vital Signs Temperature 98.6 F 11/10/19 10:00 Pulse Rate 98 H 11/10/19 10:00 Respiratory Rate 18 11/10/19 10:00 Blood Pressure 152/90 11/10/19 10:00 O2 Sat by Pulse Oximetry (%) 98 11/10/19 09:00 Constitutional: Well Nourished Eyes: Yes: Conjunctiva Clear HENT: Yes: Atraumatic Cardiovascular: Yes: Regular Rate and Rhythm Respiratory: Yes: CTA Bilaterally ...Palpate: Yes: Soft. No: Firm/Rigid, Guarding, Hepatomegaly, Mass, Pulsatile Mass, Splenomegaly Labs: CBC, BMP 11/10/19 07:00 11/10/19 07:00 Problem List - Problems (1) Elevated liver enzymes Assessment/Plan: downward trend R>hep profile pending Code(s): R74.8 - ABNORMAL LEVELS OF OTHER SERUM ENZYMES (2) Vomiting Assessment/Plan: stable R> advance diet Reglan 5mg 30 min ac Code(s): R11.10 - VOMITING, UNSPECIFIED (3) Fecal impaction Assessment/Plan: Miralax 34 grams Code(s): K56.41 - FECAL IMPACTION
[2019-11-10] MEDS: VANCOMYCIN HCL 1,500 MG in DEXTROSE 5%-WATER - 500 ML IVPB SCH (13:48)
--- NOTE | 2019-11-10 14:52 | PN ---
Progress Note, Physician History of Present Illness: seen and examined. having bowel movements. no complaints. Creatinine improved. no vomiting. advanced to regular diet by GI. Repeat BCx negative so far. wound Cx MRSA positive. - Current Medication List Current Medications: Active Medications Docusate Sodium (Colace -) 100 mg PO Q8H PRN PRN Reason: CONSTIPATION Enalapril Maleate (Vasotec -) 10 mg PO DAILY [facility] Last Admin: 11/10/19 09:21 Dose: 10 mg Heparin Sodium (Porcine) (Heparin -) 5,000 unit SQ TID [facility] Last Admin: 11/10/19 13:48 Dose: 5,000 unit Hydrochlorothiazide (Hctz -) 12.5 mg PO DAILY [facility] Last Admin: 11/10/19 09:21 Dose: 12.5 mg Vancomycin HCl 1,500 mg/ (Dextrose) 500 mls @ 250 mls/hr IVPB Q24H [facility]; Protocol Last Admin: 11/10/19 13:48 Dose: 250 mls/hr Levothyroxine Sodium (Synthroid -) 150 mcg PO DAILY@0700 [facility] Last Admin: 11/10/19 06:09 Dose: 150 mcg Lorazepam (Ativan Injection -) 0.5 mg IVPUSH Q6H PRN PRN Reason: ANXIETY Last Admin: 11/09/19 09:42 Dose: 0.5 mg Metoclopramide HCl (Reglan -) 5 mg PO TIDAC [facility] Mineral Oil (Fleet Mineral Oil Rectal Enema -) 133 ml IN DAILY [facility] Stop: 11/13/19 09:59 Last Admin: 11/10/19 09:21 Dose: Not Given Ondansetron HCl (Zofran Injection) 4 mg IVPUSH Q8H PRN PRN Reason: NAUSEA Last Admin: 11/08/19 21:03 Dose: 4 mg Pantoprazole Sodium (Protonix -) 40 mg PO DAILY [facility] Last Admin: 11/10/19 09:21 Dose: 40 mg Polyethylene Glycol (Miralax (For Daily Use) -) 17 gm PO BID [facility] Last Admin: 11/10/19 09:22 Dose: Not Given - Objective Vital Signs: Vital Signs Temperature 98.5 F 11/10/19 14:05 Pulse Rate 99 H 11/10/19 14:05 Respiratory Rate 18 11/10/19 14:05 Blood Pressure 135/89 11/10/19 14:05 O2 Sat by Pulse Oximetry (%) 98 11/10/19 09:00 Constitutional: Yes: Well Nourished, No Distress, Calm Eyes: Yes: EOM Intact Neck: Yes: Supple Cardiovascular: Yes: Regular Rate and Rhythm Respiratory: Yes: CTA Bilaterally Gastrointestinal: Yes: Normal Bowel Sounds, Soft. No: Tenderness Edema: No Neurological: Yes: Alert Psychiatric: Yes: Alert, Other (follows simple commands and answers simple questions. When i asked him where he is he said at the doctor's.) Labs: CBC, BMP 11/10/19 07:00 11/10/19 07:00 - ....Imaging Ultrasound: Report Reviewed (no acute issues) Impression/Plan Impression/Plan: 24M with cerebral palsy s/p thigh abscess drainage on left called back because of MRSA positive BCx. Repeat no growth so far. Sepsis secondary to MRSA bacteremia from left thigh abscess continue vancomycin per ID Abd Pain/vomiting/Fecal impaction resolved having BMs advance diet per GI Reglan 30 mins before meals PPI continue bowel regimen transaminitis LFTs trending down f/u hepatitis panel COLLEEN creatinine 1.3 today from 1.6 stop IVF as he is eating and drinking well HTN continue HCTZ and vasotec Hypothyroidism continue synthroid Cerebral Palsy Anxiety/agitation ativan PRN DVT PPx PPI Visit type - Emergency Visit Emergency Visit: Yes ED Registration Date: 11/04/19 Care time: The patient presented to the Emergency Department on the above date and was hospitalized for further evaluation of their emergent condition. - New Patient This patient is new to me today: Yes Date on this admission: 11/10/19 - Critical Care Critical Care patient: No
--- NOTE | 2019-11-10 17:15 | PN ---
Progress Note, Physician History of Present Illness: Pt is alert and afebrile. Denies pain. Had BMs. - Current Medication List Current Medications: Active Medications Docusate Sodium (Colace -) 100 mg PO Q8H PRN PRN Reason: CONSTIPATION Enalapril Maleate (Vasotec -) 10 mg PO DAILY [facility] Last Admin: 11/10/19 09:21 Dose: 10 mg Heparin Sodium (Porcine) (Heparin -) 5,000 unit SQ TID [facility] Last Admin: 11/10/19 13:48 Dose: 5,000 unit Hydrochlorothiazide (Hctz -) 12.5 mg PO DAILY [facility] Last Admin: 11/10/19 09:21 Dose: 12.5 mg Vancomycin HCl 1,500 mg/ (Dextrose) 500 mls @ 250 mls/hr IVPB Q24H [facility]; Protocol Last Admin: 11/10/19 13:48 Dose: 250 mls/hr Levothyroxine Sodium (Synthroid -) 150 mcg PO DAILY@0700 [facility] Last Admin: 11/10/19 06:09 Dose: 150 mcg Lorazepam (Ativan Injection -) 0.5 mg IVPUSH Q6H PRN PRN Reason: ANXIETY Last Admin: 11/09/19 09:42 Dose: 0.5 mg Metoclopramide HCl (Reglan -) 5 mg PO TIDAC [facility] Mineral Oil (Fleet Mineral Oil Rectal Enema -) 133 ml [place] DAILY [facility] Stop: 11/13/19 09:59 Last Admin: 11/10/19 09:21 Dose: Not Given Ondansetron HCl (Zofran Injection) 4 mg IVPUSH Q8H PRN PRN Reason: NAUSEA Last Admin: 11/08/19 21:03 Dose: 4 mg Pantoprazole Sodium (Protonix -) 40 mg PO DAILY [facility] Last Admin: 11/10/19 09:21 Dose: 40 mg Polyethylene Glycol (Miralax (For Daily Use) -) 17 gm PO BID [facility] Last Admin: 11/10/19 09:22 Dose: Not Given - Objective Vital Signs: Vital Signs Temperature 98.5 F 11/10/19 14:05 Pulse Rate 99 H 11/10/19 14:05 Respiratory Rate 18 11/10/19 14:05 Blood Pressure 135/89 11/10/19 14:05 O2 Sat by Pulse Oximetry (%) 98 11/10/19 09:00 Constitutional: Yes: No Distress, Calm Cardiovascular: Yes: Regular Rate and Rhythm Respiratory: Yes: Regular Gastrointestinal: Yes: Normal Bowel Sounds, Soft Wound/Incision: Yes: Dressing Dry and Intact Neurological: Yes: Alert Labs: CBC, BMP 11/10/19 07:00 11/10/19 07:00 Microbiology 11/04/19 01:30 Blood - Peripheral Venous Blood Culture - Final NO GROWTH AFTER 5 DAYS INCUBATION 11/04/19 01:30 Blood - Peripheral Venous Blood Culture - Final NO GROWTH AFTER 5 DAYS INCUBATION 11/05/19 16:03 Hip - Left Gram Stain - Final 11/05/19 16:03 Hip - Left Wound Culture - Final S Aureus 11/05/19 18:45 Urine - Urine Clean Catch Urine Culture - Final NO GROWTH OBTAINED - ....Imaging Cat Scan: Report Reviewed Problem List - Problems (1) Elevated liver enzymes Code(s): R74.8 - ABNORMAL LEVELS OF OTHER SERUM ENZYMES (2) Fecal impaction Code(s): K56.41 - FECAL IMPACTION (3) Fever Code(s): R50.9 - FEVER, UNSPECIFIED Qualifiers: Fever type: unspecified Qualified Code(s): R50.9 - Fever, unspecified (4) MRSA (methicillin resistant staph aureus) culture positive Code(s): Z22.322 - CARRIER OR SUSPECTED CARRIER OF METHICILLIN RESIS STAPH (5) Transaminitis Code(s): R74.0 - NONSPEC ELEV OF LEVELS OF TRANSAMNS & LACTIC ACID DEHYDRGNSE (6) Abscess Code(s): L02.91 - CUTANEOUS ABSCESS, UNSPECIFIED (7) Cerebral palsy Code(s): G80.9 - CEREBRAL PALSY, UNSPECIFIED Assessment/Plan Lt hip abscess s/p I+D/ MRSA Bacteremia Cerebral palsy COLLEEN resolved -- continue Vancomycin and monitor renal function -- dose adjusted, will repeat Vancomycin trough prior to 4th dose -- latest blood cultures no growth -- continue wound care Currently stable
[2019-11-10] MEDS: METOCLOPRAMIDE HCL 10 MG TABLET (FP) PO SCH (17:20)
[2019-11-11] MEDS: METOCLOPRAMIDE HCL 10 MG TABLET (FP) PO SCH ×3 (06:01→16:52)
[2019-11-11] MEDS: HEPARIN NA (PORCINE) 5,000 UNITS/ML 1ML VIAL SQ SCH ×3 (06:01→21:08)
[2019-11-11] MEDS: LEVOTHYROXINE NA 150 MCG TABLET PO SCH (06:01)
[2019-11-11 07:57] LABS: BASO % 0.1 % (0-2.0); EOS % 5.2 % (0-4.5); HEMATOCRIT 42.1 % (35.4-49); HEMOGLOBIN 14.5 GM/dL (11.7-16.9); LYMPH % 29.4 % (8-40); MCH 30.5 pg (25.7-33.7); MCHC 34.4 g/dl (32.0-35.9); MEAN CELL VOLUME 88.6 fl (80-96); MEAN PLT VOLUME 8.1 fl (7.5-11.1); MONO % 12.3 % (3.8-10.2); PLATELET COUNT 284 K/MM3 (134-434); RBC 4.76 M/mm3 (4.00-5.60); RDW 12.7 % (11.9-15.9); WHITE BLOOD COUNT 6.6 K/mm3 (4.0-10.0)
[2019-11-11 08:33] LABS: ALBUMIN 3.7 g/dl (3.4-5.0); BILIRUBIN,TOTAL 0.5 mg/dL (0.2-1); BLOOD UREA NITROGEN 14.2 mg/dL (7-18); CALCIUM 9.3 mg/dL (8.5-10.1); CREATININE 1.4 mg/dL (0.55-1.3); TOT PROT 7.6 g/dl (6.4-8.2)
--- NOTE | 2019-11-11 10:17 | PN.GI ---
GI Progress Note Subjective: did well yesterday with Pantoprazole and Reglan. He vomited after breakfast and now complaining of epigastric pain - Objective Vital Signs: Vital Signs Temperature 98.6 F 11/11/19 08:57 Pulse Rate 96 H 11/11/19 08:57 Respiratory Rate 11/11/19 08:57 Blood Pressure 134/92 11/11/19 08:57 O2 Sat by Pulse Oximetry (%) 98 11/10/19 21:00 Constitutional: Well Nourished Eyes: Yes: Conjunctiva Clear HENT: Yes: Atraumatic Neck: Yes: Supple Cardiovascular: Yes: Regular Rate and Rhythm Respiratory: Yes: CTA Bilaterally ...Palpate: Yes: Soft, Tenderness, Epigastium. No: Firm/Rigid, Guarding, Hepatomegaly, Mass, Pulsatile Mass, Splenomegaly, Tenderness ...Percussion: Yes: Tympanitic Labs: CBC, BMP 11/11/19 06:42 11/11/19 06:42 Problem List - Problems (1) Elevated liver enzymes Code(s): R74.8 - ABNORMAL LEVELS OF OTHER SERUM ENZYMES (2) Vomiting Code(s): R11.10 - VOMITING, UNSPECIFIED (3) Fecal impaction Code(s): K56.41 - FECAL IMPACTION (4) Epigastric pain Assessment/Plan: R> add simethicone continue Reglan and Pantoprazole Code(s): R10.13 - EPIGASTRIC PAIN
[2019-11-11] MEDS: MINERAL OIL ENEMA 133 ML ENEMA PR SCH (10:40)
[2019-11-11] MEDS: POLYETHYLENE GLYCOL 3350 119 GM BTL PO SCH ×2 (10:40→21:08)
[2019-11-11] MEDS: HYDROCHLOROTHIAZIDE 12.5 MG CAPSULE (FP) PO SCH (10:42)
[2019-11-11] MEDS: PANTOPRAZOLE 40 MG TABLET PO SCH (10:43)
[2019-11-11] MEDS: ENALAPRIL MALEATE 10 MG TABLET (FP) PO SCH (10:43)
--- NOTE | 2019-11-11 12:54 | PN ---
Progress Note, Physician History of Present Illness: seen and examined. having bowel movements. no complaints. did not sleep last night. Per RN he doesnt like to be alone. sleeping now. Creatinine 1.4. vomited after breakfast today and GI added simethicone. RN thinks it may be because after he ate they were moving him around a lot. Repeat BCx negative so far. wound Cx MRSA positive. - Current Medication List Current Medications: Active Medications Docusate Sodium (Colace -) 100 mg PO Q8H PRN PRN Reason: CONSTIPATION Enalapril Maleate (Vasotec -) 10 mg PO DAILY [facility] Last Admin: 11/11/19 10:43 Dose: 10 mg Heparin Sodium (Porcine) (Heparin -) 5,000 unit SQ TID [facility] Last Admin: 11/11/19 06:01 Dose: 5,000 unit Hydrochlorothiazide (Hctz -) 12.5 mg PO DAILY [facility] Last Admin: 11/11/19 10:42 Dose: 12.5 mg Vancomycin HCl 1,500 mg/ (Dextrose) 500 mls @ 250 mls/hr IVPB Q24H [facility]; Protocol Last Admin: 11/10/19 13:48 Dose: 250 mls/hr Levothyroxine Sodium (Synthroid -) 150 mcg PO DAILY@0700 [facility] Last Admin: 11/11/19 06:01 Dose: 150 mcg Lorazepam (Ativan Injection -) 0.5 mg IVPUSH Q6H PRN PRN Reason: ANXIETY Last Admin: 11/09/19 09:42 Dose: 0.5 mg Metoclopramide HCl (Reglan -) 5 mg PO TIDAC [facility] Last Admin: 11/11/19 10:42 Dose: 5 mg Mineral Oil (Fleet Mineral Oil Rectal Enema -) 133 ml [place] DAILY [facility] Stop: 11/13/19 09:59 Last Admin: 11/11/19 10:40 Dose: Not Given Ondansetron HCl (Zofran Injection) 4 mg IVPUSH Q8H PRN PRN Reason: NAUSEA Last Admin: 11/08/19 21:03 Dose: 4 mg Pantoprazole Sodium (Protonix -) 40 mg PO DAILY [facility] Last Admin: 11/11/19 10:43 Dose: 40 mg Polyethylene Glycol (Miralax (For Daily Use) -) 17 gm PO BID [facility] Last Admin: 11/11/19 10:40 Dose: Not Given Simethicone (Mylicon -) 80 mg PO QID [facility] - Objective Vital Signs: Vital Signs Temperature 98.6 F 11/11/19 08:57 Pulse Rate 96 H 11/11/19 08:57 Respiratory Rate 19 11/11/19 09:00 Blood Pressure 134/92 11/11/19 08:57 O2 Sat by Pulse Oximetry (%) 98 11/11/19 09:00 Constitutional: Yes: Well Nourished, No Distress, sleeping Neck: Yes: Supple Cardiovascular: Yes: Regular Rate and Rhythm Respiratory: Yes: CTA Bilaterally Gastrointestinal: Yes: Normal Bowel Sounds, Soft. No: Tenderness, no distention Edema: No Neurological: Yes: sleeping Psychiatric: Yes: tired, sleeping Labs: CBC, BMP 11/11/19 06:42 11/11/19 06:42 Impression/Plan Impression/Plan: 24M with cerebral palsy s/p thigh abscess drainage on left called back because of MRSA positive BCx. Repeat no growth so far. Sepsis secondary to MRSA bacteremia from left thigh abscess continue vancomycin per ID vanco trough before 4th dose per ID Abd Pain/vomiting/Fecal impaction vomited today having BMs per RN drinking a lot of fluids per RN Reglan 30 mins before meals simethicone PPI continue bowel regimen transaminitis resolved-LFTs now WNL f/u hepatitis panel-pending COLLEEN creatinine 1.4 today from a high of 1.6. was 1.3 yesterday creatinine on admission 1.2 stop IVF as he is eating and drinking well nephrology consult HTN continue HCTZ and vasotec Hypothyroidism continue synthroid Cerebral Palsy Anxiety/agitation ativan PRN DVT PPx PPI Visit type - Emergency Visit Emergency Visit: Yes ED Registration Date: 11/04/19 Care time: The patient presented to the Emergency Department on the above date and was hospitalized for further evaluation of their emergent condition. - New Patient This patient is new to me today: No - Critical Care Critical Care patient: No
[2019-11-11] MEDS: VANCOMYCIN HCL 1,500 MG in DEXTROSE 5%-WATER - 500 ML IVPB SCH (16:53)
[2019-11-11] MEDS: SIMETHICONE 80 MG TAB.CHEW (FP) PO SCH ×3 (16:58→21:08)
--- NOTE | 2019-11-11 20:20 | PN ---
Progress Note, Physician History of Present Illness: Pt is alert, afebrile. Having BMs. Vomited earlier but in no acute distress currently. - Current Medication List Current Medications: Active Medications Docusate Sodium (Colace -) 100 mg PO Q8H PRN PRN Reason: CONSTIPATION Enalapril Maleate (Vasotec -) 10 mg PO DAILY [facility] Last Admin: 11/11/19 10:43 Dose: 10 mg Heparin Sodium (Porcine) (Heparin -) 5,000 unit SQ TID [facility] Last Admin: 11/11/19 16:57 Dose: 5,000 unit Hydrochlorothiazide (Hctz -) 12.5 mg PO DAILY [facility] Last Admin: 11/11/19 10:42 Dose: 12.5 mg Vancomycin HCl 1,500 mg/ (Dextrose) 500 mls @ 250 mls/hr IVPB Q24H [facility]; Protocol Last Admin: 11/11/19 16:53 Dose: 250 mls/hr Levothyroxine Sodium (Synthroid -) 150 mcg PO DAILY@0700 [facility] Last Admin: 11/11/19 06:01 Dose: 150 mcg Lorazepam (Ativan Injection -) 0.5 mg IVPUSH Q6H PRN PRN Reason: ANXIETY Last Admin: 11/09/19 09:42 Dose: 0.5 mg Metoclopramide HCl (Reglan -) 5 mg PO TIDAC [facility] Last Admin: 11/11/19 16:52 Dose: 5 mg Mineral Oil (Fleet Mineral Oil Rectal Enema -) 133 ml [place] DAILY [facility] Stop: 11/13/19 09:59 Last Admin: 11/11/19 10:40 Dose: Not Given Ondansetron HCl (Zofran Injection) 4 mg IVPUSH Q8H PRN PRN Reason: NAUSEA Last Admin: 11/08/19 21:03 Dose: 4 mg Pantoprazole Sodium (Protonix -) 40 mg PO DAILY [facility] Last Admin: 11/11/19 10:43 Dose: 40 mg Polyethylene Glycol (Miralax (For Daily Use) -) 17 gm PO BID [facility] Last Admin: 11/11/19 10:40 Dose: Not Given Simethicone (Mylicon -) 80 mg PO QID [facility] Last Admin: 11/11/19 17:13 Dose: Not Given - Objective Vital Signs: Vital Signs Temperature 98.6 F 11/11/19 08:57 Pulse Rate 96 H 11/11/19 08:57 Respiratory Rate 19 11/11/19 09:00 Blood Pressure 134/92 11/11/19 08:57 O2 Sat by Pulse Oximetry (%) 98 11/11/19 09:00 Constitutional: Yes: No Distress Cardiovascular: Yes: Regular Rate and Rhythm Respiratory: Yes: Regular Gastrointestinal: Yes: Normal Bowel Sounds, Soft Genitourinary: Yes: WNL Wound/Incision: Yes: Dressing Dry and Intact Neurological: Yes: Alert Labs: CBC, BMP 11/11/19 06:42 11/11/19 06:42 Microbiology 11/04/19 01:30 Blood - Peripheral Venous Blood Culture - Final NO GROWTH AFTER 5 DAYS INCUBATION 11/04/19 01:30 Blood - Peripheral Venous Blood Culture - Final NO GROWTH AFTER 5 DAYS INCUBATION 11/05/19 16:03 Hip - Left Gram Stain - Final 11/05/19 16:03 Hip - Left Wound Culture - Final S Aureus 11/05/19 18:45 Urine - Urine Clean Catch Urine Culture - Final NO GROWTH OBTAINED Problem List - Problems (1) Elevated liver enzymes Code(s): R74.8 - ABNORMAL LEVELS OF OTHER SERUM ENZYMES (2) Fecal impaction Code(s): K56.41 - FECAL IMPACTION (3) Fever Code(s): R50.9 - FEVER, UNSPECIFIED Qualifiers: Fever type: unspecified Qualified Code(s): R50.9 - Fever, unspecified (4) MRSA (methicillin resistant staph aureus) culture positive Code(s): Z22.322 - CARRIER OR SUSPECTED CARRIER OF METHICILLIN RESIS STAPH (5) Transaminitis Code(s): R74.0 - NONSPEC ELEV OF LEVELS OF TRANSAMNS & LACTIC ACID DEHYDRGNSE (6) Abscess Code(s): L02.91 - CUTANEOUS ABSCESS, UNSPECIFIED (7) Cerebral palsy Code(s): G80.9 - CEREBRAL PALSY, UNSPECIFIED Assessment/Plan Lt hip abscess s/p I+D/ MRSA Bacteremia Cerebral palsy COLLEEN resolved -- continue Vancomycin, check trough level prior to dose on 11/13/19 -- monitor renal function -- repeat blood cultures no growth -- continue wound care
[2019-11-12] MEDS: HEPARIN NA (PORCINE) 5,000 UNITS/ML 1ML VIAL SQ SCH ×3 (05:54→22:17)
[2019-11-12] MEDS: METOCLOPRAMIDE HCL 10 MG TABLET (FP) PO SCH ×3 (06:00→18:27)
[2019-11-12] MEDS: LEVOTHYROXINE NA 150 MCG TABLET PO SCH (06:00)
[2019-11-12 08:19] LABS: BASO % 0.4 % (0-2.0); EOS % 4.4 % (0-4.5); HEMATOCRIT 40.7 % (35.4-49); HEMOGLOBIN 13.8 GM/dL (11.7-16.9); MCH 30.4 pg (25.7-33.7); MEAN CELL VOLUME 89.6 fl (80-96); MEAN PLT VOLUME 8.4 fl (7.5-11.1); MONO % 12.6 % (3.8-10.2); NEUT % 52.6 % (42.8-82.8); PLATELET COUNT 243 K/MM3 (134-434); RBC 4.55 M/mm3 (4.00-5.60); RDW 12.7 % (11.9-15.9); WHITE BLOOD COUNT 5.6 K/mm3 (4.0-10.0)
--- NOTE | 2019-11-12 08:54 | PN ---
Teaching Attending Note Name of Resident: Roxane Reich ATTENDING PHYSICIAN STATEMENT I saw and evaluated the patient. I reviewed the resident's note and discussed the case with the resident. I agree with the resident's findings and plan as documented. SUBJECTIVE: OBJECTIVE: Vital Signs Temperature 97.8 F 11/12/19 06:21 Pulse Rate 88 11/12/19 06:21 Respiratory Rate 18 11/12/19 06:21 Blood Pressure 105/77 11/12/19 06:21 O2 Sat by Pulse Oximetry (%) 100 11/11/19 20:57 General: Young man, comfortable, not in distress HEENT; mucous membranes moist, no anemia, no jaundice, PERRLA, no nystagmus Neck: No JVD, supple, no bruit, thyroid palpably normal, normal carotid pulsations. Chest: Nontender, clear to auscultation bilaterally CVS: S1-S2 regular no murmur/gallop/rub Abdomen: Nondistended, soft, bowel sounds present. 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: Nonfocal CBC, BMP 11/12/19 07:45 Active Medications Docusate Sodium (Colace -) 100 mg PO Q8H PRN PRN Reason: CONSTIPATION Enalapril Maleate (Vasotec -) 10 mg PO DAILY [facility] Last Admin: 11/11/19 10:43 Dose: 10 mg Heparin Sodium (Porcine) (Heparin -) 5,000 unit SQ TID [facility] Last Admin: 11/12/19 05:54 Dose: 5,000 unit Hydrochlorothiazide (Hctz -) 12.5 mg PO DAILY [facility] Last Admin: 11/11/19 10:42 Dose: 12.5 mg Vancomycin HCl 1,500 mg/ (Dextrose) 500 mls @ 250 mls/hr IVPB Q24H [facility]; Protocol Last Admin: 11/11/19 16:53 Dose: 250 mls/hr Levothyroxine Sodium (Synthroid -) 150 mcg PO DAILY@0700 [facility] Last Admin: 11/12/19 06:00 Dose: 150 mcg Lorazepam (Ativan Injection -) 0.5 mg IVPUSH Q6H PRN PRN Reason: ANXIETY Last Admin: 11/09/19 09:42 Dose: 0.5 mg Metoclopramide HCl (Reglan -) 5 mg PO TIDAC [facility] Last Admin: 11/12/19 06:00 Dose: 5 mg Mineral Oil (Fleet Mineral Oil Rectal Enema -) 133 ml [place] DAILY [facility] Stop: 11/13/19 09:59 Last Admin: 11/11/19 10:40 Dose: Not Given Ondansetron HCl (Zofran Injection) 4 mg IVPUSH Q8H PRN PRN Reason: NAUSEA Last Admin: 11/08/19 21:03 Dose: 4 mg Pantoprazole Sodium (Protonix -) 40 mg PO DAILY [facility] Last Admin: 11/11/19 10:43 Dose: 40 mg Polyethylene Glycol (Miralax (For Daily Use) -) 17 gm PO BID [facility] Last Admin: 11/11/19 21:08 Dose: 17 grams Simethicone (Mylicon -) 80 mg PO QID [facility] Last Admin: 11/11/19 21:08 Dose: 80 mg ASSESSMENT AND PLAN: 24 years old male, cerebral palsy, recently discharged after I&D left thigh, call back for MRSA bacteremia, repeat cultures are negative on IV vancomycin Problem List - Problems (1) MRSA (methicillin resistant staph aureus) culture positive Assessment/Plan: Previous blood culture grew MRSA patient is growing MRSA from the wound will continue vancomycin possible PICC line for long-term antibiotic. Problems reviewed: Yes Code(s): Z22.322 - CARRIER OR SUSPECTED CARRIER OF METHICILLIN RESIS STAPH (2) Cerebral palsy Code(s): G80.9 - CEREBRAL PALSY, UNSPECIFIED (3) Hypothyroidism Assessment/Plan: Continue levothyroxine Problems reviewed: Yes Code(s): E03.9 - HYPOTHYROIDISM, UNSPECIFIED (4) Hypertension Assessment/Plan: Continue INR Problems reviewed: Yes Code(s): I10 - ESSENTIAL (PRIMARY) HYPERTENSION
[2019-11-12 09:01] LABS: ALBUMIN 3.3 g/dl (3.4-5.0); BILIRUBIN,TOTAL 0.5 mg/dL (0.2-1); BLOOD UREA NITROGEN 14.3 mg/dL (7-18); CALCIUM 8.8 mg/dL (8.5-10.1); CREATININE 1.2 mg/dL (0.55-1.3); MAGNESIUM 1.8 mg/dL (1.8-2.4); PHOSPHOROUS 3.5 mg/dL (2.5-4.9); POTASSIUM 4.2 mmol/L (3.5-5.1); TOT PROT 6.9 g/dl (6.4-8.2)
[2019-11-12] MEDS: HYDROCHLOROTHIAZIDE 12.5 MG CAPSULE (FP) PO SCH (09:40)
[2019-11-12] MEDS: ENALAPRIL MALEATE 10 MG TABLET (FP) PO SCH (09:40)
[2019-11-12] MEDS: SIMETHICONE 80 MG TAB.CHEW (FP) PO SCH ×4 (09:40→22:18)
[2019-11-12] MEDS: PANTOPRAZOLE 40 MG TABLET PO SCH (09:40)
[2019-11-12] MEDS: MINERAL OIL ENEMA 133 ML ENEMA PR SCH (12:26)
[2019-11-12] MEDS: POLYETHYLENE GLYCOL 3350 119 GM BTL PO SCH ×2 (12:26→22:17)
--- NOTE | 2019-11-12 12:41 | PN ---
Progress Note, Physician History of Present Illness: stable tolerating liquids events noted from yesterday - Current Medication List Current Medications: Active Medications Docusate Sodium (Colace -) 100 mg PO Q8H PRN PRN Reason: CONSTIPATION Enalapril Maleate (Vasotec -) 10 mg PO DAILY [facility] Last Admin: 11/12/19 09:40 Dose: 10 mg Heparin Sodium (Porcine) (Heparin -) 5,000 unit SQ TID [facility] Last Admin: 11/12/19 05:54 Dose: 5,000 unit Hydrochlorothiazide (Hctz -) 12.5 mg PO DAILY [facility] Last Admin: 11/12/19 09:40 Dose: 12.5 mg Vancomycin HCl 1,500 mg/ (Dextrose) 500 mls @ 250 mls/hr IVPB Q24H [facility]; Protocol Last Admin: 11/11/19 16:53 Dose: 250 mls/hr Levothyroxine Sodium (Synthroid -) 150 mcg PO DAILY@0700 [facility] Last Admin: 11/12/19 06:00 Dose: 150 mcg Lorazepam (Ativan Injection -) 0.5 mg IVPUSH Q6H PRN PRN Reason: ANXIETY Last Admin: 11/09/19 09:42 Dose: 0.5 mg Metoclopramide HCl (Reglan -) 5 mg PO TIDAC [facility] Last Admin: 11/12/19 12:25 Dose: 5 mg Mineral Oil (Fleet Mineral Oil Rectal Enema -) 133 ml [place] DAILY [facility] Stop: 11/13/19 09:59 Last Admin: 11/12/19 12:26 Dose: Not Given Ondansetron HCl (Zofran Injection) 4 mg IVPUSH Q8H PRN PRN Reason: NAUSEA Last Admin: 11/08/19 21:03 Dose: 4 mg Pantoprazole Sodium (Protonix -) 40 mg PO DAILY [facility] Last Admin: 11/12/19 09:40 Dose: 40 mg Polyethylene Glycol (Miralax (For Daily Use) -) 17 gm PO BID [facility] Last Admin: 11/12/19 12:26 Dose: 17 grams Simethicone (Mylicon -) 80 mg PO QID [facility] Last Admin: 11/12/19 09:40 Dose: 80 mg - Objective Vital Signs: Vital Signs Temperature 98.8 F 11/12/19 10:00 Pulse Rate 94 H 11/12/19 10:00 Respiratory Rate 18 11/12/19 10:00 Blood Pressure 144/76 11/12/19 10:00 O2 Sat by Pulse Oximetry (%) 100 11/12/19 09:00 Constitutional: Yes: No Distress, Calm Cardiovascular: Yes: S1, S2 Respiratory: Yes: Regular, CTA Bilaterally Gastrointestinal: Yes: Normal Bowel Sounds, Soft Musculoskeletal: Yes: WNL Extremities: Yes: WNL Neurological: Yes: Alert, Other Psychiatric: Yes: Other Labs: CBC, BMP 11/12/19 07:45 11/12/19 07:45 Assessment/Plan Problem List - Problems (1) Fever Code(s): R50.9 - FEVER, UNSPECIFIED Qualifiers: Fever type: unspecified Qualified Code(s): R50.9 - Fever, unspecified (2) Gram-positive cocci in clusters Code(s): R68.89 - OTHER GENERAL SYMPTOMS AND SIGNS (3) Tachycardia Code(s): R00.0 - TACHYCARDIA, UNSPECIFIED (4) Abscess Code(s): L02.91 - CUTANEOUS ABSCESS, UNSPECIFIED (5) Cellulitis Code(s): L03.90 - CELLULITIS, UNSPECIFIED (6) Cerebral palsy Code(s): G80.9 - CEREBRAL PALSY, UNSPECIFIED (7) Elevated lactic acid level Code(s): R79.89 - OTHER SPECIFIED ABNORMAL FINDINGS OF BLOOD CHEMISTRY plan continue vanco trough on 21 rest as per the team liquids as tolerated
[2019-11-12] MEDS: VANCOMYCIN HCL 1,500 MG in DEXTROSE 5%-WATER - 500 ML IVPB SCH (13:58)
--- NOTE | 2019-11-12 14:07 | PN ---
Physical Exam: SUBJECTIVE: Patient seen and examined. No vomiting since yesterday morning. He offers no complaints. Denies abdominal pain, nausea. OBJECTIVE: Vital Signs Period Temp Pulse Resp BP Sys/Hubbard Pulse Ox Last 24 Hr 97.8 F-98.8 F 88-94 17-18 105-144/65-77 100-100 GENERAL: anxious today EYES: PERRL ENT: moist mucous membranes. NECK: supple. LUNGS: Breath sounds equal, clear to auscultation bilaterally HEART: Regular rate and rhythm, S1, S2 without murmur, rub or gallop. ABDOMEN: Soft, diffuse tender to palpation EXTREMITIES: 2+ pulses, no edema Laboratory Results - last 24 hr 11/12/19 11/12/19 07:45 07:45 WBC 5.6 RBC 4.55 Hgb 13.8 Hct 40.7 MCV 89.6 MCH 30.4 MCHC 34.0 RDW 12.7 Plt Count 243 MPV 8.4 Absolute Neuts (auto) 2.9 Neutrophils % 52.6 Lymphocytes % 30.0 Monocytes % 12.6 H Eosinophils % 4.4 Basophils % 0.4 D Nucleated RBC % 0 Sodium 136 Potassium 4.2 Chloride 100 Carbon Dioxide 28 Anion Gap 7 L BUN 14.3 Creatinine 1.2 Est GFR (CKD-EPI)AfAm 98.19 Est GFR (CKD-EPI)NonAf 84.72 Random Glucose 92 Calcium 8.8 Phosphorus 3.5 Magnesium 1.8 Total Bilirubin 0.5 AST 32 ALT 49 Alkaline Phosphatase 85 Total Protein 6.9 Albumin 3.3 L Active Medications Generic Name Dose Route Start Last Admin Trade Name Freq PRN Reason Stop Dose Admin Docusate Sodium 100 mg 11/04/19 04:51 Colace - PO Q8H PRN CONSTIPATION Enalapril Maleate 10 mg 11/06/19 10:00 11/12/19 09:40 Vasotec - PO 10 mg DAILY [facility] Administration Heparin Sodium (Porcine) 5,000 unit 11/06/19 14:00 11/12/19 13:58 Heparin - SQ 5,000 unit TID [facility] Administration Hydrochlorothiazide 12.5 mg 11/04/19 10:00 11/12/19 09:40 Hctz - PO 12.5 mg DAILY [facility] Administration Vancomycin HCl 1,500 mg/ 500 mls @ 250 mls/hr 11/09/19 13:00 11/12/19 13:58 Dextrose IVPB 250 mls/hr Q24H [facility] Administration Protocol Levothyroxine Sodium 150 mcg 11/04/19 07:00 11/12/19 06:00 Synthroid - PO 150 mcg DAILY@0700 [facility] Administration Lorazepam 0.5 mg 11/08/19 21:31 11/09/19 09:42 Ativan Injection - IVPUSH 0.5 mg Q6H PRN Administration ANXIETY Metoclopramide HCl 5 mg 11/10/19 16:30 11/12/19 12:25 Reglan - PO 5 mg TIDAC [facility] Administration Mineral Oil 133 ml 11/10/19 10:00 11/12/19 12:26 Fleet Mineral Oil Rectal Enema - MS 11/13/19 09:59 Not Given DAILY [facility] Ondansetron HCl 4 mg 11/04/19 18:09 11/08/19 21:03 Zofran Injection IVPUSH 4 mg Q8H PRN Administration NAUSEA Pantoprazole Sodium 40 mg 11/07/19 10:00 11/12/19 09:40 Protonix - PO 40 mg DAILY [facility] Administration Polyethylene Glycol 17 gm 11/09/19 22:00 11/12/19 12:26 Miralax (For Daily Use) - PO 17 grams BID [facility] Administration Simethicone 80 mg 11/11/19 14:00 11/12/19 13:58 Mylicon - PO 80 mg QID [facility] Administration ASSESSMENT/PLAN: #Sepsis (tachypnea, tachycardia) secondary to MRSA bacteremia from left thigh abscess #MRSA bacteremia #Left hip abscess #Abd Pain-resolved #vomiting #transaminitis-resolved #COLLEEN #HTN #Hypothyroidism #Cerebral Palsy Plan: -no episodes of vomiting today -Abd US results noted -follow up hep studies -check am CPK -Abscess with mrsa -1st set blood cx + MRSA -repeat bcx cultures negative -IV vanco Day 10 per ID. Will need to complete 15 days. -Cr with with minimal improvement. cont Iv fluids -follow up ID reccs -Echo unremarkable -pain control -protonix 40mg per GI. can continue for total 6-8 weeks. -anxiolytics -cw BP meds -cw synthroid -advanced to regular diet -dvt ppx hep sq Visit type - Emergency Visit Emergency Visit: Yes ED Registration Date: 11/04/19 Care time: The patient presented to the Emergency Department on the above date and was hospitalized for further evaluation of their emergent condition. - New Patient This patient is new to me today: Yes Date on this admission: 11/12/19 - Critical Care Critical Care patient: No ATTENDING PHYSICIAN STATEMENT I saw and evaluated the patient. I reviewed the resident's note and discussed the case with the resident. I agree with the resident's findings and plan as documented. SUBJECTIVE: OBJECTIVE: ASSESSMENT AND PLAN:
--- NOTE | 2019-11-12 16:53 | CONSULT ---
Consult Consult Specialty:: Nephrology Reason for Consultation:: COLLEEN - History of Present Illness Chief Complaint: bactermia History of Present Illness: Pt is a 24 year old male with pmhx of cerebral palsy, htn and hypothyroidism who presents with positive blood cultures. He had a left thigh I and D and was discharged previously on Clinda. He was recalled for positive blood cultures. He was found to have renal failure and I was called to evaluate him. His mother says that he does have history of ckd and has "small kidneys." He does not follow with a retirement plan specialist. He is unable to give much history. 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: Yes: Other (cerebral palsy) Cardio/Vascular: Yes: HTN Endocrine: Yes: Hypothyroidism - Alcohol/Substance Use Hx Alcohol Use: No - Smoking History Smoking history: Never smoked Have you smoked in the past 12 months: No - Social History Usual Living Arrangement: With Parent ADL: Family Assistance History of Recent Travel: No Home Medications - Allergies Allergies/Adverse Reactions: Allergies Allergy/AdvReac Type Severity Reaction Status Date / Time No Known Allergies Allergy Verified 10/31/19 23:53 - Home Medications Home Medications: Ambulatory Orders Docusate Sodium [Colace -] 100 mg PO Q8H PRN #90 capsule 12/09/17 Enalapril Maleate [Vasotec -] 5 mg PO DAILY #30 tablet 12/09/17 Hydrochlorothiazide [Hctz -] 12.5 mg PO DAILY #30 cap 12/09/17 Levothyroxine [Synthroid -] 150 mcg PO DAILY@0700 #30 tablet 12/09/17 Polyethylene Glycol 3350 [Miralax 119 gm Btl -] 17 gm PO DAILY #1 bottle Ondansetron Injection [Zofran Injection] 4 mg IVPUSH Q8H PRN vial 11/08/19 Pantoprazole Sodium [Protonix -] 40 mg PO DAILY tablet.ec 11/08/19 Family Medical History Family History: Unable to Obtain Review of Systems Unable to obtain ROS, reason: mental status Physical Exam Vital Signs: Vital Signs Temperature 98.5 F 11/12/19 14:14 Pulse Rate 100 H 11/12/19 14:14 Respiratory Rate 20 11/12/19 14:14 Blood Pressure 138/71 11/12/19 14:14 O2 Sat by Pulse Oximetry (%) 100 11/12/19 09:00 Constitutional: Yes: No Distress, Calm Eyes: Yes: Conjunctiva Clear HENT: Yes: Atraumatic Cardiovascular: Yes: S1, S2 Respiratory: Yes: CTA Bilaterally Gastrointestinal: Yes: Soft Renal/: Yes: Incontinence Edema: No Neurological: Yes: Pre-Existing Deficit Labs: CBC, BMP 11/12/19 07:45 11/12/19 07:45 Microbiology 11/04/19 01:30 Blood - Peripheral Venous Blood Culture - Final NO GROWTH AFTER 5 DAYS INCUBATION 11/04/19 01:30 Blood - Peripheral Venous Blood Culture - Final NO GROWTH AFTER 5 DAYS INCUBATION Laboratory Tests 11/05/19 11/08/19 11/09/19 03:40 06:05 06:45 Creatinine 1.6 H 1.5 H Urine Protein 2+ H 11/10/19 11/11/19 11/12/19 07:00 06:42 07:45 Creatinine 1.3 1.4 H 1.2 Urine Protein Imaging - Results Ultrasound: Report Reviewed (atrophic right kidney) Problem List - Problems (1) Gram-positive cocci in clusters Code(s): R68.89 - OTHER GENERAL SYMPTOMS AND SIGNS (2) Hypertension Code(s): I10 - ESSENTIAL (PRIMARY) HYPERTENSION (3) Hypothyroidism Code(s): E03.9 - HYPOTHYROIDISM, UNSPECIFIED Assessment/Plan Current Medications Generic Name Dose Route Start Last Admin Trade Name Freq PRN Reason Stop Dose Admin Docusate Sodium 100 mg 11/04/19 04:51 Colace - PO Q8H PRN CONSTIPATION Enalapril Maleate 10 mg 11/06/19 10:00 11/12/19 09:40 Vasotec - PO 10 mg DAILY [facility] Administration Heparin Sodium (Porcine) 5,000 unit 11/06/19 14:00 11/12/19 13:58 Heparin - SQ 5,000 unit TID [facility] Administration Hydrochlorothiazide 12.5 mg 11/04/19 10:00 11/12/19 09:40 Hctz - PO 12.5 mg DAILY [facility] Administration Vancomycin HCl 1,500 mg/ 500 mls @ 250 mls/hr 11/09/19 13:00 11/12/19 13:58 Dextrose IVPB 250 mls/hr Q24H [facility] Administration Protocol Levothyroxine Sodium 150 mcg 11/04/19 07:00 11/12/19 06:00 Synthroid - PO 150 mcg DAILY@0700 [facility] Administration Lorazepam 0.5 mg 11/08/19 21:31 11/09/19 09:42 Ativan Injection - IVPUSH 0.5 mg Q6H PRN Administration ANXIETY Metoclopramide HCl 5 mg 11/10/19 16:30 11/12/19 12:25 Reglan - PO 5 mg TIDAC [facility] Administration Mineral Oil 133 ml 11/10/19 10:00 11/12/19 12:26 Fleet Mineral Oil Rectal Enema - [place] 11/13/19 09:59 Not Given DAILY [facility] Ondansetron HCl 4 mg 11/04/19 18:09 11/08/19 21:03 Zofran Injection IVPUSH 4 mg Q8H PRN Administration NAUSEA Pantoprazole Sodium 40 mg 11/07/19 10:00 11/12/19 09:40 Protonix - PO 40 mg DAILY [facility] Administration Polyethylene Glycol 17 gm 11/09/19 22:00 11/12/19 12:26 Miralax (For Daily Use) - PO 17 grams BID [facility] Administration Simethicone 80 mg 11/11/19 14:00 11/12/19 13:58 Mylicon - PO 80 mg QID [facility]UAN Administration Impression 1. ckd 2. atrophic right kidney 3. htn 4. bacteremia 5. htn 6. cerebralpalsy 7. hypothyroid 8. proteinuria Plan - check renal ultrasound to evaluate left kidney - c++ professor improved - repeat labs in am - pt with ckd, discussed with his mother - check prt to c++ professor ratio of possible - cont anabela
[2019-11-12 21:07] LABS: HEP B CORE AB, TOT Negative (Negative)
[2019-11-13] MEDS: HEPARIN NA (PORCINE) 5,000 UNITS/ML 1ML VIAL SQ SCH (05:49)
[2019-11-13] MEDS: LEVOTHYROXINE NA 150 MCG TABLET PO SCH (06:01)
[2019-11-13] MEDS: METOCLOPRAMIDE HCL 10 MG TABLET (FP) PO SCH ×3 (06:01→17:43)
[2019-11-13 08:36] LABS: BASO % 0.3 % (0-2.0); EOS % 3.4 % (0-4.5); HEMATOCRIT 43.3 % (35.4-49); HEMOGLOBIN 14.8 GM/dL (11.7-16.9); LYMPH % 33.8 % (8-40); MCH 30.7 pg (25.7-33.7); MCHC 34.2 g/dl (32.0-35.9); MONO % 12.2 % (3.8-10.2); NEUT % 50.3 % (42.8-82.8); PLATELET COUNT 327 K/MM3 (134-434); RBC 4.81 M/mm3 (4.00-5.60); RDW 12.5 % (11.9-15.9); WHITE BLOOD COUNT 4.8 K/mm3 (4.0-10.0)
[2019-11-13 08:58] LABS: ALBUMIN 3.7 g/dl (3.4-5.0); BILIRUBIN,TOTAL 1.1 mg/dL (0.2-1); BLOOD UREA NITROGEN 17.4 mg/dL (7-18); CALCIUM 9.8 mg/dL (8.5-10.1); CREATININE 1.5 mg/dL (0.55-1.3); POTASSIUM 4.1 mmol/L (3.5-5.1); TOT PROT 7.8 g/dl (6.4-8.2)
--- NOTE | 2019-11-13 09:24 | PN ---
Teaching Attending Note Name of Resident: Roxane Reich ATTENDING PHYSICIAN STATEMENT I saw and evaluated the patient. I reviewed the resident's note and discussed the case with the resident. I agree with the resident's findings and plan as documented. SUBJECTIVE: Remained afebrile OBJECTIVE: Vital Signs Temperature 97.7 F 11/13/19 06:11 Pulse Rate 68 11/13/19 06:11 Respiratory Rate 17 11/13/19 06:11 Blood Pressure 133/88 11/13/19 06:11 O2 Sat by Pulse Oximetry (%) 100 11/13/19 08:49 General: Young man, comfortable, not in distress HEENT; mucous membranes moist, no anemia, no jaundice, PERRLA, no nystagmus Neck: No JVD, supple, no bruit, thyroid palpably normal, normal carotid pulsations. Chest: Nontender, clear to auscultation bilaterally CVS: S1-S2 regular no murmur/gallop/rub Abdomen: Nondistended, soft, bowel sounds present. Extremities: Left thigh abscess healing no edema., No cough tenderness, pulses present LIMITED RADIOLOGY TECHNICIAN: Nonfocal ASSESSMENT AND PLAN: 24 years old male, cerebral palsy, recently discharged after I&D left thigh, call back for MRSA bacteremia, repeat cultures are negative on IV vancomycin Follow-up ID recommendations. Problem List - Problems (1) MRSA (methicillin resistant staph aureus) culture positive Assessment/Plan: Previous blood culture grew MRSA patient is growing MRSA from the wound will continue vancomycin possible PICC line for long-term antibiotic. Code(s): Z22.322 - CARRIER OR SUSPECTED CARRIER OF METHICILLIN RESIS STAPH (2) Cerebral palsy Assessment/Plan: Chronic stable Code(s): G80.9 - CEREBRAL PALSY, UNSPECIFIED (3) Hypothyroidism Assessment/Plan: Continue levothyroxine Code(s): E03.9 - HYPOTHYROIDISM, UNSPECIFIED (4) Hypertension Assessment/Plan: Continue INR Code(s): I10 - ESSENTIAL (PRIMARY) HYPERTENSION
[2019-11-13] MEDS ORDERED: PT OWN MED DRAWER 7, Y5N ONE (10:40)
[2019-11-13] MEDS: SIMETHICONE 80 MG TAB.CHEW (FP) PO SCH ×4 (10:52→23:00)
[2019-11-13] MEDS: PANTOPRAZOLE 40 MG TABLET PO SCH (10:52)
[2019-11-13] MEDS: HYDROCHLOROTHIAZIDE 12.5 MG CAPSULE (FP) PO SCH (10:52)
[2019-11-13] MEDS: POLYETHYLENE GLYCOL 3350 119 GM BTL PO SCH ×2 (10:56→23:12)
[2019-11-13] MEDS: ENALAPRIL MALEATE 10 MG TABLET (FP) PO SCH (10:56)
--- NOTE | 2019-11-13 11:10 | PN ---
Progress Note, Physician History of Present Illness: stable no new issues - Current Medication List Current Medications: Active Medications Docusate Sodium (Colace -) 100 mg PO Q8H PRN PRN Reason: CONSTIPATION Enalapril Maleate (Vasotec -) 10 mg PO DAILY [facility] Last Admin: 11/13/19 10:56 Dose: 10 mg Heparin Sodium (Porcine) (Heparin -) 5,000 unit SQ TID [facility] Last Admin: 11/13/19 05:49 Dose: 5,000 unit Hydrochlorothiazide (Hctz -) 12.5 mg PO DAILY [facility] Last Admin: 11/13/19 10:52 Dose: 12.5 mg Vancomycin HCl 1,500 mg/ (Dextrose) 500 mls @ 250 mls/hr IVPB Q24H [facility]; Protocol Last Admin: 11/12/19 13:58 Dose: 250 mls/hr Levothyroxine Sodium (Synthroid -) 150 mcg PO DAILY@0700 [facility] Last Admin: 11/13/19 06:01 Dose: 150 mcg Lorazepam (Ativan Injection -) 0.5 mg IVPUSH Q6H PRN PRN Reason: ANXIETY Last Admin: 11/09/19 09:42 Dose: 0.5 mg Metoclopramide HCl (Reglan -) 5 mg PO TIDAC [facility] Last Admin: 11/13/19 10:52 Dose: 5 mg Ondansetron HCl (Zofran Injection) 4 mg IVPUSH Q8H PRN PRN Reason: NAUSEA Last Admin: 11/08/19 21:03 Dose: 4 mg Pantoprazole Sodium (Protonix -) 40 mg PO DAILY [facility] Last Admin: 11/13/19 10:52 Dose: 40 mg Polyethylene Glycol (Miralax (For Daily Use) -) 17 gm PO BID [facility] Last Admin: 11/13/19 10:56 Dose: Not Given Simethicone (Mylicon -) 80 mg PO QID [facility] Last Admin: 11/13/19 10:52 Dose: 80 mg - Objective Vital Signs: Vital Signs Temperature 97.7 F 11/13/19 06:11 Pulse Rate 68 11/13/19 06:11 Respiratory Rate 17 11/13/19 06:11 Blood Pressure 133/88 11/13/19 06:11 O2 Sat by Pulse Oximetry (%) 100 11/13/19 08:49 Constitutional: Yes: No Distress, Calm Cardiovascular: Yes: S1, S2 Respiratory: Yes: Regular, CTA Bilaterally Gastrointestinal: Yes: Normal Bowel Sounds, Soft Neurological: Yes: Alert, Other Psychiatric: Yes: Other Labs: CBC, BMP 11/13/19 07:39 11/13/19 06:00 Assessment/Plan Problem List - Problems (1) Fever Code(s): R50.9 - FEVER, UNSPECIFIED Qualifiers: Fever type: unspecified Qualified Code(s): R50.9 - Fever, unspecified (2) Gram-positive cocci in clusters Code(s): R68.89 - OTHER GENERAL SYMPTOMS AND SIGNS (3) Tachycardia Code(s): R00.0 - TACHYCARDIA, UNSPECIFIED (4) Abscess Code(s): L02.91 - CUTANEOUS ABSCESS, UNSPECIFIED (5) Cellulitis Code(s): L03.90 - CELLULITIS, UNSPECIFIED (6) Cerebral palsy Code(s): G80.9 - CEREBRAL PALSY, UNSPECIFIED (7) Elevated lactic acid level Code(s): R79.89 - OTHER SPECIFIED ABNORMAL FINDINGS OF BLOOD CHEMISTRY plan continue vanco complete vilma abx course
--- NOTE | 2019-11-13 12:53 | PN ---
Physical Exam: SUBJECTIVE: Patient seen and examined. No events overnight. no new episodes of vomiting. Says he has some abdominal pain today. OBJECTIVE: Vital Signs Period Temp Pulse Resp BP Sys/Hubbard Pulse Ox Last 24 Hr 97.7 F-98.6 F 68-100 17-20 113-141/68-88 100-100 GENERAL: comfortable, resting in bed EYES: PERRL ENT: moist mucous membranes. NECK: supple. LUNGS: Breath sounds equal, clear to auscultation bilaterally HEART: Regular rate and rhythm, S1, S2 without murmur, rub or gallop. ABDOMEN: Soft, nt, nd, no guarding EXTREMITIES: 2+ pulses, no edema Laboratory Results - last 24 hr 11/10/19 11/13/19 11/13/19 07:00 06:00 07:30 WBC RBC Hgb Hct MCV MCH MCHC RDW Plt Count MPV Absolute Neuts (auto) Neutrophils % Lymphocytes % Monocytes % Eosinophils % Basophils % Nucleated RBC % Sodium 136 Potassium 4.1 Chloride 98 Carbon Dioxide 31 Anion Gap 6 L BUN 17.4 Creatinine 1.5 H Est GFR (CKD-EPI)AfAm 74.98 Est GFR (CKD-EPI)NonAf 64.69 Random Glucose 93 Calcium 9.8 Total Bilirubin 1.1 H AST 36 ALT 53 Alkaline Phosphatase 97 Total Protein 7.8 Albumin 3.7 Vancomycin Pre-Dose 20.8 Hep A IgM Ab Confirm Negative Hepatitis A Ab Total Negative Hep Bs Antigen Negative Hep Bs Antibody Non reactive Hep B Core Total Ab Negative Hep B Core IgM Ab Negative Hepatitis Be Antibody Negative Hepatitis Be Antigen Negative 11/13/19 07:39 WBC 4.8 RBC 4.81 Hgb 14.8 Hct 43.3 MCV 90.0 MCH 30.7 MCHC 34.2 RDW 12.5 Plt Count 327 D MPV 8.0 Absolute Neuts (auto) 2.4 Neutrophils % 50.3 Lymphocytes % 33.8 Monocytes % 12.2 H Eosinophils % 3.4 Basophils % 0.3 Nucleated RBC % 0 Sodium Potassium Chloride Carbon Dioxide Anion Gap BUN Creatinine Est GFR (CKD-EPI)AfAm Est GFR (CKD-EPI)NonAf Random Glucose Calcium Total Bilirubin AST ALT Alkaline Phosphatase Total Protein Albumin Vancomycin Pre-Dose Hep A IgM Ab Confirm Hepatitis A Ab Total Hep Bs Antigen Hep Bs Antibody Hep B Core Total Ab Hep B Core IgM Ab Hepatitis Be Antibody Hepatitis Be Antigen Active Medications Generic Name Dose Route Start Last Admin Trade Name Freq PRN Reason Stop Dose Admin Docusate Sodium 100 mg 11/04/19 04:51 Colace - PO Q8H PRN CONSTIPATION Enalapril Maleate 10 mg 11/06/19 10:00 11/13/19 10:56 Vasotec - PO 10 mg DAILY JUAN Administration Heparin Sodium (Porcine) 5,000 unit 11/06/19 14:00 11/13/19 05:49 Heparin - SQ 5,000 unit TID JUAN Administration Hydrochlorothiazide 12.5 mg 11/04/19 10:00 11/13/19 10:52 Hctz - PO 12.5 mg DAILY JUAN Administration Vancomycin HCl 1,500 mg/ 500 mls @ 250 mls/hr 11/09/19 13:00 11/12/19 13:58 Dextrose IVPB 250 mls/hr Q24H JUAN Administration Protocol Levothyroxine Sodium 150 mcg 11/04/19 07:00 11/13/19 06:01 Synthroid - PO 150 mcg DAILY@0700 JUAN Administration Lorazepam 0.5 mg 11/08/19 21:31 11/09/19 09:42 Ativan Injection - IVPUSH 0.5 mg Q6H PRN Administration ANXIETY Metoclopramide HCl 5 mg 11/10/19 16:30 11/13/19 10:52 Reglan - PO 5 mg TIDAC JUAN Administration Ondansetron HCl 4 mg 11/04/19 18:09 11/08/19 21:03 Zofran Injection IVPUSH 4 mg Q8H PRN Administration NAUSEA Pantoprazole Sodium 40 mg 11/07/19 10:00 11/13/19 10:52 Protonix - PO 40 mg DAILY JUAN Administration Polyethylene Glycol 17 gm 11/09/19 22:00 11/13/19 10:56 Miralax (For Daily Use) - PO Not Given BID [facility] Simethicone 80 mg 11/11/19 14:00 11/13/19 10:52 Mylicon - PO 80 mg QID JUAN Administration ASSESSMENT/PLAN: #Sepsis (tachypnea, tachycardia) secondary to MRSA bacteremia from left thigh abscess-improving #MRSA bacteremia-2nd set negative #Left hip abscess-currently being treated with abx #Abd Pain-resolved #vomiting #transaminitis-resolved #COLLEEN #HTN #Hypothyroidism #Cerebral Palsy Plan: -no episodes of vomiting today -Abd US results noted -hep panel negative -Abscess with mrsa -1st set blood cx + MRSA -repeat bcx cultures negative -IV vanco Day 12 per ID. Will need to complete 15 days. -cr with nump to 1.5 today. -follow up ID reccs -Echo unremarkable -pain control -protonix 40mg per GI. can continue for total 6-8 weeks. -anxiolytics -cw BP meds -cw synthroid -advanced to regular diet -dvt ppx hep sq Visit type - Emergency Visit Emergency Visit: Yes ED Registration Date: 11/04/19 Care time: The patient presented to the Emergency Department on the above date and was hospitalized for further evaluation of their emergent condition. - New Patient This patient is new to me today: Yes Date on this admission: 11/13/19 - Critical Care Critical Care patient: No ATTENDING PHYSICIAN STATEMENT I saw and evaluated the patient. I reviewed the resident's note and discussed the case with the resident. I agree with the resident's findings and plan as documented. SUBJECTIVE: OBJECTIVE: ASSESSMENT AND PLAN:
[2019-11-13] MEDS: VANCOMYCIN HCL 1,500 MG in DEXTROSE 5%-WATER - 500 ML IVPB SCH (12:58)
--- NOTE | 2019-11-13 14:54 | PN ---
Progress Note, Physician History of Present Illness: Pt seen and examined at bedside. He is awake and appears comfortable. - Current Medication List Current Medications: Active Medications Docusate Sodium (Colace -) 100 mg PO Q8H PRN PRN Reason: CONSTIPATION Enalapril Maleate (Vasotec -) 10 mg PO DAILY [facility] Last Admin: 11/13/19 10:56 Dose: 10 mg Hydrochlorothiazide (Hctz -) 12.5 mg PO DAILY [facility] Last Admin: 11/13/19 10:52 Dose: 12.5 mg Vancomycin HCl 1,500 mg/ (Dextrose) 500 mls @ 250 mls/hr IVPB Q24H [facility]; Protocol Last Admin: 11/13/19 12:58 Dose: 250 mls/hr Levothyroxine Sodium (Synthroid -) 150 mcg PO DAILY@0700 [facility] Last Admin: 11/13/19 06:01 Dose: 150 mcg Metoclopramide HCl (Reglan -) 5 mg PO TIDAC [facility] Last Admin: 11/13/19 10:52 Dose: 5 mg Ondansetron HCl (Zofran Injection) 4 mg IVPUSH Q8H PRN PRN Reason: NAUSEA Last Admin: 11/08/19 21:03 Dose: 4 mg Pantoprazole Sodium (Protonix -) 40 mg PO DAILY [facility] Last Admin: 11/13/19 10:52 Dose: 40 mg Polyethylene Glycol (Miralax (For Daily Use) -) 17 gm PO BID [facility] Last Admin: 11/13/19 10:56 Dose: Not Given Simethicone (Mylicon -) 80 mg PO QID [facility] Last Admin: 11/13/19 13:36 Dose: 80 mg - Objective Vital Signs: Vital Signs Temperature 97.9 F 11/13/19 10:00 Pulse Rate 82 11/13/19 10:00 Respiratory Rate 18 11/13/19 10:00 Blood Pressure 141/75 11/13/19 10:00 O2 Sat by Pulse Oximetry (%) 100 11/13/19 08:49 Constitutional: Yes: Calm Eyes: Yes: Conjunctiva Clear HENT: Yes: Atraumatic Neck: Yes: Supple Cardiovascular: Yes: S1, S2 Respiratory: Yes: CTA Bilaterally Gastrointestinal: Yes: Soft Musculoskeletal: Yes: Other (congenital deformities) Edema: No Neurological: Yes: Pre-Existing Deficit Labs: CBC, BMP 11/13/19 07:39 11/13/19 06:00 Problem List - Problems (1) Gram-positive cocci in clusters Code(s): R68.89 - OTHER GENERAL SYMPTOMS AND SIGNS (2) Hypertension Code(s): I10 - ESSENTIAL (PRIMARY) HYPERTENSION (3) Hypothyroidism Code(s): E03.9 - HYPOTHYROIDISM, UNSPECIFIED Assessment/Plan Current Medications Generic Name Dose Route Start Last Admin Trade Name Freq PRN Reason Stop Dose Admin Docusate Sodium 100 mg 11/04/19 04:51 Colace - PO Q8H PRN CONSTIPATION Enalapril Maleate 10 mg 11/06/19 10:00 11/13/19 10:56 Vasotec - PO 10 mg DAILY JUAN Administration Hydrochlorothiazide 12.5 mg 11/04/19 10:00 11/13/19 10:52 Hctz - PO 12.5 mg DAILY JUAN Administration Vancomycin HCl 1,500 mg/ 500 mls @ 250 mls/hr 11/09/19 13:00 11/13/19 12:58 Dextrose IVPB 250 mls/hr Q24H JUAN Administration Protocol Levothyroxine Sodium 150 mcg 11/04/19 07:00 11/13/19 06:01 Synthroid - PO 150 mcg DAILY@0700 JUAN Administration Metoclopramide HCl 5 mg 11/10/19 16:30 11/13/19 10:52 Reglan - PO 5 mg TIDAC JUAN Administration Ondansetron HCl 4 mg 11/04/19 18:09 11/08/19 21:03 Zofran Injection IVPUSH 4 mg Q8H PRN Administration NAUSEA Pantoprazole Sodium 40 mg 11/07/19 10:00 11/13/19 10:52 Protonix - PO 40 mg DAILY JUAN Administration Polyethylene Glycol 17 gm 11/09/19 22:00 11/13/19 10:56 Miralax (For Daily Use) - PO Not Given BID JUAN Simethicone 80 mg 11/11/19 14:00 11/13/19 13:36 Mylicon - PO 80 mg QID JUAN Administration Impression 1. ckd 2. atrophic right kidney 3. htn 4. bacteremia 5. htn 6. cerebralpalsy 7. hypothyroid 8. proteinuria Plan - follow renal ultrasound - repeat labs in am - pt with history of CKD - check prt to director ambulatory ratio of possible - cont anabela for now
--- NOTE | 2019-11-13 17:26 | PN.GI ---
GI Progress Note Subjective: Sitting at the nursing station. States that he isn't sick anymore. No Vomiting reported - Objective Vital Signs: Vital Signs Temperature 97.9 F 11/13/19 15:18 Pulse Rate 101 H 11/13/19 15:18 Respiratory Rate 20 11/13/19 15:18 Blood Pressure 142/89 11/13/19 15:18 O2 Sat by Pulse Oximetry (%) 100 11/13/19 08:49 Constitutional: Calm Eyes: No: Sclera Icterus Cardiovascular: Yes: Regular Rate and Rhythm Respiratory: Yes: CTA Bilaterally Gastrointestinal Inspection: No: Distention ...Auscultate: Yes: Normoactive Bowel Sounds ...Palpate: Yes: Soft. No: Hepatomegaly, Splenomegaly ...Percussion: No: Tympanitic Neurological: Yes: Alert Labs: CBC, BMP 11/13/19 07:39 11/13/19 06:00 Hepatic Panel Total Bilirubin 1.1 mg/dL (0.2-1) H 11/13/19 06:00 Direct Bilirubin 0.3 mg/dL (0.0-0.2) H 11/10/19 07:00 AST 36 U/L (15-37) 11/13/19 06:00 ALT 53 U/L (13-61) 11/13/19 06:00 Alkaline Phosphatase 97 U/L (45-117) 11/13/19 06:00 Albumin 3.7 g/dl (3.4-5.0) 11/13/19 06:00 Laboratory Tests 11/10/19 07:00 Hep A IgM Ab Confirm Negative Hepatitis A Ab Total Negative Hep Bs Antigen Negative Hep Bs Antibody Non reactive Hep B Core Total Ab Negative Hep B Core IgM Ab Negative Hepatitis Be Antibody Negative Hepatitis Be Antigen Negative Hep C Ab Diagnostic <0.1 Problem List - Problems (1) Vomiting Assessment/Plan: No further vomiting: Discontinue Reglan tomorrow Protonix 20mg once daily Continue bowel regimen Code(s): R11.10 - VOMITING, UNSPECIFIED (2) Transaminitis Assessment/Plan: Improved Will need hepatitis B vaccination as serologies do not reflect immunity Code(s): R74.0 - NONSPEC ELEV OF LEVELS OF TRANSAMNS & LACTIC ACID DEHYDRGNSE
[2019-11-14] MEDS: METOCLOPRAMIDE HCL 10 MG TABLET (FP) PO SCH ×3 (07:13→17:31)
[2019-11-14] MEDS: LEVOTHYROXINE NA 150 MCG TABLET PO SCH (07:13)
[2019-11-14 08:19] LABS: ALBUMIN 3.7 g/dl (3.4-5.0); BILIRUBIN,TOTAL 0.5 mg/dL (0.2-1); BLOOD UREA NITROGEN 20.1 mg/dL (7-18); CALCIUM 9.9 mg/dL (8.5-10.1); CREATININE 1.5 mg/dL (0.55-1.3); POTASSIUM 4.3 mmol/L (3.5-5.1); TOT PROT 7.9 g/dl (6.4-8.2)
[2019-11-14] MEDS ORDERED: PT OWN MED DRAWER 7, Y5N ONE ×2 (09:46→12:11)
[2019-11-14] MEDS: ENALAPRIL MALEATE 10 MG TABLET (FP) PO SCH (09:49)
[2019-11-14] MEDS: HYDROCHLOROTHIAZIDE 12.5 MG CAPSULE (FP) PO SCH (09:49)
[2019-11-14] MEDS: SIMETHICONE 80 MG TAB.CHEW (FP) PO SCH ×3 (09:49→17:30)
[2019-11-14] MEDS: POLYETHYLENE GLYCOL 3350 119 GM BTL PO SCH (09:52)
[2019-11-14] MEDS ORDERED: VANCOMYCIN HCL 1,250 MG in DEXTROSE 5%-WATER - 250 ML IVPB SCH (10:00)
[2019-11-14] MEDS ORDERED: PANTOPRAZOLE 20 MG TABLET PO SCH (10:00)
--- NOTE | 2019-11-14 10:09 | PN ---
Progress Note, Physician History of Present Illness: stable no new issues - Current Medication List Current Medications: Active Medications Docusate Sodium (Colace -) 100 mg PO Q8H PRN PRN Reason: CONSTIPATION Enalapril Maleate (Vasotec -) 10 mg PO DAILY [facility] Last Admin: 11/14/19 09:49 Dose: 10 mg Hydrochlorothiazide (Hctz -) 12.5 mg PO DAILY [facility] Last Admin: 11/14/19 09:49 Dose: 12.5 mg Vancomycin HCl 1,250 mg/ (Dextrose) 250 mls @ 166.667 mls/hr IVPB DAILY [facility]; Protocol Levothyroxine Sodium (Synthroid -) 150 mcg PO DAILY@0700 [facility] Last Admin: 11/14/19 07:13 Dose: 150 mcg Metoclopramide HCl (Reglan -) 5 mg PO TIDAC [facility] Last Admin: 11/14/19 07:13 Dose: 5 mg Ondansetron HCl (Zofran Injection) 4 mg IVPUSH Q8H PRN PRN Reason: NAUSEA Last Admin: 11/08/19 21:03 Dose: 4 mg Pantoprazole Sodium (Protonix -) 20 mg PO DAILY [facility] Last Admin: 11/14/19 09:49 Dose: 20 mg Polyethylene Glycol (Miralax (For Daily Use) -) 17 gm PO BID [facility] Last Admin: 11/14/19 09:52 Dose: Not Given Simethicone (Mylicon -) 80 mg PO QID [facility] Last Admin: 11/14/19 09:49 Dose: 80 mg - Objective Vital Signs: Vital Signs Temperature 98.1 F 11/14/19 09:53 Pulse Rate 98 H 11/14/19 09:53 Respiratory Rate 18 11/14/19 09:53 Blood Pressure 149/69 11/14/19 09:53 O2 Sat by Pulse Oximetry (%) 100 11/14/19 09:00 Constitutional: Yes: No Distress, Calm Cardiovascular: Yes: S1, S2 Respiratory: Yes: Regular, CTA Bilaterally Gastrointestinal: Yes: Normal Bowel Sounds, Soft Musculoskeletal: Yes: WNL Extremities: Yes: WNL Neurological: Yes: Alert, Other Psychiatric: Yes: Other Labs: CBC, BMP 11/13/19 07:39 11/14/19 06:45 Assessment/Plan Problem List - Problems (1) Fever Code(s): R50.9 - FEVER, UNSPECIFIED Qualifiers: Fever type: unspecified Qualified Code(s): R50.9 - Fever, unspecified (2) Gram-positive cocci in clusters Code(s): R68.89 - OTHER GENERAL SYMPTOMS AND SIGNS (3) Tachycardia Code(s): R00.0 - TACHYCARDIA, UNSPECIFIED (4) Abscess Code(s): L02.91 - CUTANEOUS ABSCESS, UNSPECIFIED (5) Cellulitis Code(s): L03.90 - CELLULITIS, UNSPECIFIED (6) Cerebral palsy Code(s): G80.9 - CEREBRAL PALSY, UNSPECIFIED (7) Elevated lactic acid level Code(s): R79.89 - OTHER SPECIFIED ABNORMAL FINDINGS OF BLOOD CHEMISTRY plan continue vanco trough noted dose adjusted rest as per the team
--- NOTE | 2019-11-14 11:35 | DS ---
Physical Exam: SUBJECTIVE: Patient seen and examined. comfortable has no complaints today. no events overnight. OBJECTIVE: Vital Signs Period Temp Pulse Resp BP Sys/Hubbard Pulse Ox Last 24 Hr 97.6 F-98.5 F 87-101 16-20 136-149/69-89 100-100 PHYSICAL EXAM GENERAL: comfortable, resting in bed EYES: PERRL ENT: moist mucous membranes. NECK: supple. LUNGS: Breath sounds equal, clear to auscultation bilaterally HEART: Regular rate and rhythm, S1, S2 without murmur, rub or gallop. ABDOMEN: Soft, nt, nd, no guarding EXTREMITIES: 2+ pulses, no edema LABS Laboratory Results - last 24 hr 11/14/19 06:45 Sodium 137 Potassium 4.3 Chloride 97 L Carbon Dioxide 33 H Anion Gap 7 L BUN 20.1 H Creatinine 1.5 H Est GFR (CKD-EPI)AfAm 74.98 Est GFR (CKD-EPI)NonAf 64.69 Random Glucose 88 Calcium 9.9 Total Bilirubin 0.5 AST 37 ALT 56 Alkaline Phosphatase 97 Total Protein 7.9 Albumin 3.7 HOSPITAL COURSE: Date of Admission:11/04/19 #Sepsis (tachypnea, tachycardia) secondary to MRSA bacteremia from left thigh abscess-improving #MRSA bacteremia-2nd set negative #Left hip abscess-currently being treated with abx #Abd Pain-resolved #vomiting #transaminitis-resolved #COLLEEN #HTN #Hypothyroidism #Cerebral Palsy #Functional quadriplegia Plan: -no episodes of vomiting today -Abd US results noted -hep panel negative -Abscess with mrsa -1st set blood cx + MRSA -repeat bcx cultures negative -IV vanco Day 13 per ID. Will discharge patient home with 2 days more of IV vanco. Total of 15 days. -follow up ID reccs -Echo unremarkable -pain control -can take protonix 20mg per GI -will d/c reglan on discharge -anxiolytics -cw BP meds -cw synthroid -advanced to regular diet -can be discharged home today Date of Discharge: 11/14/19 Minutes to complete discharge: 35 Discharge Summary Problems reviewed: Yes Reason For Visit: FEVER/GRAM-POSITIVE/COCCI IN CLUSTERS/TACHYCARDIA Current Active Problems Elevated liver enzymes (Acute) Epigastric pain (Acute) Fecal impaction (Acute) Fever (Acute) GI bleed (Acute) Gram-positive cocci in clusters (Acute) Hypertension (Acute) Hypothyroidism (Acute) MRSA (methicillin resistant staph aureus) culture positive (Acute) Tachycardia (Acute) Transaminitis (Acute) Vomiting (Acute) Condition: Stable - Instructions Diet, Activity, Other Instructions: You were admitted because of an abscess in your left thigh which was also consistent with MRSA. You were treated with antibiotics in the hospital and will continue to take antibiotics for 2 more days (Last dose 11/16/2019). You can continue taking protonix 20mg once a day for 7 weeks for the nausea/ vomiting. You will need to follow up with your primary care doctor in 1 week and have them repeat some blood work (cmp). Follow up with your GI doctor in 1 week. Referrals: Clark Patterson DO [Staff Physician] - 1 Week Becka Singh NP [Primary Care Provider] - 1 Week Disposition: HOME - Home Medications Comprehensive Discharge Medication List: Ambulatory Orders Docusate Sodium [Colace -] 100 mg PO Q8H PRN #90 capsule 12/09/17 Enalapril Maleate [Vasotec -] 5 mg PO DAILY #30 tablet 12/09/17 Hydrochlorothiazide [Hctz -] 12.5 mg PO DAILY #30 cap 12/09/17 Levothyroxine [Synthroid -] 150 mcg PO DAILY@0700 #30 tablet 12/09/17 Polyethylene Glycol 3350 [Miralax 119 gm Btl -] 17 gm PO DAILY #1 bottle Pantoprazole Sodium [Protonix -] 20 mg PO DAILY #30 tablet.ec 11/14/19 Polyethylene Glycol 3350 [Miralax 119 gm Btl -] 17 gm PO BID bottle 11/14/19 Simethicone [Mylicon -] 80 mg PO PRN PRN #30 tab.chew 11/14/19 Vancomycin HCl 1,250 mg IVPB DAILY 2 Days #2 vial 11/14/19 This patient is new to me today: No Emergency Visit: Yes ED Registration Date: 11/04/19 Care time: The patient presented to the Emergency Department on the above date and was hospitalized for further evaluation of their emergent condition. Critical Care patient: No - Discharge Referral Referred to [facility] Med P.C.: No ATTENDING PHYSICIAN STATEMENT I saw and evaluated the patient. I reviewed the resident's note and discussed the case with the resident. I agree with the resident's findings and plan as documented. SUBJECTIVE: OBJECTIVE: ASSESSMENT AND PLAN:
--- NOTE | 2019-11-14 14:13 | PN ---
Teaching Attending Note Name of Resident: Roxane Reich ATTENDING PHYSICIAN STATEMENT I saw and evaluated the patient. I reviewed the resident's note and discussed the case with the resident. I agree with the resident's findings and plan as documented. SUBJECTIVE: No new complaint OBJECTIVE: Vital Signs Temperature 98.1 F 11/14/19 09:53 Pulse Rate 98 H 11/14/19 09:53 Respiratory Rate 18 11/14/19 09:53 Blood Pressure 149/69 11/14/19 09:53 O2 Sat by Pulse Oximetry (%) 100 11/14/19 09:00 General: Young man, comfortable, not in distress HEENT; mucous membranes moist, no anemia, no jaundice, PERRLA, no nystagmus Neck: No JVD, supple, no bruit, thyroid palpably normal, normal carotid pulsations. Chest: Nontender, clear to auscultation bilaterally CVS: S1-S2 regular no murmur/gallop/rub Abdomen: Nondistended, soft, bowel sounds present. Extremities: Left thigh abscess healing no edema., No cough tenderness, pulses present NURSE LDR: Nonfocal ASSESSMENT AND PLAN: CBC, BMP 11/13/19 07:39 11/14/19 06:45 ASSESSMENT AND PLAN: 24 years old male, cerebral palsy, recently discharged after I&D left thigh, call back for MRSA bacteremia, repeat cultures are negative on IV vancomycin ID recommended total 2 weeks of IV vancomycin Problem List - Problems (1) MRSA (methicillin resistant staph aureus) culture positive Assessment/Plan: Previous blood culture grew MRSA patient is growing MRSA from the wound will continue vancomycin possible PICC line for long-term antibiotic. Code(s): Z22.322 - CARRIER OR SUSPECTED CARRIER OF METHICILLIN RESIS STAPH (2) Cerebral palsy Assessment/Plan: Chronic stable Code(s): G80.9 - CEREBRAL PALSY, UNSPECIFIED (3) Hypothyroidism Assessment/Plan: Continue levothyroxine Code(s): E03.9 - HYPOTHYROIDISM, UNSPECIFIED (4) Hypertension Assessment/Plan: Continue INR Code(s): I10 - ESSENTIAL (PRIMARY) HYPERTENSION (5) Functional quadriplegia Assessment/Plan: May be due to vancomycin and dehydration is going to complete antibiotic follow- up BMP as an outpatient Problems reviewed: Yes Code(s): R53.2 - FUNCTIONAL QUADRIPLEGIA
[2019-11-14 14:28] VITALS: BP 154/83; PULSE 108; TEMP 98.6
--- NOTE | 2019-11-14 16:44 | PN.GI ---
GI Progress Note Subjective: Pt seen/examined at bedside, feeling better, tolerating diet, no vomiting per nursing staff. Had large bm. - Objective Vital Signs: Vital Signs Temperature 98.6 F 11/14/19 14:26 Pulse Rate 108 H 11/14/19 14:26 Respiratory Rate 11/14/19 14:26 Blood Pressure 154/83 11/14/19 14:26 O2 Sat by Pulse Oximetry (%) 100 11/14/19 09:00 Constitutional: No Distress, Calm Cardiovascular: Yes: WNL, Regular Rate and Rhythm Respiratory: Yes: WNL, Regular, CTA Bilaterally ...Palpate: Yes: Other (Abd soft, nt, nd) Labs: CBC, BMP 11/13/19 07:39 11/14/19 06:45 Problem List - Problems (1) Vomiting Assessment/Plan: No further vomiting reported, tolerating diet and moving bowels. -Recommend continue PPI daily -Discontinue reglan -Diet as tolerated -Continue miralax daily/prn for constipation Code(s): R11.10 - VOMITING, UNSPECIFIED
--- NOTE | 2019-11-14 18:46 | PN ---
Progress Note, Physician History of Present Illness: Pt seen and examined at bedside. He is more awake and interactive today. - Current Medication List Current Medications: Active Medications Docusate Sodium (Colace -) 100 mg PO Q8H PRN PRN Reason: CONSTIPATION Enalapril Maleate (Vasotec -) 10 mg PO DAILY [facility] Last Admin: 11/14/19 09:49 Dose: 10 mg Hydrochlorothiazide (Hctz -) 12.5 mg PO DAILY [facility] Last Admin: 11/14/19 09:49 Dose: 12.5 mg Vancomycin HCl 1,250 mg/ (Dextrose) 250 mls @ 166.667 mls/hr IVPB DAILY [facility]; Protocol Last Admin: 11/14/19 13:02 Dose: 166.667 mls/hr Levothyroxine Sodium (Synthroid -) 150 mcg PO DAILY@0700 [facility] Last Admin: 11/14/19 07:13 Dose: 150 mcg Ondansetron HCl (Zofran Injection) 4 mg IVPUSH Q8H PRN PRN Reason: NAUSEA Last Admin: 11/08/19 21:03 Dose: 4 mg Pantoprazole Sodium (Protonix -) 20 mg PO DAILY [facility] Last Admin: 11/14/19 09:49 Dose: 20 mg Polyethylene Glycol (Miralax (For Daily Use) -) 17 gm PO BID [facility] Last Admin: 11/14/19 09:52 Dose: Not Given Simethicone (Mylicon -) 80 mg PO QID [facility] Last Admin: 11/14/19 17:30 Dose: 80 mg - Objective Vital Signs: Vital Signs Temperature 98.6 F 11/14/19 14:26 Pulse Rate 108 H 11/14/19 14:26 Respiratory Rate 20 11/14/19 14:26 Blood Pressure 154/83 11/14/19 14:26 O2 Sat by Pulse Oximetry (%) 100 11/14/19 09:00 Constitutional: Yes: Calm Eyes: Yes: Conjunctiva Clear HENT: Yes: Atraumatic Neck: Yes: Supple Cardiovascular: Yes: S1, S2 Respiratory: Yes: CTA Bilaterally Gastrointestinal: Yes: Soft Genitourinary: Yes: Incontinence Edema: No Neurological: Yes: Pre-Existing Deficit Labs: CBC, BMP 11/13/19 07:39 11/14/19 06:45 Problem List - Problems (1) Gram-positive cocci in clusters Code(s): R68.89 - OTHER GENERAL SYMPTOMS AND SIGNS (2) Hypertension Code(s): I10 - ESSENTIAL (PRIMARY) HYPERTENSION (3) Hypothyroidism Code(s): E03.9 - HYPOTHYROIDISM, UNSPECIFIED Assessment/Plan Current Medications Generic Name Dose Route Start Last Admin Trade Name Freq PRN Reason Stop Dose Admin Docusate Sodium 100 mg 11/04/19 04:51 Colace - PO Q8H PRN CONSTIPATION Enalapril Maleate 10 mg 11/06/19 10:00 11/14/19 09:49 Vasotec - PO 10 mg DAILY JUAN Administration Hydrochlorothiazide 12.5 mg 11/04/19 10:00 11/14/19 09:49 Hctz - PO 12.5 mg DAILY JUAN Administration Vancomycin HCl 1,250 mg/ 250 mls @ 166.667 mls/hr 11/14/19 10:00 11/14/19 13: 02 Dextrose IVPB 166.667 mls/hr DAILY JUAN Administration Protocol Levothyroxine Sodium 150 mcg 11/04/19 07:00 11/14/19 07:13 Synthroid - PO 150 mcg DAILY@0700 JUAN Administration Ondansetron HCl 4 mg 11/04/19 18:09 11/08/19 21:03 Zofran Injection IVPUSH 4 mg Q8H PRN Administration NAUSEA Pantoprazole Sodium 20 mg 11/14/19 10:00 11/14/19 09:49 Protonix - PO 20 mg DAILY JUAN Administration Polyethylene Glycol 17 gm 11/09/19 22:00 11/14/19 09:52 Miralax (For Daily Use) - PO Not Given BID JUAN Simethicone 80 mg 11/11/19 14:00 11/14/19 17:30 Mylicon - PO 80 mg QID JUAN Administration Impression 1. ckd 2. atrophic right kidney 3. htn 4. bacteremia 5. htn 6. cerebralpalsy 7. hypothyroid 8. proteinuria Plan - follow renal ultrasound - monitor technical mgr - will need outpt follow up - check prt to technical mgr ratio of possible - cont anabela for now as it will help with proteinuria
== END 2019-11-14 19:00 | disposition home or self-care (01) | DRG 720 ==
LOC: JER 20:52 → JERBED 11-04 03:06 → J7W 11-04 17:29
PROVIDERS: ADMIT Internal Medicine; ATTEND Internal Medicine
DX: A41.02 Sepsis due to Methicillin resistant Staphylococcus aureus (principal); R53.2 Functional quadriplegia; N17.9 Acute kidney failure, unspecified; G80.9 Cerebral palsy, unspecified; E03.9 Hypothyroidism, unspecified; L02.416 Cutaneous abscess of left lower limb; R74.0 Nonspecific elevation of levels of transaminase and lactic acid dehydrogenase [LDH]; F41.9 Anxiety disorder, unspecified; R11.10 Vomiting, unspecified; I12.9 Hypertensive chronic kidney disease with stage 1 through stage 4 chronic kidney disease, or unspecified chronic kidney disease; N18.9 Chronic kidney disease, unspecified
CPT/HCPCS: 36415; 71045-TC-FY; 74176-TC; 76705-TC; 80048; 80053; 80076; 81003; 82550; 82803; 82962; 83605; 83735; 84100; 85025; 85027; 85651; 86140; 86704; 86706; 86707; 86708; 86709; 86803; 87040; 87070; 87086; 87186; 87205; 87340; 93005; 93010; 93306-TC; 99284-25; G0480; J0131; J1644; J7030

== ENCOUNTER 2022-12-27 17:16 | Emergency (ER) | payer OTHER ==
[2022-12-27 17:33] VITALS: BMI 40.0
[2022-12-27] MEDS ORDERED: SODIUM CHLORIDE 1,000 ML IV STA ×2 (17:46→21:26)
[2022-12-27] MEDS ORDERED: ONDANSETRON 4 MG/2 ML VIAL IVPUSH ONE (17:46)
[2022-12-27] MEDS ORDERED: ONDANSETRON 4 MG/2 ML VIAL ONE (18:29)
[2022-12-27 18:56] LABS: VENOUS BASE EXCESS 3.8 mmol/L (-2-2); VENOUS PCO2 45.7 mmHg (38-52); VENOUS PH 7.424 (7.310-7.410)
[2022-12-27 18:58] LABS: BASO % 0.3 % (0-2.0); EOS % 1.4 % (0-4.5); HEMATOCRIT 46.3 % (35.4-49); HEMOGLOBIN 15.2 GM/dL (11.7-16.9); LYMPH % 20.7 % (8-40); MCH 27.4 pg (25.7-33.7); MCHC 32.9 g/dl (32.0-35.9); MEAN CELL VOLUME 83.4 fl (80-96); MEAN PLT VOLUME 7.6 fl (7.5-11.1); MONO % 11.6 % (3.8-10.2); PLATELET COUNT 399 10^3/uL (134-434); RBC 5.55 M/mm3 (4.00-5.60); RDW 13.5 % (11.9-15.9); WHITE BLOOD COUNT 8.6 K/mm3 (4.0-10.0)
[2022-12-27 19:20] LABS: ALBUMIN 4.1 g/dl (3.4-5.0); BLOOD UREA NITROGEN 14.2 mg/dL (7-18); CALCIUM 9.5 mg/dL (8.5-10.1)
[2022-12-27 19:22] LABS: CREATININE 1.2 mg/dL (0.55-1.3)
[2022-12-27 19:24] LABS: BILIRUBIN,TOTAL 0.5 mg/dL (0.2-1)
[2022-12-27 19:39] LABS: PH,URINE 7.5 (5.0-8.0); URINE APPEARANCE CLEAR; URINE BILIRUBIN NEGATIVE (NEGATIVE); URINE COLOR YELLOW; URINE GLUCOSE (UA) NEGATIVE (NEGATIVE); URINE KETONE NEGATIVE (NEGATIVE); URINE LEUK ESTERASE NEGATIVE (NEGATIVE); URINE NITRITE NEGATIVE (NEGATIVE); URINE PROTEIN TRACE (NEGATIVE); URINE UROBILINOGEN 0.2 mg/dL (0.2-1.0)
[2022-12-27 19:57] LABS: LACTIC ACID 2.8 mmol/L (0.4-2.0)
[2022-12-27] MEDS ORDERED: LORazepam 2 MG/ML SDV VIAL IVPUSH ONE (20:17)
[2022-12-27 21:19] VITALS: RESP 22; TEMP 99.5
[2022-12-27] MEDS ORDERED: ACETAMINOPHEN INJECTION 100 ML IVPB ONE (21:20)
[2022-12-27] MEDS ORDERED: ACETAMINOPHEN 1000 MG/100 ML BAG IVPB ONE (21:26)
[2022-12-27] MEDS ORDERED: SODIUM PHOSPHATE/NA BIPHOS 133 ML ENEMA PR ONE (21:26)
[2022-12-27 23:51] VITALS: BP 150/107; PULSE 104
== END 2022-12-28 00:30 | disposition home or self-care (01) ==
LOC: JER 17:16
PROC: 3E033GC Introduction of Other Therapeutic Substance into Peripheral Vein, Percutaneous Approach (ICD-10-PCS; principal; 2022-12-27)
DX: K59.00 Constipation, unspecified (principal)
CPT/HCPCS: 36415; 71046-TC-FY; 74177-TC; 80053; 81003; 82803; 83605; 83690; 84443; 84484; 85025; 87040; 87086; 87186; 93005; 93010; 96361; 96374; 96375; 99285-25; C9803-CS; Q9967; U0003; U0005

== ENCOUNTER 2024-09-05 00:24 | Emergency (ER) | payer OTHER ==
[2024-09-05 00:37] VITALS: BP 169/104; PULSE 132; RESP 20; BMI 31.2
== END 2024-09-05 03:01 | disposition home or self-care (01) ==
LOC: JER 00:24
DX: M79.89 Other specified soft tissue disorders (principal); R00.0 Tachycardia, unspecified
CPT/HCPCS: 93970-TC; 99284-25